=== PATIENT | male | born 1955 | race Caucasian/White ===

== ENCOUNTER 2019-07-22 21:30 | Emergency (ER) | payer OTHER, SELFPAY ==
--- NOTE | ~2019-07-22 | XR_ITS ---
EXAMINATION: XR chest 2V DATE: 07/22/2019 22:21 INDICATION: Right-sided chest pain. Shortness of breath. TECHNIQUE: PA and lateral views of the chest were obtained. COMPARISON: Chest radiograph dated 07/27/2015 FINDINGS: The lungs remain clear with no focal airspace opacities, pulmonary edema, pleural effusion or pneumot horax. The cardiomediastinal silhouette is normal. Mild thoracic dextrocurvature. IMPRESSION: 1. No acute cardiopulmonary disease. Reviewed, dictated and finalized at location A.
[2019-07-22 21:33] VITALS: BP 174/99; PULSE 104; RESP 22; O2SAT 97
--- NOTE | 2019-07-22 21:40 | PC.NURSE ---
Report to MAR Patiño.
--- NOTE | 2019-07-22 21:52 | ECG_ITS ---
Measurements Intervals [place] Rate: 99 P: 40 [place]: 171 QRS: -8 QRSD: 97 T: 3 QT: 328 QTc: 421 Interpretive Statements SINUS RHYTHM FREQUENT VENTRICULAR PREMATURE COMPLEXES INCOMPLETE RIGHT BUNDLE BRANCH BLOCK VOLTAGE CRITERIA FOR LVH BORDERLINE T WAVE ABNORMALITY- INFERIOR LEADS ABNORMAL ECG Electronically Signed On 07-23-2019 7:02:37 CDT by Eligio Ayoub D.O.
--- NOTE | 2019-07-22 21:54 | ED.CHESTPAIN ---
HPI - Chest Pain General Chief Complaint: Chest Pain Stated Complaint: cp Time Seen by Provider: 07/22/19 21:42 History of Present Illness HPI narrative: Patient presents to the ER via private car for right-sided chest pain. Started about 10 AM while at rest at home. Comes in with. Is a spiking sharp chest pain that comes for a second or 2, and will repeat, and then subside. He has no chest pain now. He has been getting increasing shortness of breath over the last month. This is primarily with walking. He has never had a problem walking before. He has had a slight cough in the last couple days. He has had no fever chills or sweats. He has heart palpitations that he feels that is not pain. These are new finding for him. He has a history of hypertension, and is on a statin for cholesterol. His doctor is watching his blood sugar. His appetite is fine, he has some bowel problems with alternating constipation. He is on 2 prostate medicines which is stopped his nocturia. He has had reflux for 30 years and has been on medication for this. 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 MD complaint: chest pain Pertinent past history: other (History of reflux) Onset (ago): hour(s) Timing of current episode: episodic Prior episodes: No Onset: during rest Pain location: right chest Pain radiation: none Severity: mild Quality: sharp Relieving factors: other (Comes and goes on its own without intervention) Exacerbating factors: nothing Treatment prior to arrival: none Risk Factors Coronary artery disease risk factors: hyperlipidemia and hypertension Thoracic aortic dissection risk factors: longstanding hypertension Related Data Home Medications Medication Instructions Recorded Confirmed finasteride 5 mg tablet 5 mg PO DAILY 01/31/19 pantoprazole 40 mg PO QAM 07/22/19 Allergies Allergy/AdvReac Type Severity Reaction Status Date / Time No Known Allergies Allergy Verified 07/22/19 22:04 Review of Systems Review of Systems: Narrative: CONSTITUTIONAL: Denies fever, chills, or sweats. EYES: Denies visual changes, redness, or discharge. ENT: Denies rhinorrhea, congestion, sore throat, or otalgia. CARDIOVASCULAR: He has chest pain, and palpitations, but not edema. RESPIRATORY: He has recently had cough and dyspnea. GASTROINTESTINAL: Denies abdominal pain, nausea, vomiting, or diarrhea. GENITOURINARY: Denies dysuria or hematuria. SKIN: Denies rash or itching. MUSCULOSKELETAL: Denies back pain, joint pain, or myalgia. NEUROLOGIC: Denies headache, numbness, or weakness. PSYCHIATRIC: Denies anxiety or depression. All systems reviewed & are unremarkable except as noted in HPI and below PMFSH Past Medical History Medical History (Updated 07/22/19 @ 22:45 by Ivanna Tse MD) Chronic GERD Essential (primary) hypertension Hx of ulcerative colitis Hyperlipidemia, unspecified Overweight (08/01/15) Surgical History Surgical History (Updated 07/22/19 @ 22:00 by Ivanna Tse MD) History of circumcision History of eye surgery History of sinus surgery Social History Social History (Updated 07/22/19 @ 22:00 by Ivanna Tse MD) Smoking status: Never smoker Alcohol intake: never Substance use: never Exam Narrative: Exam Narrative: GENERAL: Well-appearing, well-nourished, and in no acute distress. He is diaphoretic on his back. HEAD: Normocephalic, atraumatic. EYES: PERRLA and EOMI. ENT: Nares clear, no rhinorrhea or epistaxis. Mucous membranes moist. NECK: Supple. CHEST: Clear to auscultation. No respiratory distress. HEART: Rhythm matches up with the PVCs on the monitor. no murmur heard. Normal peripheral pulses. ABDOMEN: Soft, nontender, nondistended, normal active bowel sounds. EXTREMITIES: Normal range of motion. No edema. SKIN: Warm, dry, no rash. NEURO: No focal deficits. Alert and oriented x3. PSYCH: Normal mood and affect. Course Reevaluation(s) Reevaluation #1: Went in to see the patient
[2019-07-22 22:06] VITALS: PULSE 98
--- NOTE | 2019-07-22 22:06 | PC.NURSE ---
Called lab to add on Trop I
[2019-07-22 22:08] LABS: Basophils Absolute Auto 0.1 K/mm3 (0.0-0.1); Basophils Percent Auto 1.2 % (0.2-1.2); Eosinophils Absolute Auto 0.4 K/mm3 (0-0.3); Eosinophils Percent Auto 5.6 % (0-4.4); Hematocrit 44.5 % (42.0-52.0); Hemoglobin 14.8 g/dL (14.0-18.0); Immature Granulocyte Absolute 0.01 K/mm3 (0.00-0.031); Immature Granulocyte Percent A 0.1 % (0-0.5); Lymphocytes Absolute Auto 2.16 K/mm3 (0.9-3.2); Lymphocytes Percent Auto 28.6 % (18.3-44.2); Mean Corpuscular HGB Conc 33.3 g/dl (32-36); Mean Corpuscular Hemoglobin 29.3 pg (26-34); Mean Corpuscular Volume 88.1 fl (80-100); Mean Platelet Volume 11.9 fl (7.4-10.4); Monocytes Absolute Auto 0.7 K/mm3 (0.1-0.6); Monocytes Percent Auto 9.2 % (2.6-8.5); Neutrophils Absolute Auto 4.2 K/mm3 (1.3-6.7); Neutrophils Percent Auto 55.3 % (45.5-73.1); Platelet Count Result 189 k/mm3 (150-375); Red Blood Count 5.05 M/mm3 (4.6-6.20); Red Cell Distribution Width 14.3 % (11.5-14.5); White Blood Count 7.5 K/mm3 (4.5-10.0)
[2019-07-22 22:21] LABS: Alanine Aminotransferase 26 U/L (4-50); Albumin Level 4.2 g/dL (3.5-5.1); Alkaline Phosphatase 67 U/L (38-126); Aspartate Amino Transferase 31 U/L (17-59); Bilirubin,Total 0.5 mg/dL (0.2-1.3); Blood Urea Nitrogen 20 mg/dL (9-20); Calcium 9.3 mg/dL (8.4-10.2); Carbon Dioxide 32 mmol/L (22-30); Chloride 101 mmol/L (98-107); Estimated CRCL calculation 74 ml/min; Estimated Glomerular Filt Rate 56; Glucose 106 mg/dL (75-110); Potassium 3.8 mmol/L (3.4-5.0); Sodium 139 mmol/L (137-145)
[2019-07-22 22:22] LABS: INR 1.1
[2019-07-22 22:26] VITALS: BP 155/87; PULSE 94; RESP 18; O2SAT 95
[2019-07-22 22:31] LABS: D Dimer 0.27 ug/mL (<0.48)
[2019-07-22 22:33] LABS: NT Pro B Type Natriuretic Pept 58 PG/ML (5-100); Troponin I < 0.012 ng/mL (0.000-0.034)
[2019-07-22 22:52] VITALS: BP 151/79; PULSE 92; RESP 18; O2SAT 96
[2019-07-22 23:34] VITALS: BP 139/65; PULSE 88; RESP 18; O2SAT 96
[2019-07-23 15:57] LABS: SARS-CoV-2 RNA PCR Negative
== END 2019-07-22 23:30 | disposition home or self-care (01) ==
PROVIDERS: Emergency Provider Emergency Medicine; PCP Internal Medicine
DX: R07.89 Other chest pain (principal); I49.3 Ventricular premature depolarization; I10 Essential (primary) hypertension; E78.5 Hyperlipidemia, unspecified; K21.9 Gastro-esophageal reflux disease without esophagitis; E66.3 Overweight; Z68.38 Body mass index [BMI] 38.0-38.9, adult
CPT/HCPCS: 36415; 71046; 80053; 83036; 83880; 84484; 85025; 85380; 85610; 87635; 93005; 99284; C9803; U0003

== ENCOUNTER 2019-07-26 06:53 | Outpatient (CLI) | payer OTHER, SELFPAY ==
[2019-07-26 07:45] LABS: Alanine Aminotransferase 25 U/L (4-50); Alkaline Phosphatase 67 U/L (38-126); Aspartate Amino Transferase 28 U/L (17-59); Bilirubin,Total 0.9 mg/dL (0.2-1.3); Blood Urea Nitrogen 19 mg/dL (9-20); Calcium 8.9 mg/dL (8.4-10.2); Carbon Dioxide 29 mmol/L (22-30); Chloride 103 mmol/L (98-107); Cholesterol 124 mg/dL (0-200); Estimated Glomerular Filt Rate > 60; Glucose 100 mg/dL (75-110); HDL Direct 32 mg/dL; Potassium 3.9 mmol/L (3.4-5.0); Sodium 137 mmol/L (137-145); Triglycerides 91 mg/dL (<150)
[2019-07-26 07:56] LABS: LDL Cholesterol Direct 68 mg/dL
[2019-07-26 08:26] LABS: Hemoglobin A1C 5.7 % (<5.7)
== END 2019-07-26 06:54 | disposition home or self-care (01) ==
PROVIDERS: PCP Internal Medicine; Referring Provider Internal Medicine Cardiovascular Disease; Visit Provider Internal Medicine
DX: E78.5 Hyperlipidemia, unspecified (principal); Z87.898 Personal history of other specified conditions; I10 Essential (primary) hypertension; Z51.81 Encounter for therapeutic drug level monitoring; R00.2 Palpitations
CPT/HCPCS: 36415; 80053; 80061; 83036; 84443

== ENCOUNTER 2019-07-27 07:15 | Outpatient (CLI) | payer OTHER, SELFPAY ==
--- NOTE | 2019-08-08 06:32 | SLEEP_ITS ---
Home sleep test. DATE OF STUDY: 07/27/2019 REASON FOR STUDY: Poor stamina, decreased energy, hypersomnia. HISTORY: This patient is a 63-year-old male, 6 feet tall, weighing 285 pounds with a body mass index of 38.6. For the past several months, he has had decreased stamina and decreased energy. He is not particularly sleepy, but he does have lack of energy during the daytime. He constantly snores and it is frequently loud enough that others complain about it. He occasionally awakens at night with heartburn, belching, or coughing. He does not awaken from sleep feeling short of breath. He does not have trouble sleeping with cold, does not gasp for breath at night or have witnessed breathing difficulties observed by others. He occasionally sweats excessively at night and notices his heart pounding or beating irregularly at night. He does not fall asleep during the day, does not feel sleepy while driving, does not have loss of muscle tone with strong emotion, does not feel paralyzed on waking or falling asleep and does not have vivid dream-like scenes upon awakening or falling asleep. He is never afraid to go to sleep. He occasionally remembers his dreams. He rarely has racing thoughts. He does not feel sad or depressed. He rarely has anxiety. He does not have muscular tension, does not notice parts of his body jerking, and he does not kick at night. He does not have crawly or achy feelings in the legs at night or leg pain at night. He occasionally grinds his teeth. He frequently wakes up feeling stiff in the morning, occasionally with sore or achy muscles. He has dizziness, stomach problems, fatigue and takes antacids regularly. Normal bedtime is between 10:30 and 11:00 p.m., falling asleep within 5-10 minutes, waking at 6:00 a.m. On weekends, he stays up 1 hour later. After an average night of sleep, he feels better in the morning, usually refreshed. PAST MEDICAL HISTORY: Hypertension, palpitations. MEDICATIONS: Ramipril 10 mg a day, hydrochlorothiazide 12.5 mg a day, finasteride 5 mg a day, atorvastatin 10 mg a day, pantoprazole 40 mg for GERD, and tadalafil 5 mg for prostate. HABITS: Never smoked tobacco. Caffeine, one ice tea per day. No alcohol or recreational drugs. DESCRIPTION OF THE STUDY: On the [place] Sleepiness Scale, his score is 4. This was conducted as an unattended portable home sleep test using 4 channel monitoring including respiratory effort channel, oxygen saturation channel, heart rate channe,l and snore channel. The duration of the study was 6 hours 27 minutes. The apnea-hypopnea index was 15.8. The oxygen desaturation index is 14.7. Lowest desaturation was 78%. He had 17 apneas, nine apneas or 53% were obstructive, 8 apneas or 47% were central, and he had 85 hypopneas. He had 1263 snoring events and 95 desaturations, spending 6 minutes or 2% of the study below 88% saturation. Heart rate ranged from 56 to 97. IMPRESSION: This home sleep test shows evidence of at least moderate obstructive sleep apnea syndrome G47.33 with an apnea-hypopnea index of 15.8, minimum saturation of 78%, slight predominance of obstructive apneas. This patient has hypertension. He would benefit by a trial of AutoPAP with pressures 5 cm to 20 cm with an appropriate mask and heated humidifier. Close followup is recommended. If he does not respond to empiric therapy, a CPAP titration is indicated. IDA BEACH M.D. LINUX ADMIN LINUX ADMIN D Darleen MT: Coleen MCNULTY
== END 2019-07-27 07:16 | disposition home or self-care (01) ==
LOC: ANHCSM 07:16
PROVIDERS: PCP Internal Medicine; Visit Provider Internal Medicine Cardiovascular Disease
DX: G47.33 Obstructive sleep apnea (adult) (pediatric) (principal)
CPT/HCPCS: 95806

== ENCOUNTER 2020-01-16 06:58 | Outpatient (CLI) | payer OTHER, SELFPAY ==
[2020-01-16 07:49] LABS: Alanine Aminotransferase 38 U/L (4-50); Albumin Level 3.7 g/dL (3.5-5.1); Alkaline Phosphatase 59 U/L (38-126); Anion Gap 0 mmol/L (8-16); Aspartate Amino Transferase 37 U/L (17-59); Bilirubin,Total 0.9 mg/dL (0.2-1.3); Blood Urea Nitrogen 20 mg/dL (9-20); Calcium 9.2 mg/dL (8.4-10.2); Carbon Dioxide 36 mmol/L (22-30); Chloride 102 mmol/L (98-107); Cholesterol 124 mg/dL (0-200); Estimated Glomerular Filt Rate > 60; Glucose 109 mg/dL (75-110); HDL Direct 31 mg/dL; Potassium 4.2 mmol/L (3.4-5.0); Sodium 138 mmol/L (137-145); Triglycerides 108 mg/dL (<150)
[2020-01-16 07:50] LABS: Hemoglobin A1C 5.6 % (<5.7)
[2020-01-16 07:59] LABS: LDL Cholesterol Direct 66 mg/dL
[2020-01-16 08:21] LABS: Prostate Specific Antigen 0.8 ng/mL (< OR = 4.0)
== END 2020-01-16 06:59 | disposition home or self-care (01) ==
PROVIDERS: PCP Internal Medicine; Visit Provider Internal Medicine
DX: Z51.81 Encounter for therapeutic drug level monitoring (principal); I10 Essential (primary) hypertension; Z12.5 Encounter for screening for malignant neoplasm of prostate; R73.03 Prediabetes; E78.5 Hyperlipidemia, unspecified
CPT/HCPCS: 36415; 80053; 80061; 83036; 84153; G0103

== ENCOUNTER 2020-01-21 01:32 | Outpatient (CLI) | payer OTHER, SELFPAY ==
[2020-01-21 18:52] LABS: SARS-CoV-2 RNA PCR Negative
== END 2020-01-21 01:33 | disposition home or self-care (01) ==
LOC: ANHCOVIDDT 01:33
PROVIDERS: PCP Internal Medicine; Visit Provider Internal Medicine Gastroenterology
DX: Z01.818 Encounter for other preprocedural examination (principal); Z20.828 Contact with and (suspected) exposure to other viral communicable diseases
CPT/HCPCS: 87635; C9803; U0003

== ENCOUNTER 2020-01-24 00:19 | Day surgery (SDC) | payer OTHER, SELFPAY ==
[2020-01-17 15:11] VITALS: BMI 39.4
--- NOTE | 2020-01-23 13:01 | WPDANESEPPF ---
Anes - Initial Pre Proc Eval Procedure: Operation Date: 01/24/20 07:30 Proposed Procedures p Esophagogastroduodenoscopy & Colonoscopy - Scotty Cortes DO Date/Time: 01/23/20 13:01 Surgeon: Scotty Cortes DO Pre Op Diagnosis: Narrowing of Stool, Esophageal Stricture Patient Data Age: 64 Gender: M Height: 1.83 m Weight: 132 kg Allergies Allergy/AdvReac Type Severity Reaction Status Date / Time No Known Allergies Allergy Verified 01/24/20 06:15 Home Medications Medication Instructions Recorded Confirmed Type atorvastatin 10 mg tablet 10 mg PO DAILY #90 tablet 01/18/20 01/24/20 Rx finasteride 5 mg tablet 5 mg PO DAILY #90 tablet 01/18/20 01/24/20 Rx hydrochlorothiazide 12.5 mg capsule 12.5 mg PO DAILY #90 cap 01/18/20 01/24/20 Rx metoprolol succinate 25 mg 25 mg PO DAILY #90 tablet 01/18/20 01/24/20 Rx tablet,extended release 24 hr pantoprazole 40 mg tablet,delayed 40 mg PO QAM #90 tablet 01/18/20 01/24/20 Rx release tadalafil 5 mg tablet 5 mg PO DAILY #90 tablet 01/18/20 01/24/20 Rx valsartan 160 mg tablet 160 mg PO DAILY #90 tablet 01/18/20 01/24/20 Rx Patient hx anesthesia problems: none Family hx anesthesia problems: none PMFSH Past Medical History Medical History (Updated 01/23/20 @ 13:02 by Orville Beasley MD) Chronic GERD Essential (primary) hypertension Hx of ulcerative colitis Hyperlipidemia, unspecified Obesity Surgical History Surgical History History of circumcision History of eye surgery History of sinus surgery Family History Family History Other Diabetes mellitus Hypertension Social History Social History Smoking status: Never smoker Alcohol intake: never Substance use: never Substance use type: does not use Spiritual care concerns: No Anes - Eval Final PreProcedure Day of Procedure 01/23/20 13:01 Patient weight: obese Heart: regular rate and rhythm Lungs: clear to auscultation and normal air movement Airway: Mallampati scale class II Neurological: alert and oriented Last oral intake: >/= 8 hours ASA classification: III Emergent: no Anesthetic plan: proceed Anesthesia type and monitoring: general GIVS Informed Consent: The patient's anesthetic plan and its attendant risks and benefits were discussed with the patient/family/POA. Questions were solicited and answers provided to the satisfaction of the patient/family/POA.
[2020-01-24 06:16] VITALS: BP 124/76; PULSE 97; RESP 16; TEMP 36.1; O2SAT 95; BMI 38.9
[2020-01-24] MEDS: LACTATED RINGERS 1,000 ML 150 ML IV CONT (06:31)
--- NOTE | 2020-01-24 07:32 | PM.IMHP ---
H&P: HPI History of Present Illness Date/Time: 01/24/20 07:32 Chief complaint: Narrowing of Stool, Esophageal Stricture Narrative: Reason for visit EGD and colonoscopy. This very pleasant gentleman seen in consultation request of the primary physician. Impression: Year very pleasant gentleman is here for colonoscopy. He has had a change in bowel habits. This may be functional in nature. Underlying inflammatory or neoplastic disease should be excluded. History of GERD with dysphagia. Underlying ring stricture should be excluded. Obesity. Hypertension. Hyperlipidemia. Recommendation: EGD and colonoscopy. History: This very pleasant gentleman has a history of Reflux disease. He has occasional breakthrough symptoms. He is having dysphagia to solid foods. He is here for EGD. Patient also noted a change in bowel habits. He notices pencil stools. Hematochezia, melena acholic stools or tonight. He is here for colonoscopy. Physical examination: General: very pleasant patient in no acute distress. HEENT: Head was normocephalic sclerae is clear mouth without masses neck was supple. Heart: Rate rhythm regular without S3 or S4. Lungs: CTA. Abdomen: Soft with no guarding or rigidity. Bowel sounds were active. Neurologic: Cranial nerves 2 through 12 intact. No focal defects. No clonus. Musculoskeletal system: Revealed no joint tenderness or swelling no muscle atrophy. Extremities: Reveal no significant edema. Skin: Warm and dry with normal turgor. Mental status: intact. Patient is alert and oriented. Review of Systems Review of Systems: All systems reviewed & are unremarkable except as noted in HPI and below PMFSH Past Medical History Medical History (Updated 01/24/20 @ 07:31 by Scotty Cortes DO) Chronic GERD Essential (primary) hypertension Hyperlipidemia, unspecified Obesity Surgical History Surgical History History of circumcision History of eye surgery History of sinus surgery Family History Family History Other Diabetes mellitus Hypertension Social History Social History Smoking status: Never smoker Alcohol intake: never Substance use: never Substance use type: does not use Spiritual care concerns: No Meds Home Medications and Allergies Home Medications Medication Instructions Recorded Confirmed Type atorvastatin 10 mg tablet 10 mg PO DAILY #90 tablet 01/18/20 01/24/20 Rx finasteride 5 mg tablet 5 mg PO DAILY #90 tablet 01/18/20 01/24/20 Rx hydrochlorothiazide 12.5 mg capsule 12.5 mg PO DAILY #90 cap 01/18/20 01/24/20 Rx metoprolol succinate 25 mg 25 mg PO DAILY #90 tablet 01/18/20 01/24/20 Rx tablet,extended release 24 hr pantoprazole 40 mg tablet,delayed 40 mg PO QAM #90 tablet 01/18/20 01/24/20 Rx release tadalafil 5 mg tablet 5 mg PO DAILY #90 tablet 01/18/20 01/24/20 Rx valsartan 160 mg tablet 160 mg PO DAILY #90 tablet 01/18/20 01/24/20 Rx Allergies Allergy/AdvReac Type Severity Reaction Status Date / Time No Known Allergies Allergy Verified 01/24/20 06:15 Vital Signs Vital Signs - 24 hr 01/24/20 06:16 Temperature 36.1 C L Pulse Rate 97 Respiratory Rate 16 Blood Pressure 124/76 Pulse Oximetry 95
--- NOTE | 2020-01-24 07:54 | SUR.OPER ---
0747- EGD ENDED 755-COLONOSCOPY STARTED
[2020-01-24 08:15] VITALS: BP 109/73; PULSE 73; RESP 13; O2SAT 98
[2020-01-24 08:25] VITALS: BP 112/72; PULSE 77; RESP 22; O2SAT 97
[2020-01-24 08:35] VITALS: BP 119/74; PULSE 77; RESP 20; O2SAT 96
== END 2020-01-24 09:20 | disposition home or self-care (01) ==
PROVIDERS: PCP Internal Medicine; Visit Provider Internal Medicine Gastroenterology
PROC: 0DJ08ZZ Inspection of Upper Intestinal Tract, Via Natural or Artificial Opening Endoscopic (ICD-10-PCS; CPT 43235; principal; 2020-01-24 07:30)
DX: Z12.11 Encounter for screening for malignant neoplasm of colon (principal); K62.1 Rectal polyp; D12.2 Benign neoplasm of ascending colon; D12.0 Benign neoplasm of cecum; K64.8 Other hemorrhoids; K44.9 Diaphragmatic hernia without obstruction or gangrene; K22.2 Esophageal obstruction; K31.7 Polyp of stomach and duodenum; K20.0 Eosinophilic esophagitis; K29.70 Gastritis, unspecified, without bleeding; I10 Essential (primary) hypertension; E78.5 Hyperlipidemia, unspecified; E66.9 Obesity, unspecified; Z68.38 Body mass index [BMI] 38.0-38.9, adult
CPT/HCPCS: 45385; 45380; 43239; 43249; 87081; 88305; C1726; J2704; J7120

== ENCOUNTER 2020-02-01 16:26 | Outpatient (CLI) | payer OTHER, SELFPAY ==
--- NOTE | ~2020-02-01 | CT_ITS ---
EXAMINATION: CT abdomen pelvis w con EXAM DATE: 02/01/2020 17:06 INDICATION: Diaphragmatic hernia without obstruction or gangrene. TECHNIQUE: Spiral CT of the abdomen and pelvis was performed following intravenous injection of 100 m L Omnipaque 350. Axial, coronal and sagittal images were reviewed. The dose-length product (DLP) fo r this examination was 1667.66 mGy-cm. The exposure was tailored according to patient size (auto mA exposure control), and iterative reconstruction (ASIR) was used as additional dose reduction techniqu e. Comparison is made to prior examination from 05/11/2008. FINDINGS: The liver, spleen, adrenal glands and pancreas are unremarkable. Gallbladder is unremarkab le. No biliary obstruction. Portal and splenic veins are patent. Kidneys enhance symmetrically. T here is no hydronephrosis. There is mild prostatomegaly. The bladder is unremarkable. There is no retroperitoneal or pelvic lymphadenopathy. No abdominal wall hernias. The appendix is normal. There is small sliding gastroesophageal hiatal hernia. There is expected am ount of colonic stool. No free intraperitoneal gas. The heart is normal in size. Coronary arterie s were imaged, only minimal left anterior descending punctate calcification. There are no pericardial or pleural effusions. The lung bases are unremarkable. There are no osteoblastic or osteolytic les ions identified. Moderate lower lumbar facet arthropathy. Mild thoracolumbar endplate osteophytosis. IMPRESSION: 1. Small sliding gastroesophageal hiatal hernia. 2. Mild prostatomegaly. Reviewed, dictated and finalized at location A. SURIZATION MECHANIC
== END 2020-02-01 16:27 | disposition home or self-care (01) ==
PROVIDERS: PCP Internal Medicine; Visit Provider Internal Medicine Gastroenterology
DX: K44.9 Diaphragmatic hernia without obstruction or gangrene (principal); N40.0 Benign prostatic hyperplasia without lower urinary tract symptoms
CPT/HCPCS: 74177; Q9967

== ENCOUNTER 2020-02-05 07:35 | Outpatient (CLI) | payer OTHER, SELFPAY ==
--- NOTE | ~2020-02-05 | XR_ITS ---
EXAMINATION: XR UGIAC w barium swallow DATE: 02/05/2020 08:43 INDICATION: Diaphragmatic hernia without obstruction and without gangrene, eosinophilic esophagitis a nd recent esophageal dilatation. TECHNIQUE: The patient drank thick barium, gas-producing crystals, and thin barium. Conventional supi ne abdomen radiographs and fluoroscopy of the esophagus, stomach, and proximal small bowel were perfo rmed. Fluoroscopy exposure time was 2.3 minutes. The DAP for this procedure was 20.568 Gycm2. COMPARISON: None. FINDINGS: There is a short segment, smooth stricture of the distal esophagus likely corresponding to the affected area described in the endoscopy report. Esophageal motility is normal. There is a small sliding hiatal hernia. There was no gastroesophageal reflux with provocative maneuvers. The stomach a nd proximal small bowel show normal folding patterns. IMPRESSION: 1. Short segment smooth stricture of the distal esophagus, consistent with history of eosinophilic es ophagitis. 2. Small sliding hiatal hernia. Reviewed, dictated and finalized at location A. VAULT ATTENDANT IMPRESSION: 1. Short segment smooth stricture of the distal esophagus, consistent with hist ory of eosinophilic esophagitis. 2. Small sliding hiatal hernia.
== END 2020-02-05 07:36 | disposition home or self-care (01) ==
LOC: ANHIMG 07:39
PROVIDERS: PCP Internal Medicine; Visit Provider Internal Medicine Gastroenterology
DX: K44.9 Diaphragmatic hernia without obstruction or gangrene (principal)
CPT/HCPCS: 74246

== ENCOUNTER 2020-02-20 07:34 | Outpatient (CLI) | payer OTHER, SELFPAY ==
--- NOTE | 2020-02-21 06:58 | P.PCNPFT_ITS ---
PFT Interpretation This is a pulmonary function test with pre and post-bronchodilator spirometry, plethysmography and diffusing capacity. The test was performed and results interpreted in accordance with the 2019 and 2005 ATS/ERS Task Force guidelines respectively using the Daniel/Pollevi reference equations. Findings: Spirometry: The contour of the inspiratory and expiratory flow tracing are normal. The pre-bronchodilator FVC is 3.93, 81% predicted. The pre- bronchodilator FEV1 is 3.13 L, 94% predicted. The FEV1:FVC ratio is 80%. The post-bronchodilator FVC is 3.79 L, representing a 4% decrease. The post- bronchodilator FEV1 is 3.12 L, representing no change. Plethysmography: The total lung capacity is 6.54 L, 92% predicted. The functional residual capacity is 2.56 L, 79% predicted. The residual volume is 2.47 L, 96% predicted. Diffusing capacity: The absolute diffusing capacity is 25.2, 83% predicted. The diffusing capacity corrected for alveolar volume is 4.80, 127% predicted. Impression: The spirometry is normal without evidence of an obstructive abnormality. There is no significant improvement after inhaling a single dose of albuterol. The lung volumes are normal. The absolute diffusing capacity is normal and the diffusing capacity corrected for alveolar volume is increased. There are no prior studies for comparison.
== END 2020-02-20 07:35 | disposition home or self-care (01) ==
PROVIDERS: PCP Internal Medicine; Visit Provider Internal Medicine
DX: R06.00 Dyspnea, unspecified (principal)
CPT/HCPCS: 94060; 94726; 94729

== ENCOUNTER 2020-03-19 08:03 | Outpatient (CLI) | payer OTHER, SELFPAY ==
[2020-03-19 08:43] LABS: Alanine Aminotransferase 54 U/L (4-50); Aspartate Amino Transferase 46 U/L (17-59)
== END 2020-03-19 08:04 | disposition home or self-care (01) ==
LOC: ANHLAB 08:06
PROVIDERS: PCP Internal Medicine; Visit Provider Podiatrist Foot & Ankle Surgery
DX: B35.1 Tinea unguium (principal)
CPT/HCPCS: 36415; 84450; 84460

== ENCOUNTER 2020-06-16 15:21 | Outpatient (CLI) | payer OTHER, SELFPAY ==
[2020-06-16 15:46] LABS: Alanine Aminotransferase 26 U/L (4-50); Aspartate Amino Transferase 35 U/L (17-59)
== END 2020-06-16 15:22 | disposition home or self-care (01) ==
LOC: ANHLAB 15:24
PROVIDERS: PCP Internal Medicine; Visit Provider Podiatrist Foot & Ankle Surgery
DX: B35.1 Tinea unguium (principal)
CPT/HCPCS: 36415; 84450; 84460

== ENCOUNTER → 2020-07-07 01:59 | Outpatient (CLI) | payer OTHER, SELFPAY ==
[2020-07-09 12:48] LABS: SARS-CoV-2 RNA PCR Negative
== END ==
PROVIDERS: PCP Internal Medicine; Visit Provider Internal Medicine Gastroenterology
DX: Z01.812 Encounter for preprocedural laboratory examination (principal); Z20.822 Contact with and (suspected) exposure to COVID-19
CPT/HCPCS: C9803; U0003; U0005

== ENCOUNTER 2020-07-10 01:15 | Day surgery (SDC) | payer OTHER, SELFPAY ==
[2020-06-30 15:52] VITALS: BMI 38.8
[2020-07-10 06:21] VITALS: BP 122/79; PULSE 73; RESP 17; TEMP 36; O2SAT 95; BMI 40.2
[2020-07-10] MEDS: LACTATED RINGERS 1,000 ML 150 ML IV CONT (06:24)
--- NOTE | 2020-07-10 07:09 | WPDANESEPPF ---
Anes - Initial Pre Proc Eval Procedure: Operation Date: 07/10/20 07:30 Proposed Procedures p Esophagogastroduodenoscopy - Scotty Cortes DO Date/Time: 07/10/20 07:09 Surgeon: Scotty Cortes DO Pre Op Diagnosis: diaphragmatic hernia w/o obs or gangrene Patient Data Age: 64 Gender: M Height: 6 ft Weight: 134.6 kg Last Vital Signs Temp 96.8 F L 07/10/20 06:21 Pulse 73 07/10/20 06:21 Resp 17 07/10/20 06:21 BP 122/79 07/10/20 06:21 Pulse Ox 95 07/10/20 06:21 Allergies Allergy/AdvReac Type Severity Reaction Status Date / Time No Known Allergies Allergy Verified 07/10/20 06:19 Home Medications Medication Instructions Recorded Confirmed Type atorvastatin 10 mg tablet 10 mg PO DAILY #90 tablet 01/18/20 07/10/20 Rx finasteride 5 mg tablet 5 mg PO DAILY #90 tablet 01/18/20 07/10/20 Rx hydrochlorothiazide 12.5 mg capsule 12.5 mg PO DAILY #90 cap 01/18/20 07/10/20 Rx metoprolol succinate 25 mg 25 mg PO DAILY #90 tablet 01/18/20 07/10/20 Rx tablet,extended release 24 hr valsartan 160 mg tablet 160 mg PO DAILY #90 tablet 01/18/20 07/10/20 Rx pantoprazole [Protonix] 40 mg PO BID #180 tablet 01/24/20 07/10/20 Rx tadalafil 5 mg tablet 5 mg PO DAILY #90 tablet 07/08/20 07/10/20 Rx Patient hx anesthesia problems: none Family hx anesthesia problems: none PMFSH Past Medical History Medical History (Updated 01/24/20 @ 08:17 by Scotty Cortes DO) Adenomatous colon polyp Esophageal stricture Essential (primary) hypertension GERD (gastroesophageal reflux disease) Hernia, diaphragmatic Hyperlipidemia, unspecified Obesity Surgical History Surgical History History of circumcision History of eye surgery History of sinus surgery Family History Family History Other Diabetes mellitus Hypertension Social History Social History Smoking status: Never smoker Alcohol intake: never Substance use: never Substance use type: does not use Living arrangements: with family Spiritual care concerns: No Anes - Eval Final PreProcedure Day of Procedure 07/10/20 07:09 Patient weight: morbidly obese Heart: regular rate and rhythm Lungs: clear to auscultation Airway: Mallampati scale class III Neurological: alert and oriented Last oral intake: >/= 8 hours ASA classification: III Emergent: no Anesthetic plan: proceed Anesthesia type and monitoring: general GIVS and standard monitoring Informed Consent: The patient's anesthetic plan and its attendant risks and benefits were discussed with the patient/family/POA. Questions were solicited and answers provided to the satisfaction of the patient/family/POA.
--- NOTE | 2020-07-10 07:24 | P.CONGI_ITS ---
GI Consult Note Consult date/time: 07/10/20 07:24 HPI: Reason for visit EGD. Very pleasant gentleman seen at the request the primary physician. Impression: GERD/eosinophilic esophagitis. He does have a history of esophageal stricture formation. Adenomatous colon polyps. HLD. HTN. Obesity. Recommendation: EGD. History: This very pleasant gentleman is a history of reflux disease and eosinophilic esophagitis. He is here for endoscopic evaluation to assess for im provement. He does have some mild dysphagia at times. Intolerance to fluticasone. Physical examination: General: very pleasant patient in no acute distress. HEENT: Head was normocephalic sclerae is clear mouth without masses neck was supple. Heart: Rate rhythm regular without S3 or S4. Lungs: CTA. Abdomen: Soft with no guarding or rigidity. Bowel sounds were active. Neurologic: Cranial nerves 2 through 12 intact. No focal defects. No clonus. Musculoskeletal system: Revealed no joint tenderness or swelling no muscle atrophy. Extremities: Reveal no significant edema. Skin: Warm and dry with normal turgor. Mental status: intact. Patient is alert and oriented. Review of Systems Review of Systems: All systems reviewed & are unremarkable except as noted in HPI and below PMFSH Past Medical History Medical History (Updated 01/24/20 @ 08:17 by Scotty Cortes DO) Adenomatous colon polyp Esophageal stricture Essential (primary) hypertension GERD (gastroesophageal reflux disease) Hernia, diaphragmatic Hyperlipidemia, unspecified Obesity Surgical History Surgical History History of circumcision History of eye surgery History of sinus surgery Family History Family History Other Diabetes mellitus Hypertension Social History Social History Smoking status: Never smoker Alcohol intake: never Substance use: never Substance use type: does not use Living arrangements: with family Spiritual care concerns: No Meds Home Medications and Allergies Home Medications Medication Instructions Recorded Confirmed Type atorvastatin 10 mg tablet 10 mg PO DAILY #90 tablet 01/18/20 07/10/20 Rx finasteride 5 mg tablet 5 mg PO DAILY #90 tablet 01/18/20 07/10/20 Rx hydrochlorothiazide 12.5 mg capsule 12.5 mg PO DAILY #90 cap 01/18/20 07/10/20 Rx metoprolol succinate 25 mg 25 mg PO DAILY #90 tablet 01/18/20 07/10/20 Rx tablet,extended release 24 hr valsartan 160 mg tablet 160 mg PO DAILY #90 tablet 01/18/20 07/10/20 Rx pantoprazole [Protonix] 40 mg PO BID #180 tablet 01/24/20 07/10/20 Rx tadalafil 5 mg tablet 5 mg PO DAILY #90 tablet 07/08/20 07/10/20 Rx Allergies Allergy/AdvReac Type Severity Reaction Status Date / Time No Known Allergies Allergy Verified 07/10/20 06:19 Vital Signs Vital Signs - 24 hr 07/10/20 06:21 Temperature 36.0 C L Pulse Rate 73 Respiratory Rate 17 Blood Pressure 122/79 Pulse Oximetry 95
[2020-07-10 07:47] VITALS: BP 108/73; PULSE 74; RESP 21; O2SAT 98
[2020-07-10 07:57] VITALS: BP 112/71; PULSE 74; RESP 22; O2SAT 97
[2020-07-10 08:07] VITALS: BP 126/76; PULSE 72; RESP 16; O2SAT 96
== END 2020-07-10 08:19 | disposition home or self-care (01) ==
PROVIDERS: PCP Internal Medicine; Visit Provider Internal Medicine Gastroenterology
PROC: 0DJ08ZZ Inspection of Upper Intestinal Tract, Via Natural or Artificial Opening Endoscopic (ICD-10-PCS; CPT 43235; principal; 2020-07-10 07:30)
DX: K21.00 Gastro-esophageal reflux disease with esophagitis, without bleeding (principal); K20.0 Eosinophilic esophagitis; K22.2 Esophageal obstruction; K44.9 Diaphragmatic hernia without obstruction or gangrene; I10 Essential (primary) hypertension; E78.5 Hyperlipidemia, unspecified; E66.9 Obesity, unspecified; Z86.010 Personal history of colon polyps
CPT/HCPCS: 43239; 43450; 88305; J2704; J7120

== ENCOUNTER 2020-07-11 08:32 | Outpatient (CLI) | payer OTHER, SELFPAY ==
[2020-07-11 09:02] LABS: Hemoglobin A1C 5.7 % (<5.7)
[2020-07-11 09:04] LABS: Alanine Aminotransferase 28 U/L (4-50); Albumin Level 3.8 g/dL (3.5-5.1); Alkaline Phosphatase 61 U/L (38-126); Anion Gap 4 mmol/L (8-16); Aspartate Amino Transferase 30 U/L (17-59); Bilirubin,Total 0.8 mg/dL (0.2-1.3); Blood Urea Nitrogen 14 mg/dL (9-20); Calcium 9.5 mg/dL (8.4-10.2); Carbon Dioxide 34 mmol/L (22-30); Chloride 106 mmol/L (98-107); Cholesterol 123 mg/dL (0-200); Estimated Glomerular Filt Rate > 60; Glucose 106 mg/dL (75-110); HDL Direct 31 mg/dL; Potassium 4.6 mmol/L (3.4-5.0); Sodium 144 mmol/L (137-145); Triglycerides 94 mg/dL (<150)
[2020-07-11 09:15] LABS: LDL Cholesterol Direct 58 mg/dL
[2020-07-11 09:39] LABS: Vitamin D 25 Hydroxy 60.5 ng/mL
== END 2020-07-11 08:33 | disposition home or self-care (01) ==
PROVIDERS: PCP Internal Medicine; Visit Provider Internal Medicine
DX: E78.5 Hyperlipidemia, unspecified (principal); E55.9 Vitamin D deficiency, unspecified; Z87.898 Personal history of other specified conditions; I10 Essential (primary) hypertension; Z51.81 Encounter for therapeutic drug level monitoring; Z79.899 Other long term (current) drug therapy
CPT/HCPCS: 36415; 80053; 80061; 82306; 83036

== ENCOUNTER 2020-08-07 11:37 | Outpatient (CLI) | payer OTHER, SELFPAY ==
[2020-08-07 13:16] LABS: Basophils Absolute Auto 0.1 K/mm3 (0.0-0.1); Basophils Percent Auto 1.4 % (0.2-1.2); Eosinophils Absolute Auto 0.3 K/mm3 (0-0.3); Eosinophils Percent Auto 5.6 % (0-4.4); Hematocrit 42.3 % (42.0-52.0); Immature Granulocyte Absolute 0.01 K/mm3 (0.00-0.031); Immature Granulocyte Percent A 0.2 % (0-0.5); Lymphocytes Absolute Auto 1.26 K/mm3 (0.9-3.2); Lymphocytes Percent Auto 25.2 % (18.3-44.2); Mean Corpuscular HGB Conc 33.1 g/dl (32-36); Mean Corpuscular Hemoglobin 29.5 pg (26-34); Mean Corpuscular Volume 89.2 fl (80-100); Mean Platelet Volume 11.8 fl (7.4-10.4); Monocytes Absolute Auto 0.4 K/mm3 (0.1-0.6); Monocytes Percent Auto 7.8 % (2.6-8.5); Neutrophils Percent Auto 59.8 % (45.5-73.1); Platelet Count Result 186 k/mm3 (150-375); Red Blood Count 4.74 M/mm3 (4.6-6.20); Red Cell Distribution Width 14.2 % (11.5-14.5)
[2020-08-12 03:09] LABS: Immunoglobulin E 77 kU/L (<=114)
== END 2020-08-07 11:38 | disposition home or self-care (01) ==
LOC: ANHLAB 11:40
PROVIDERS: PCP Internal Medicine
DX: K20.0 Eosinophilic esophagitis (principal)
CPT/HCPCS: 36415; 82785; 85025; 86003

== ENCOUNTER 2020-09-25 15:30 | Outpatient (RCR) | payer OTHER, SELFPAY ==
--- NOTE | 2020-08-04 16:14 | PTOPEVAL ---
Thank you for referring Ron Gutierrez to [facility].? The patient is scheduled to be seen for therapy? 2 x/week for 6 weeks. Please review, sign, date and return this plan of care SHEFALI. I agree with and certify that the following plan of care is medically necessary. Referring Physician Date Attending Provider: Uday Gomez MD Problem Diagnosis right shoulder pain Onset 1 yrs Subjective Information He reports increased pain Query Text:As Reported By Patient/ after practicing and perform Family trap shooting activities over the years. He perform a lot of yardwork at his house and sons house. Denies any stretching program. He has increased pain with sleeping if on right shoulder after 20 minutes. Denies pain with seated task of computer or driving. Increased pain with lifting task especially if out to the side. Diagnostic Tests X-Rays For This Problem Yes: [type 2] acromion without degenerative changes Pain Assessment Self Report Pain Assessment Right Shoulder(s) Reported Pain Level 2 Pain Description Sharp,Tender on Palpation Pain Frequency Chronic,Continuous Lowest Pain Intensity 1 Greatest Pain Intensity 7 Pain Aggravating Factors Exercise/Activity,Lifting, Prolonged Position Pain Behaviors None Pain Score Pain Score 2: Self Report Upper Extremity Range of Motion Scapular/ Shoulder Range of Motion Left Shoulder Flexion - Active 160 Shoulder Extension - Active 53 Shoulder Abduction - Active 175 Shoulder Medial Rotation - Active T7 Reach Behind the Back Shoulder Lateral Rotation - Active T2 Reach Behind the Head Right Shoulder Flexion - Active 150 Shoulder Extension - Active 35 Shoulder Abduction - Active 125 Shoulder Medial Rotation - Active 75 Shoulder Medial Rotation - Active L1 Reach Behind the Back Shoulder Lateral Rotation - Active 65 Shoulder Lateral Rotation - Active C6 Reach Behind the Head Scapular/Shoulder Range of Motion Pain Limitations Scapular/Shoulder Range of Motion all motions Comments Upper Extremity Muscle Strength Testing General Upper Extremity Strength Gross Upper Extremity Strength Comments 5/5 radha shoulder motions, no pain middle trap: 3-/5, lower trap:
[2020-09-01 15:00] VITALS: BP_SYST 170
--- NOTE | 2020-09-01 16:01 | PTOPEVAL ---
Thank you for referring Ron A Page to [facility].? See summary below for detailed information on Ron's progress with UE function. He requires additional skilled therapy services to address remaining impairments and achieve therapy goals. The patient is scheduled to be seen for therapy?2 x/week for 3 weeks. Please review, sign, date and return this plan of care SHEFALI. I agree with and certify that the following plan of care is medically necessary. Referring Physician Date Attending Provider: Uday Gomez MD Physical Therapy Progress Note Diagnosis right shoulder pain Onset 1 yrs Subjective Information He is able to move the Query Text:As Reported By Patient/ shoulder in all directions Family without pain. He is able to perform yard work activities without increased symptoms. He cont to have increased pain with sleeping if on right shoulder after 45 min to 60 minutes. Increased pain with shoulder int. rotation stretch. Increased pain and difficulty with reaching behind back for ADL's. Pain Assessment Self Report Pain Assessment Right Shoulder(s) Reported Pain Level 0 Pain Description Aching,Soreness Pain Frequency Intermittent Lowest Pain Intensity 0 Greatest Pain Intensity 3 Pain Aggravating Factors Exercise/Activity,Prolonged Position Upper Extremity Range of Motion Scapular/ Shoulder Range of Motion Left Shoulder Flexion - Active 160 Shoulder Extension - Active 53 Shoulder Abduction - Active 175 Shoulder Medial Rotation - Active T10:Reach Behind the Back Shoulder Lateral Rotation - Active T1:Reach Behind the Head Right Shoulder Flexion - Active 168 Shoulder Extension - Active 50 Shoulder Abduction - Active 150 Shoulder Abduction - Passive 170 Shoulder Medial Rotation - Active 65 Shoulder Medial Rotation - Passive 70 Shoulder Medial Rotation - Active T11:Reach Behind the Back Shoulder Lateral Rotation - Active 65 Shoulder Lateral Rotation - Passive 78 Shoulder Lateral Rotation - Active T1:Reach Behind the Head Scapular/Shoulder Range of Motion Pain Scapular/Shoulder Range of Motion int/ext rotation motion Upper Extremity Muscle Strength Testing General Upper Extremity Strength Gross Upper Extremity Strength Comments 5/5 radha shoulder motions, no pain middle trap: 3/5, lower trap: 2+/5 Palpation Assessment Palpation
--- NOTE | 2020-09-29 08:52 | PTOPEVAL ---
Physical Therapy Progress Note/Discharge Note Thank you for referring Ron A Page to [facility].? Ron has received 13 therapy visits to address his right shoulder pain and limitations. He reports improved UE function and ability to perform daily task. He demonstrates normal shoulder motion and strength. He has returned to his normal daily task. He has achieved his therapy goals at this time. Will DC skilled therapy services with recommendations for him to continue with his home program. Please review, sign, date and return this discharge summary SHEFALI. I agree with and certify that the following plan of care is medically necessary. Referring Physician Date Attending Provider: Uday Gomez MD Diagnosis right shoulder pain Onset 1 yrs Subjective Information He is able to move the Query Text:As Reported By Patient/ shoulder in all directions Family without pain. His right deltiod is sore from his allergy shots. He denies any problems with yard work. He is able to ari sleeping on left UE for 1 hr. Denies any limitations with reaching behind back or head motions. Pain Assessment Self Report Pain Assessment Right Shoulder(s) Reported Pain Level 0 Upper Extremity Range of Motion Scapular/ Shoulder Range of Motion Left Shoulder Flexion - Active 160 Shoulder Extension - Active 53 Shoulder Abduction - Active 175 Shoulder Medial Rotation - Active T10:Reach Behind the Back Shoulder Lateral Rotation - Active T1:Reach Behind the Head Right Shoulder Flexion - Active 168 Shoulder Extension - Active 52 Shoulder Abduction - Active 170 Shoulder Medial Rotation - Active 65 Shoulder Medial Rotation - Passive 80 Shoulder Medial Rotation - Active T11:Reach Behind the Back Shoulder Lateral Rotation - Active 75 Shoulder Lateral Rotation - Active T1:Reach Behind the Head Upper Extremity Muscle Strength Testing General Upper Extremity Strength Gross Upper Extremity Strength Comments 5/5 radha shoulder motions, no pain middle trap and rhomboid: 4-/5, lower trap: 3/5 PT Clinical Summary Pt referred to therapy due to right shoulder pain. He has received 13 therapy visits from 08/04/20 to 09/25/20. He denies any limitations with shoulder motion, UE daily task, reaching motions in all directions and yardwork task. He reports improved ability
== END 2020-09-30 14:22 | disposition home or self-care (01) ==
LOC: ANHPT 15:30
PROVIDERS: PCP Internal Medicine; Visit Provider Orthopaedic Surgery
DX: M25.511 Pain in right shoulder (principal)
CPT/HCPCS: 97035; 97110; 97140; 97161

== ENCOUNTER → 2020-10-07 10:38 | Outpatient (CLI) | payer OTHER, SELFPAY ==
[2020-10-07 19:41] LABS: SARS-CoV-2 RNA PCR Negative
== END ==
PROVIDERS: PCP Internal Medicine; Visit Provider Internal Medicine
DX: R68.89 Other general symptoms and signs (principal); Z20.822 Contact with and (suspected) exposure to COVID-19
CPT/HCPCS: C9803; U0003; U0005

== ENCOUNTER 2021-01-19 07:06 | Outpatient (CLI) | payer OTHER, SELFPAY ==
[2021-01-19 07:56] LABS: Alanine Aminotransferase 33 U/L (4-50); Albumin Level 4.1 g/dL (3.5-5.1); Alkaline Phosphatase 63 U/L (38-126); Anion Gap 6 mmol/L (8-16); Aspartate Amino Transferase 35 U/L (17-59); Bilirubin,Total 0.8 mg/dL (0.2-1.3); Blood Urea Nitrogen 18 mg/dL (9-20); Calcium 9.4 mg/dL (8.4-10.2); Carbon Dioxide 28 mmol/L (22-30); Chloride 101 mmol/L (98-107); Cholesterol 129 mg/dL (0-200); Estimated Glomerular Filt Rate > 60; Glucose 106 mg/dL (65-110); HDL Direct 36 mg/dL; Potassium 3.9 mmol/L (3.4-5.0); Sodium 135 mmol/L (137-145); Triglycerides 90 mg/dL (<150)
[2021-01-19 08:05] LABS: Hemoglobin A1C 5.6 % (<5.7)
[2021-01-19 08:08] LABS: LDL Cholesterol Direct 67 mg/dL
[2021-01-19 08:26] LABS: Prostate Specific Antigen 0.8 ng/mL (< OR = 4.0)
[2021-01-19 13:35] LABS: Vitamin D 25 Hydroxy 57.6 ng/mL
== END 2021-01-19 07:07 | disposition home or self-care (01) ==
LOC: ANHLAB 07:08
PROVIDERS: PCP Internal Medicine; Visit Provider Internal Medicine
DX: E55.9 Vitamin D deficiency, unspecified (principal); I10 Essential (primary) hypertension; Z51.81 Encounter for therapeutic drug level monitoring; E78.5 Hyperlipidemia, unspecified; Z12.5 Encounter for screening for malignant neoplasm of prostate; Z87.898 Personal history of other specified conditions
CPT/HCPCS: 36415; 80053; 80061; 82306; 83036; 84153; G0103

== ENCOUNTER 2021-02-16 00:17 | Day surgery (SDC) | payer OTHER, SELFPAY ==
[2021-01-28 14:00] VITALS: BMI 39.4
[2021-02-16 11:40] VITALS: BP 162/81; PULSE 71; RESP 18; TEMP 36; O2SAT 99; BMI 39.6
--- NOTE | 2021-02-16 11:52 | P.PNAN_ITS ---
Anes - Initial Pre Proc Eval Procedure: Operation Date: 02/16/21 13:00 Proposed Procedures p Esophagogastroduodenoscopy - Festus Mcnamara MD Date/Time: 02/16/21 11:52 Surgeon: Festus Mcnamara MD Pre Op Diagnosis: eosinophillic esophagitis Patient Data Age: 65 Gender: M Height: 1.83 m Weight: 132 kg Allergies Allergy/AdvReac Type Severity Reaction Status Date / Time No Known Allergies Allergy Verified 02/16/21 11:48 Home Medications Medication Instructions Recorded Confirmed Type pantoprazole [Protonix] 40 mg PO BID #180 tablet 01/24/20 02/16/21 Rx metoprolol succinate 25 mg 25 mg PO DAILY #90 tablet 11/12/20 02/16/21 Rx tablet,extended release 24 hr valsartan 160 mg tablet 160 mg PO DAILY #90 tablet 11/12/20 02/16/21 Rx tadalafil 5 mg tablet 5 mg PO DAILY #90 tablet 11/17/20 02/16/21 Rx hydrochlorothiazide 12.5 mg capsule 12.5 mg PO DAILY #90 cap 12/08/20 02/16/21 Rx finasteride 5 mg tablet 5 mg PO DAILY #90 tablet 12/18/20 02/16/21 Rx atorvastatin 10 mg tablet 10 mg PO DAILY #90 tablet 01/09/21 02/16/21 Rx Patient hx anesthesia problems: none Family hx anesthesia problems: none Results Review: All pre-operative results and documents have been reviewed as part of the pre-operative evaluation. [facility] Past Medical History Medical History (Updated 01/01/21 @ 10:45 by Festus Mcnamara MD) Adenomatous colon polyp Eosinophilic esophagitis Esophageal stricture Essential (primary) hypertension GERD (gastroesophageal reflux disease) Hernia, diaphragmatic Hyperlipidemia, unspecified Obesity Surgical History Surgical History History of circumcision History of eye surgery History of sinus surgery Family History Family History Other Diabetes mellitus Hypertension Social History Social History (Updated 01/23/21 @ 15:31 by Sabrina Segura) Smoking status: Never smoker Second hand tobacco smoke exposure: No Alcohol intake: never Alcohol use details: Rarely Substance use: never Substance use type: does not use Living arrangements: with family Spiritual care concerns: No Anes - Eval Final PreProcedure Day of Procedure 02/16/21 11:52 Patient weight: obese Heart: regular rate and rhythm Lungs: clear to auscultation and normal air movement Airway: Mallampati scale class II Neurological: alert and oriented Last oral intake: >/= 8 hours ASA classification: III Emergent: no Anesthetic plan: proceed Anesthesia type and monitoring: general GIVS and standard monitoring Results Review: All pre-operative results and documents have been reviewed as part of the pre-operative evaluation. Informed Consent: The patient's anesthetic plan and its attendant risks and benefits were discussed with the patient/family/POA. Questions were solicited and answers provided to the satisfaction of the patient/family/POA.
[2021-02-16] MEDS: LACTATED RINGERS 1,000 ML 150 ML IV CONT (12:03)
--- NOTE | 2021-02-16 12:15 | PM.HPGS ---
History of Present Illness History of Present Illness Consent: Risks, benefits, and alternatives have been discussed and questions answered. Patient agrees to proceed with procedure. Chief complaint: eosinophillic esophagitis Narrative: Ron Gutierrez is a 65 year old male with EoE on ppi and also treatment by sign language teacher. Last EGD 06/2020 Review of Systems Constitutional: Constitutional: Denies headache(s) and Denies weakness Eyes: Eyes: Denies blurry vision ENT: Reports Normal hearing present, Denies headache(s) and Denies neck pain Cardiovascular: Cardiovascular: Denies chest pain and Denies dyspnea Respiratory: Respiratory: Denies dyspnea Gastrointestinal: Gastrointestinal: Reports no additional gastrointestinal complaints Genitourinary: Genitourinary: Denies dysuria Musculoskeletal: Musculoskeletal: Denies neck pain Integumentary/Breasts: Skin/Breast: Denies dry skin Neurologic: Reports Normal hearing present, Denies headache(s) and Denies weakness Psychiatric: Psychiatric: Denies anxiety Endocrine: Endocrine: Denies change in body appearance Hematologic/Lymphatic: Hematologic/Lymphatic: Denies easy bleeding Allergic/Immunologic: Allergic/Immunologic: Denies urticaria PMF Past Medical History Medical History (Updated 01/01/21 @ 10:45 by Festus Mcnamara MD) Adenomatous colon polyp Eosinophilic esophagitis Esophageal stricture Essential (primary) hypertension GERD (gastroesophageal reflux disease) Hernia, diaphragmatic Hyperlipidemia, unspecified Obesity Surgical History Surgical History History of circumcision History of eye surgery History of sinus surgery Family History Family History Other Diabetes mellitus Hypertension Social History Social History (Updated 01/23/21 @ 15:31 by Sabrina Segura) Smoking status: Never smoker Second hand tobacco smoke exposure: No Alcohol intake: never Alcohol use details: Rarely Substance use: never Substance use type: does not use Living arrangements: with family Spiritual care concerns: No Meds Home Medications and Allergies Home Medications Medication Instructions Recorded Confirmed Type pantoprazole [Protonix] 40 mg PO BID #180 tablet 01/24/20 02/16/21 Rx metoprolol succinate 25 mg 25 mg PO DAILY #90 tablet 11/12/20 02/16/21 Rx tablet,extended release 24 hr valsartan 160 mg tablet 160 mg PO DAILY #90 tablet 11/12/20 02/16/21 Rx tadalafil 5 mg tablet 5 mg PO DAILY #90 tablet 11/17/20 02/16/21 Rx hydrochlorothiazide 12.5 mg capsule 12.5 mg PO DAILY #90 cap 12/08/20 02/16/21 Rx finasteride 5 mg tablet 5 mg PO DAILY #90 tablet 12/18/20 02/16/21 Rx atorvastatin 10 mg tablet 10 mg PO DAILY #90 tablet 01/09/21 02/16/21 Rx Allergies Allergy/AdvReac Type Severity Reaction Status Date / Time No Known Allergies Allergy Verified 02/16/21 11:48 Vital Signs Vital Signs - 24 hr 02/16/21 11:40 Temperature 96.8 F L Pulse Rate 71 Respiratory Rate 18 Blood Pressure 162/81 H Pulse Oximetry 99 Exam Const: General: comfortable and no acute distress HENMT: General nose exam: Normal nares present Eyes: General: appearance normal, both eyes and all related structures Neck: Neck: no JVD Resp: Auscultation: clear to auscultation bilaterally Cardio: Rate: regular rate Rhythm: regular rhythm GI: Inspection: non-distended GI Palp: Yes Soft to palpation Skin: General skin exam: normal color Neuro: General: gait normal Speech: normal speech Extrem: General: normal to inspection Psych: Mental Status: mental status grossly normal Assessment and Plan Assessment and plan (1) Eosinophilic esophagitis: Code(s): K20.0 - Eosinophilic esophagitis Status: Acute Assessment and Plan: egd with bx, may need dilation based on findings
[2021-02-16 12:34] VITALS: BP 130/61; PULSE 69; RESP 15; O2SAT 98
[2021-02-16 12:44] VITALS: BP 109/57; PULSE 64; RESP 14; O2SAT 97
[2021-02-16 12:54] VITALS: BP 123/67; PULSE 62; RESP 18; O2SAT 99
== END 2021-02-16 13:08 | disposition home or self-care (01) ==
PROVIDERS: PCP Internal Medicine; Visit Provider Internal Medicine Gastroenterology
PROC: 0DJ08ZZ Inspection of Upper Intestinal Tract, Via Natural or Artificial Opening Endoscopic (ICD-10-PCS; CPT 43235; principal; 2021-02-16 13:00)
DX: R13.19 Other dysphagia (principal); K20.0 Eosinophilic esophagitis; K31.7 Polyp of stomach and duodenum; K22.2 Esophageal obstruction; K44.9 Diaphragmatic hernia without obstruction or gangrene; K29.70 Gastritis, unspecified, without bleeding; K29.50 Unspecified chronic gastritis without bleeding; I10 Essential (primary) hypertension; K21.9 Gastro-esophageal reflux disease without esophagitis; E78.5 Hyperlipidemia, unspecified; E66.9 Obesity, unspecified; Z68.39 Body mass index [BMI] 39.0-39.9, adult
CPT/HCPCS: 43239; 43249; 88305; C1726; J2704; J7120

== ENCOUNTER 2021-07-24 09:10 | Outpatient (CLI) | payer OTHER, SELFPAY ==
[2021-07-24 09:44] LABS: Alanine Aminotransferase 25 U/L (6-50); Albumin Level 3.9 g/dL (3.5-5.1); Alkaline Phosphatase 57 U/L (38-126); Anion Gap 3 mmol/L (8-16); Aspartate Amino Transferase 34 U/L (17-59); Bilirubin,Total 0.8 mg/dL (0.2-1.3); Blood Urea Nitrogen 18 mg/dL (9-20); Calcium 8.7 mg/dL (8.4-10.2); Carbon Dioxide 32 mmol/L (22-30); Chloride 103 mmol/L (98-107); Cholesterol 120 mg/dL (0-200); Estimated Glomerular Filt Rate > 60; Glucose 98 mg/dL (65-110); HDL Direct 34 mg/dL; Potassium 4.3 mmol/L (3.4-5.0); Sodium 138 mmol/L (137-145); Triglycerides 95 mg/dL (<150)
[2021-07-24 09:55] LABS: LDL Cholesterol Direct 58 mg/dL
[2021-07-24 10:18] LABS: Hemoglobin A1C 5.8 % (<5.7)
== END 2021-07-24 09:11 | disposition home or self-care (01) ==
PROVIDERS: PCP Internal Medicine; Visit Provider Internal Medicine
DX: I10 Essential (primary) hypertension (principal); Z51.81 Encounter for therapeutic drug level monitoring; E78.5 Hyperlipidemia, unspecified; Z87.898 Personal history of other specified conditions
CPT/HCPCS: 36415; 80053; 80061; 83036

== ENCOUNTER 2021-09-24 19:17 | Emergency (ER) | payer OTHER, SELFPAY ==
--- NOTE | 2021-09-24 19:22 | ED.URI ---
HPI - URI/Sore Throat General Chief Complaint: Upper Respiratory Infection Stated Complaint: sore throat Time Seen by Provider: 09/24/21 19:34 Source: patient and RN notes reviewed Mode of arrival: ambulatory Limitations: no limitations History of Present Illness HPI Narrative: 66-year-old male presents with concern for sore throat that started this morning. He reports painful swallowing. He reports he occasionally has postnasal drainage that may cause a sore throat, however this feels different than usual, it currently feels slightly swollen. He reports a mild headache. He reports he took a COVID test at home today which was negative. He denies any known sick contacts. Patient has history of eosinophilic esophagitis, reports he was seen by his elevated guard recently and has a follow-up appointment in November, however he reports the symptoms do not resemble symptoms he has with eosinophilic esophagitis. MD elicited complaint: sore throat Related Data Allergies Allergy/AdvReac Type Severity Reaction Status Date / Time No Known Allergies Allergy Verified 09/24/21 19:22 Review of Systems Review of Systems: CONSTITUTIONAL: Denies malaise, chills, sweats, or fever. EYES: Denies visual changes, redness, or discharge. ENT: Denies rhinorrhea, congestion, sinus pain, otalgia. Reports sore throat, painful swallowing CARDIOVASCULAR: Denies chest pain, palpitations, or edema. RESPIRATORY: Denies cough. Denies dyspnea. GASTROINTESTINAL: Denies abdominal pain, nausea, vomiting, diarrhea SKIN: Denies rash or itching. MUSCULOSKELETAL: Denies myalgia. NEUROLOGIC: Reports headache. All systems reviewed & are unremarkable except as noted in HPI and below PMFSH Past Medical History Medical History Adenomatous colon polyp Eosinophilic esophagitis Esophageal stricture Essential (primary) hypertension GERD (gastroesophageal reflux disease) Hernia, diaphragmatic Hyperlipidemia, unspecified Obesity Surgical History Surgical History History of circumcision History of eye surgery History of sinus surgery Family History Family History Other Diabetes mellitus Hypertension Social History Social History Smoking status: Never smoker Second hand tobacco smoke exposure: No Alcohol intake: never Alcohol use details: Rarely Substance use: never Substance use type: does not use Spiritual care concerns: No Comments At time of signature, agree with nursing past medical, surgical, social and family history. There is no relevant family history pertinent to the presenting complaint Exam Narrative: GENERAL: Well-appearing and in no acute distress. HEAD: Normocephalic EYES: PERRLA, conjunctivae clear ENT: Nares clear. Mucous membranes moist. TM pearly ruiz with sharp light reflex bilaterally; no tragal tenderness. Oropharynx erythematous without lesions, postnasal drainage noted Tonsils not enlarged and without exudate, no drooling, no hoarseness, no trismus, uvula midline. NECK: Supple. No lymphadenopathy CHEST: Clear to auscultation, breath sounds equal. No wheezing, rhonchi, rales, or stridor. No respiratory distress, speaks in full sentences. HEART: Regular rate and rhythm. No murmur heard. SKIN: Warm, dry, no rash. NEURO: Alert and oriented x3. PSYCH: Normal mood and affect Course Course Emergency Course: Patient is aware of diagnosis, understands and agrees to treatment plan. Anticipatory guidance given. Patient agrees to follow-up as directed and is aware of reasons to seek care at the emergency department. Portions of this record may have been created with voice recognition software Level of Care: Express Care Visit Vital Signs Vital signs: Reviewed. Patient has history of hypertension MDM - URI/So
[2021-09-24 19:24] VITALS: BP 163/85; PULSE 85; RESP 20; TEMP 37; O2SAT 100
== END 2021-09-24 19:45 | disposition home or self-care (01) ==
PROVIDERS: Emergency Provider Nurse Practitioner; PCP Internal Medicine
DX: J02.9 Acute pharyngitis, unspecified (principal); I10 Essential (primary) hypertension; K21.9 Gastro-esophageal reflux disease without esophagitis; E78.5 Hyperlipidemia, unspecified; E66.9 Obesity, unspecified; Z68.39 Body mass index [BMI] 39.0-39.9, adult
CPT/HCPCS: 87081; 87880; 99213; G0463

== ENCOUNTER 2021-11-27 01:16 | Day surgery (SDC) | payer OTHER, SELFPAY ==
[2021-11-11 14:59] VITALS: BMI 39.9
[2021-11-27 06:34] VITALS: BP 152/88; PULSE 77; RESP 18; TEMP 36.4; O2SAT 96
[2021-11-27] MEDS: LACTATED RINGERS 1,000 ML 150 ML IV CONT (06:36)
--- NOTE | 2021-11-27 07:25 | WPDANESEPPF ---
Anes - Initial Pre Proc Eval Procedure: Operation Date: 11/27/21 07:30 Proposed Procedures p Esophagogastroduodenoscopy - Festus Mcnamara MD Date/Time: 11/27/21 07:25 Surgeon: Festus Mcnamara MD Pre Op Diagnosis: eosinophilic esophagitis Patient Data Age: 66 Gender: M Height: 1.83 m Weight: 134.8 kg Last Vital Signs Temp 97.5 F L 11/27/21 06:34 Pulse 77 11/27/21 06:34 Resp 18 11/27/21 06:34 BP 152/88 H 11/27/21 06:34 Pulse Ox 96 11/27/21 06:34 O2 Del Method Room Air 11/27/21 06:34 Allergies Allergy/AdvReac Type Severity Reaction Status Date / Time No Known Allergies Allergy Verified 11/27/21 06:32 Home Medications Medication Instructions Recorded Confirmed Type valsartan 160 mg tablet 160 mg PO DAILY #90 tabs 11/12/20 11/27/21 Rx atorvastatin 10 mg tablet 10 mg PO DAILY #90 tabs 01/09/21 11/27/21 Rx pantoprazole 40 mg tablet,delayed 40 mg PO BID #180 tabs 05/27/21 11/27/21 Rx release (Protonix) metoprolol succinate 25 mg 25 mg PO DAILY #90 tabs 10/16/21 11/27/21 Rx tablet,extended release 24 hr finasteride 5 mg tablet 5 mg PO DAILY #90 tabs 11/09/21 11/27/21 Rx hydrochlorothiazide 12.5 mg capsule 12.5 mg PO DAILY #90 caps 11/09/21 11/27/21 Rx dupilumab 300 mg/2 mL subcutaneous 300 mg subcut WEEKLY 11/11/21 11/27/21 History syringe (Dupixent) tadalafil 5 mg tablet 5 mg PO DAILY 11/27/21 11/27/21 History Patient hx anesthesia problems: none Family hx anesthesia problems: none Results Review: All pre-operative results and documents have been reviewed as part of the pre-operative evaluation. [facility] Past Medical History Medical History Adenomatous colon polyp Eosinophilic esophagitis Esophageal stricture Essential (primary) hypertension GERD (gastroesophageal reflux disease) Hepatitis 1975 Hernia, diaphragmatic Hyperlipidemia, unspecified Obesity Surgical History Surgical History History of circumcision History of eye surgery History of sinus surgery Family History Family History Other Diabetes mellitus Hypertension Social History Social History Smoking status: Never smoker Second hand tobacco smoke exposure: No Alcohol intake: never Alcohol use details: Rarely Substance use: never Substance use type: does not use Living arrangements: with family Spiritual care concerns: No Anes - Eval Final PreProcedure Day of Procedure 11/27/21 07:25 Patient weight: morbidly obese Heart: regular rate and rhythm Lungs: clear to auscultation Airway: Mallampati scale class II Neurological: alert and oriented Last oral intake: >/= 8 hours ASA classification: III Emergent: no Anesthetic plan: proceed Anesthesia type and monitoring: general GIVS and standard monitoring Results Review: All pre-operative results and documents have been reviewed as part of the pre-operative evaluation. Informed Consent: The patient's anesthetic plan and its attendant risks and benefits were discussed with the patient/family/POA. Questions were solicited and answers provided to the satisfaction of the patient/family/POA.
--- NOTE | 2021-11-27 07:28 | PM.HPGS ---
History of Present Illness History of Present Illness Consent: Risks, benefits, and alternatives have been discussed and questions answered. Patient agrees to proceed with procedure. Chief complaint: eosinophilic esophagitis Narrative: Ron Gutierrez is a 66 year old male here for another egd. He has longstanding history of reflux disease and eosinophilic esophagitis who required about 20-25 EGD during his lifetime, EGD 06/2020 showed significant improvement of EoE and dilated with [address] Cortes, then EGD 02/2021 with normal esophagus (only mild reflux in distal esophagus), had non-obstructive ring at GEJ with small HH dilated up to 16.5mm TTS balloon. About 1 month ago started on dupixent, early to tell if any improvement and thinks that may need another dilation. Review of Systems Constitutional: Constitutional: Denies headache(s) and Denies weakness Eyes: Eyes: Denies blurry vision ENT: Reports Normal hearing present, Denies headache(s) and Denies neck pain Cardiovascular: Cardiovascular: Denies chest pain and Denies dyspnea Respiratory: Respiratory: Denies dyspnea Gastrointestinal: Gastrointestinal: Reports no additional gastrointestinal complaints Genitourinary: Genitourinary: Denies dysuria Musculoskeletal: Musculoskeletal: Denies neck pain Integumentary/Breasts: Skin/Breast: Denies dry skin Neurologic: Reports Normal hearing present, Denies headache(s) and Denies weakness Psychiatric: Psychiatric: Denies anxiety Endocrine: Endocrine: Denies change in body appearance Hematologic/Lymphatic: Hematologic/Lymphatic: Denies easy bleeding Allergic/Immunologic: Allergic/Immunologic: Denies urticaria PMFSH Past Medical History Medical History Adenomatous colon polyp Eosinophilic esophagitis Esophageal stricture Essential (primary) hypertension GERD (gastroesophageal reflux disease) Hepatitis 1975 Hernia, diaphragmatic Hyperlipidemia, unspecified Obesity Surgical History Surgical History History of circumcision History of eye surgery History of sinus surgery Family History Family History Other Diabetes mellitus Hypertension Social History Social History Smoking status: Never smoker Second hand tobacco smoke exposure: No Alcohol intake: never Alcohol use details: Rarely Substance use: never Substance use type: does not use Living arrangements: with family Spiritual care concerns: No Meds Home Medications and Allergies Home Medications Medication Instructions Recorded Confirmed Type valsartan 160 mg tablet 160 mg PO DAILY #90 tabs 11/12/20 11/27/21 Rx atorvastatin 10 mg tablet 10 mg PO DAILY #90 tabs 01/09/21 11/27/21 Rx pantoprazole 40 mg tablet,delayed 40 mg PO BID #180 tabs 05/27/21 11/27/21 Rx release (Protonix) metoprolol succinate 25 mg 25 mg PO DAILY #90 tabs 10/16/21 11/27/21 Rx tablet,extended release 24 hr finasteride 5 mg tablet 5 mg PO DAILY #90 tabs 11/09/21 11/27/21 Rx hydrochlorothiazide 12.5 mg capsule 12.5 mg PO DAILY #90 caps 11/09/21 11/27/21 Rx dupilumab 300 mg/2 mL subcutaneous 300 mg subcut WEEKLY 11/11/21 11/27/21 History syringe (Dupixent) tadalafil 5 mg tablet 5 mg PO DAILY 11/27/21 11/27/21 History Allergies Allergy/AdvReac Type Severity Reaction Status Date / Time No Known Allergies Allergy Verified 11/27/21 06:32 Vital Signs Vital Signs - 24 hr 11/27/21 06:34 Temperature 97.5 F L Pulse Rate 77 Respiratory Rate 18 Blood Pressure 152/88 H Pulse Oximetry 96 Oxygen Delivery Room Air Exam Const: General: comfortable and no acute distress HENMT: Face/Nose/Sinus: Normal nares present Eyes: General: appearance normal, both eyes and all related structures Neck: Neck: no JVD
[2021-11-27 07:51] VITALS: BP 133/88; PULSE 76; RESP 20; O2SAT 98
[2021-11-27 08:01] VITALS: BP 103/63; PULSE 72; RESP 20; O2SAT 96
[2021-11-27 08:11] VITALS: BP 133/76; PULSE 77; RESP 22; O2SAT 96
== END 2021-11-27 08:24 | disposition home or self-care (01) ==
PROVIDERS: PCP Internal Medicine; Visit Provider Internal Medicine Gastroenterology
PROC: 0DJ08ZZ Inspection of Upper Intestinal Tract, Via Natural or Artificial Opening Endoscopic (ICD-10-PCS; CPT 43235; principal; 2021-11-27 07:30)
DX: R13.19 Other dysphagia (principal); K21.9 Gastro-esophageal reflux disease without esophagitis; K22.2 Esophageal obstruction; K44.9 Diaphragmatic hernia without obstruction or gangrene; K31.7 Polyp of stomach and duodenum; Z87.898 Personal history of other specified conditions; E78.5 Hyperlipidemia, unspecified; K20.0 Eosinophilic esophagitis; E66.01 Morbid (severe) obesity due to excess calories; Z68.41 Body mass index [BMI] 40.0-44.9, adult
CPT/HCPCS: 43239; 43249; 88305; C1726; J2704; J7120

== ENCOUNTER 2022-01-06 05:55 | Day surgery (SDC) | payer OTHER, SELFPAY ==
[2021-11-30 10:45] VITALS: BMI 40.6
[2021-12-23 10:32] VITALS: BMI 40.0
--- NOTE | 2022-01-05 17:01 | WPDANESEPPF ---
Anes - Initial Pre Proc Eval Procedure: Operation Date: 01/06/22 07:30 Proposed Procedures p Excision 4cm Mass-Left Thigh - Felton Kelly DO Date/Time: 01/05/22 17:01 Surgeon: Felton Kelly DO Pre Op Diagnosis: Left Leg Mass Patient Data Age: 66 Gender: M Height: 1.83 m Weight: 134 kg Allergies Allergy/AdvReac Type Severity Reaction Status Date / Time No Known Allergies Allergy Verified 01/06/22 06:10 Home Medications Medication Instructions Recorded Confirmed Type valsartan 160 mg tablet 160 mg PO DAILY #90 tabs 11/12/20 01/06/22 Rx pantoprazole 40 mg tablet,delayed 40 mg PO BID #180 tabs 05/27/21 01/06/22 Rx release (Protonix) metoprolol succinate 25 mg 25 mg PO DAILY #90 tabs 10/16/21 01/06/22 Rx tablet,extended release 24 hr finasteride 5 mg tablet 5 mg PO DAILY #90 tabs 11/09/21 01/06/22 Rx hydrochlorothiazide 12.5 mg capsule 12.5 mg PO DAILY #90 caps 11/09/21 01/06/22 Rx dupilumab 300 mg/2 mL subcutaneous 300 mg subcut WEEKLY 11/11/21 01/06/22 History syringe (Dupixent) tadalafil 5 mg tablet 5 mg PO DAILY 11/27/21 01/06/22 History atorvastatin 10 mg tablet 10 mg PO DAILY #90 tabs 12/14/21 01/06/22 Rx Patient hx anesthesia problems: none Family hx anesthesia problems: none Results Review: All pre-operative results and documents have been reviewed as part of the pre-operative evaluation. [facility] Past Medical History Medical History Adenomatous colon polyp Eosinophilic esophagitis Esophageal stricture Essential (primary) hypertension GERD (gastroesophageal reflux disease) Hepatitis 1975 Hernia, diaphragmatic Hyperlipidemia, unspecified Obesity Surgical History Surgical History History of circumcision History of eye surgery History of sinus surgery Family History Family History Other Diabetes mellitus Hypertension Social History Social History (Reviewed 11/26/21 @ 15:37 by MANUEL Escobar Smoking status: Never smoker Second hand tobacco smoke exposure: No Alcohol intake: current Alcohol use details: Rarely Substance use: current Substance use type: does not use Living arrangements: with family Spiritual care concerns: No Anes - Eval Final PreProcedure Day of Procedure 01/05/22 17:01 Patient weight: obese Heart: regular rate and rhythm Lungs: clear to auscultation Airway: Mallampati scale class II Neurological: alert and oriented Last oral intake: >/= 8 hours ASA classification: II Emergent: no Anesthetic plan: proceed Anesthesia type and monitoring: general GIVS and standard monitoring Results Review: All pre-operative results and documents have been reviewed as part of the pre-operative evaluation. Informed Consent: The patient's anesthetic plan and its attendant risks and benefits were discussed with the patient/family/POA. Questions were solicited and answers provided to the satisfaction of the patient/family/POA.
[2022-01-06 06:20] VITALS: BP 140/83; PULSE 76; RESP 16; TEMP 36.5; O2SAT 97
[2022-01-06] MEDS: LACTATED RINGERS 1,000 ML 30 ML IV CONT (06:42)
--- NOTE | 2022-01-06 07:27 | PM.IMHP ---
H&P: HPI History of Present Illness Date/Time: 01/06/22 07:27 Chief Complaint: leg mass Narrative: 66 yo man presents for excision of leg mass. He reports no changes since seen in office. Review of Systems Review of Systems: All systems reviewed & are unremarkable except as noted in HPI and below Constitutional: Constitutional: Denies chills, Denies fever(s), Denies headache(s) and Denies weight loss Eyes: Eyes: Denies change in vision ENT: Denies dizziness, Denies headache(s), Denies neck mass and Denies throat swelling Cardiovascular: Cardiovascular: Denies chest pain, Denies lightheadedness and Denies dyspnea Respiratory: Respiratory: Denies cough, Denies dyspnea and Denies wheezing Gastrointestinal: Gastrointestinal: Denies abdominal pain, Denies change in bowel habits, Denies nausea and Denies vomiting Genitourinary: Genitourinary: Denies hematuria and Denies dysuria Musculoskeletal: Musculoskeletal: Reports as per HPI Integumentary/Breasts: Skin/Breast: Reports as per HPI Neurologic: Denies dizziness and Denies headache(s) Allergic/Immunologic: Allergic/Immunologic: Denies throat swelling and Denies wheezing [facility] Past Medical History Medical History Adenomatous colon polyp Eosinophilic esophagitis Esophageal stricture Essential (primary) hypertension GERD (gastroesophageal reflux disease) Hepatitis 1975 Hernia, diaphragmatic Hyperlipidemia, unspecified Obesity Surgical History Surgical History History of circumcision History of eye surgery History of sinus surgery Family History Family History Other Diabetes mellitus Hypertension Social History Social History Smoking status: Never smoker Second hand tobacco smoke exposure: No Alcohol intake: current Alcohol use details: Rarely Substance use: current Substance use type: does not use Living arrangements: with family Spiritual care concerns: No Meds Home Medications and Allergies Home Medications Medication Instructions Recorded Confirmed Type valsartan 160 mg tablet 160 mg PO DAILY #90 tabs 11/12/20 01/06/22 Rx pantoprazole 40 mg tablet,delayed 40 mg PO BID #180 tabs 05/27/21 01/06/22 Rx release (Protonix) metoprolol succinate 25 mg 25 mg PO DAILY #90 tabs 10/16/21 01/06/22 Rx tablet,extended release 24 hr finasteride 5 mg tablet 5 mg PO DAILY #90 tabs 11/09/21 01/06/22 Rx hydrochlorothiazide 12.5 mg capsule 12.5 mg PO DAILY #90 caps 11/09/21 01/06/22 Rx dupilumab 300 mg/2 mL subcutaneous 300 mg subcut WEEKLY 11/11/21 01/06/22 History syringe (Dupixent) tadalafil 5 mg tablet 5 mg PO DAILY 11/27/21 01/06/22 History atorvastatin 10 mg tablet 10 mg PO DAILY #90 tabs 12/14/21 01/06/22 Rx Allergies Allergy/AdvReac Type Severity Reaction Status Date / Time No Known Allergies Allergy Verified 01/06/22 06:10 Vital Signs Vital Signs - 24 hr 01/06/22 06:20 Temperature 36.5 C Pulse Rate 76 Respiratory Rate 16 Blood Pressure 140/83 Pulse Oximetry 97 Oxygen Delivery Room Air Exam Const: General: no acute distress and alert Orientation/consciousness: patient oriented x3 HENMT: Head: normocephalic and atraumatic Ears: hearing grossly normal bilaterally Face/Nose/Sinus: Normal nares present Mouth: Yes Normal oral and palatal mucosa present Eyes: Periorbital: periorbital findings normal Sclera: sclerae normal EOM: EOMs intact bilaterally Neck: Neck: normal visual inspection, no lymphadenopathy and trachea midline Chest: Chest palpation & inspection: normal inspection of the chest Resp: Effort & Inspection: normal respiratory effort Auscultation: clear to auscultation bilaterally Cardio: Jugular venous distension: no JVD Rate: regular rate Rhythm: reg
--- NOTE | 2022-01-06 07:29 | WPDHPUPDATE1 ---
History and Physical Update Update Date/Time: 01/06/22 07:29 History and Physical has been reviewed, including an updated exam of the patient. There are NO changes in the patient's condition. Risks, benefits, and alternatives have been discussed and questions answered. Patient agrees to proceed with procedure.
[2022-01-06] MEDS: LIDO 1%/EPINEPHRINE 1:100,000 20 ML VIAL 15 ML INFILTRATE (08:01)
--- NOTE | 2022-01-06 08:02 | P.OP_ITS ---
Procedure Note - Detailed Date of Procedure 01/06/22 Pre-op Diagnosis Left Leg Mass Post-op Diagnosis Same Procedure Performed excision of 4 cm left leg mass Surgeon Felton Kelly, DO Anesthesia MAC and Local ( 1% lidocaine with epinephrine) Indications this is a 66-year-old man who presented with a mass on his upper inner thigh that had been present for several years. This has gradually increased in size over the years. Discussions were made with the patient about treatment options and decision was made to proceed with excision of 4 cm left leg mass. Findings The 4 cm left leg mass was completely excised. This appeared to have a lipomatous consistency. It was within the subcutaneous space and did not appear to be tracking deeper into the muscle. The mass was completely excised and sent to the lab for pathology. Description of Procedure Procedure as well as risks, benefits, and alternatives were discussed with the patient. Written consent was obtained and placed in chart prior to procedure. Patient was brought back to surgical suite. He was placed supine on operating table. Time-out was done to confirm patient and procedure. IV sedation was then administered by the anesthesia department. His left upper thigh was prepped and draped in sterile fashion using chlorhexidine prep. 1% lidocaine with epinephrine was infiltrated locally around the mass. A 4 cm oblique incision was then made directly over the mass using a 15 blade scalpel. Electrocautery was used for hemostasis and for careful dissection around the mass. Mass was completely excised and sent to the lab for pathology. The wound bed was then inspected and hemostasis was achieved with electrocautery. No other masses or abnormalities were noted. The subcutaneous space was then closed using 3-0 Vicryl simple interrupted sutures. The skin was then approximated using 4-0 Monocryl running subcuticular suture. Exofin glue was then applied on top. The patient was then awakened from anesthesia and transf erred to recovery. Estimated Blood Loss 5 Pathology Yes ( Leg mass) Complications No immediate complications Condition Stable Disposition Same day [facility] Billing Surgery - Charge Forward: Surgery Billing
[2022-01-06 08:07] VITALS: BP 129/76; PULSE 83; RESP 16; O2SAT 100
[2022-01-06 08:22] VITALS: BP 128/77; PULSE 70; RESP 15; O2SAT 100
[2022-01-06 08:37] VITALS: BP 131/76; PULSE 67; RESP 15; O2SAT 100
[2022-01-06 08:52] VITALS: BP 126/65; PULSE 66; RESP 15; O2SAT 98
--- NOTE | 2022-01-06 10:24 | WPDANESPN ---
Anes - Prog Note Post-Op Date/Time: 01/06/22 10:24 Cardiovascular status: normal Respiratory status: normal Airway patency: baseline Mental status: baseline Post-Op hydration status: normal Vital Signs: Last Vital Signs Temp 36.5 C 01/06/22 06:20 Pulse 66 01/06/22 08:52 Resp 15 01/06/22 08:52 BP 126/65 01/06/22 08:52 Pulse Ox 98 01/06/22 08:52 O2 Del Method Room Air 01/06/22 08:52 O2 Flow Rate 6 01/06/22 08:07 Pain Score (VAS): 0 Post-procedural complaints: none Patient Feedback: Patient satisfied with anesthetic care. Other Findings: Patient vital signs back to baseline. Patient denies nausea and vomiting. Patient's pain under control. Patient OK for discharge.
== END 2022-01-06 09:15 | disposition home or self-care (01) ==
PROVIDERS: PCP Internal Medicine; Visit Provider Surgery
PROC: (CPT 27337; principal; 2022-01-06 07:30)
DX: R22.42 Localized swelling, mass and lump, left lower limb (principal)
CPT/HCPCS: 27337

== ENCOUNTER 2022-01-06 08:00 | Outpatient (NON) | payer OTHER, SELFPAY | END 2022-01-06 08:01 | disposition home or self-care (01) | PROVIDERS: PCP Internal Medicine; Visit Provider Surgery | DX: R22.42 Localized swelling, mass and lump, left lower limb (principal) | CPT/HCPCS: 88304 ==

== ENCOUNTER 2022-01-20 07:10 | Outpatient (CLI) | payer OTHER, SELFPAY ==
[2022-01-20 09:07] LABS: Alanine Aminotransferase 27 U/L (6-50); Alkaline Phosphatase 63 U/L (38-126); Anion Gap 6 mmol/L (8-16); Aspartate Amino Transferase 28 U/L (17-59); Bilirubin,Total 0.8 mg/dL (0.2-1.3); Blood Urea Nitrogen 17 mg/dL (9-20); Calcium 8.9 mg/dL (8.4-10.2); Carbon Dioxide 32 mmol/L (22-30); Chloride 104 mmol/L (98-107); Cholesterol 126 mg/dL (0-200); Estimated Glomerular Filt Rate > 60; Glucose 106 mg/dL (65-110); HDL Direct 36 mg/dL; Potassium 4.1 mmol/L (3.4-5.0); Sodium 142 mmol/L (137-145); Triglycerides 91 mg/dL (<150)
[2022-01-20 09:25] LABS: LDL Cholesterol Direct 61 mg/dL
[2022-01-20 09:31] LABS: Vitamin D 25 Hydroxy 43.9 ng/mL
[2022-01-20 09:35] LABS: Prostate Specific Antigen 1.2 ng/mL (< OR = 4.0)
== END 2022-01-20 07:11 | disposition home or self-care (01) ==
LOC: ANHLAB 07:12
PROVIDERS: PCP Internal Medicine; Visit Provider Internal Medicine
DX: Z12.5 Encounter for screening for malignant neoplasm of prostate (principal); I10 Essential (primary) hypertension; Z51.81 Encounter for therapeutic drug level monitoring; E78.5 Hyperlipidemia, unspecified; E55.9 Vitamin D deficiency, unspecified; Z87.898 Personal history of other specified conditions
CPT/HCPCS: 36415; 80053; 80061; 82306; 83036; 84153; G0103

== ENCOUNTER → 2022-05-01 11:32 | Outpatient (CLI) | payer OTHER, SELFPAY ==
--- NOTE | ~2022-05-01 | XR_ITS ---
Lumbosacral Spine: AP and lateral views Clinical History: Pain Findings: The normal lordotic curve is maintained. The vertebral bodies and posterior elements are i ntact. Moderate degenerative disc change at the T12-L1. There is mild degenerative disc change at L1- L2. There is facet arthropathy from L4 through S1. The sacroiliac joints are normally outlined. Impression: Mild degenerative changes, as above. Reviewed, dictated and finalized at location M. Impression: Mild degenerative changes, as above.
--- NOTE | ~2022-05-01 | XR_ITS ---
Thoracic spine: Clinical Indication: Pain AP and lateral views were performed. No fracture is seen. There is normal alignment of the vertebrae. Mild to moderate degenerative disc change at T11-T12 and T12-L1. Paravertebral soft tissues appear normal. Impression: [id number] degenerative disc change at the lower thoracic spine, as detailed above. Reviewed, dictated and finalized at location . Impression: [id number] degenerative disc change at the lower thoracic spine, as kezia led above.
--- NOTE | ~2022-05-01 | XR_ITS ---
Cervical Spine: AP, lateral, open-mouth views Clinical History: Pain Findings: The normal lordotic curve is maintained. The vertebral bodies and posterior elements appea r intact. The intervertebral disc spaces are well maintained. Pre-vertebral soft tissues are unremar kable. Impression: No significant abnormality is seen. Reviewed, dictated and finalized at [facility]. Impression: No significant abnormality is seen.
== END ==
PROVIDERS: PCP Internal Medicine; Visit Provider Chiropractor
DX: M51.36 Other intervertebral disc degeneration, lumbar region (principal); M51.34 Other intervertebral disc degeneration, thoracic region
CPT/HCPCS: 72040; 72070; 72100

== ENCOUNTER 2022-07-30 07:30 | Outpatient (CLI) | payer OTHER, SELFPAY ==
[2022-07-30 07:48] LABS: Hemoglobin 13.7 g/dL (14.0-18.0); Mean Corpuscular HGB Conc 32.6 g/dl (32-36); Mean Corpuscular Hemoglobin 29.1 pg (26-34); Mean Corpuscular Volume 89.4 fl (80-100); Mean Platelet Volume 10.9 fl (7.4-10.4); Platelet Count Result 162 k/mm3 (150-375); Red Cell Distribution Width 14.1 % (11.5-14.5); White Blood Count 5.1 K/mm3 (4.5-10.0)
[2022-07-30 08:27] LABS: Alanine Aminotransferase 27 U/L (6-50); Albumin Level 3.9 g/dL (3.5-5.1); Alkaline Phosphatase 62 U/L (38-126); Anion Gap 4 mmol/L (8-16); Aspartate Amino Transferase 31 U/L (17-59); Bilirubin,Total 0.8 mg/dL (0.2-1.3); Blood Urea Nitrogen 13 mg/dL (9-20); Calcium 8.7 mg/dL (8.4-10.2); Carbon Dioxide 32 mmol/L (22-30); Chloride 104 mmol/L (98-107); Cholesterol 116 mg/dL (0-200); Estimated Glomerular Filt Rate > 60; Glucose 107 mg/dL (65-110); HDL Direct 34 mg/dL; Potassium 4.2 mmol/L (3.4-5.0); Sodium 140 mmol/L (137-145); Triglycerides 78 mg/dL (<150)
[2022-07-30 08:38] LABS: LDL Cholesterol Direct 61 mg/dL
[2022-07-30 10:39] LABS: Vitamin D 25 Hydroxy 40.5 ng/mL
[2022-07-30 11:11] LABS: Hemoglobin A1C 5.5 % (<5.7)
== END 2022-07-30 07:31 | disposition home or self-care (01) ==
LOC: ANHLAB 07:31
PROVIDERS: PCP Family Medicine; Visit Provider Family Medicine
DX: Z00.00 Encounter for general adult medical examination without abnormal findings (principal); E55.9 Vitamin D deficiency, unspecified; Z87.898 Personal history of other specified conditions; K21.9 Gastro-esophageal reflux disease without esophagitis; N40.0 Benign prostatic hyperplasia without lower urinary tract symptoms; Z87.19 Personal history of other diseases of the digestive system; I10 Essential (primary) hypertension; Z51.81 Encounter for therapeutic drug level monitoring; E78.5 Hyperlipidemia, unspecified
CPT/HCPCS: 36415; 80053; 80061; 82306; 83036; 85027

== ENCOUNTER 2022-09-29 10:04 | Outpatient (CLI) | payer OTHER, SELFPAY ==
[2022-09-29 19:26] LABS: Hematocrit 43.8 % (42.0-52.0); Hemoglobin 14.6 g/dL (14.0-18.0); Mean Corpuscular HGB Conc 33.3 g/dl (32-36); Mean Corpuscular Hemoglobin 29.7 pg (26-34); Mean Corpuscular Volume 89.2 fl (80-100); Platelet Count Result 211 k/mm3 (150-375); Red Blood Count 4.91 M/mm3 (4.6-6.20); Red Cell Distribution Width 14.9 % (11.5-14.5); White Blood Count 10.7 K/mm3 (4.5-10.0)
[2022-09-29 20:52] LABS: Alanine Aminotransferase 32 U/L (6-50); Alkaline Phosphatase 67 U/L (38-126); Anion Gap 6 mmol/L (8-16); Aspartate Amino Transferase 30 U/L (17-59); Bilirubin,Total 0.6 mg/dL (0.2-1.3); Blood Urea Nitrogen 23 mg/dL (9-20); Calcium 9.2 mg/dL (8.4-10.2); Carbon Dioxide 27 mmol/L (22-30); Chloride 107 mmol/L (98-107); Estimated Glomerular Filt Rate 55; Glucose 92 mg/dL (65-110); Potassium 4.3 mmol/L (3.4-5.0); Sodium 140 mmol/L (137-145)
== END 2022-09-29 10:05 | disposition home or self-care (01) ==
PROVIDERS: Visit Provider Family Medicine
DX: Z00.00 Encounter for general adult medical examination without abnormal findings (principal); R35.0 Frequency of micturition
CPT/HCPCS: 36415; 80053; 85027; 87086

== ENCOUNTER → 2022-09-29 10:21 | Outpatient (CLI) | payer OTHER, SELFPAY ==
--- NOTE | ~2022-09-29 | MR_ITS ---
EXAMINATION: MR brain/brain stem wo con DATE: 09/29/2022 11:14 INDICATION: Persistent migraine. TECHNIQUE: Magnetic resonance imaging (MRI) of the brain and brainstem was performed without intraven ous contrast. COMPARISON: Brain MRA 01/15/2005 FINDINGS: There are scattered areas of nonspecific increased T2-weighted signal intensity in the cere bral white matter. There is no intracranial hemorrhage, acute infarction, or abnormal intracranial ma ss lesion. The ventricles are normal in size. There is mild mucosal thickening in the ethmoid sinuses . The orbits are normal. The mastoid air cells are normal. IMPRESSION: 1. Moderate nonspecific cerebral white matter disease, which likely represents chronic small vessel i schemic disease. Reviewed, dictated and finalized at location A. IMPRESSION: 1. Moderate nonspecific cerebral white matter disease, which likely represents chronic small vessel ischemic disease.
== END ==
PROVIDERS: PCP Family Medicine; Visit Provider Family Medicine
DX: G43.511 Persistent migraine aura without cerebral infarction, intractable, with status migrainosus (principal); R90.82 White matter disease, unspecified
CPT/HCPCS: 70551

== ENCOUNTER 2022-12-03 01:13 | Day surgery (SDC) | payer OTHER, SELFPAY ==
[2022-11-25 12:09] VITALS: BMI 40.0
[2022-12-03 06:22] VITALS: BP 156/84; PULSE 92; RESP 18; TEMP 36.4; O2SAT 99; BMI 39.5
[2022-12-03] MEDS: LACTATED RINGERS 1,000 ML 150 ML IV CONT (06:37)
--- NOTE | 2022-12-03 07:25 | WPDANESEPPF ---
Anes - Initial Pre Proc Eval Procedure: Operation Date: 12/03/22 07:30 Proposed Procedures p Esophagogastroduodenoscopy - Festus Mcnamara MD Date/Time: 12/03/22 07:25 Surgeon: Festus Mcnamara MD Pre Op Diagnosis: eosinophilic esophagitis, GERD Patient Data Age: 67 Gender: M Height: 1.83 m Weight: 132.3 kg Last Vital Signs Temp 97.6 F 12/03/22 06:22 Pulse 92 12/03/22 06:22 Resp 18 12/03/22 06:22 BP 156/84 H 12/03/22 06:22 Pulse Ox 99 12/03/22 06:22 O2 Del Method Room Air 12/03/22 06:22 Allergies Allergy/AdvReac Type Severity Reaction Status Date / Time No Known Allergies Allergy Verified 12/03/22 06:21 Home Medications Medication Instructions Recorded Confirmed Type dupilumab 300 mg/2 mL subcutaneous 300 mg subcut WEEKLY 11/11/21 12/03/22 History syringe (Dupixent) atorvastatin 10 mg tablet 10 mg PO DAILY #90 tabs 01/25/22 12/03/22 Rx finasteride 5 mg tablet 5 mg PO DAILY #90 tabs 01/25/22 12/03/22 Rx pantoprazole 40 mg tablet,delayed 40 mg PO BID #180 tabs 01/25/22 12/03/22 Rx release (Protonix) rizatriptan 10 mg tablet (Maxalt) See Rx Instructions PO .COMPLEX 09/23/22 12/03/22 Rx #30 tabs metoprolol succinate 50 mg 50 mg PO DAILY 11/25/22 12/03/22 History tablet,extended release 24 hr nifedipine 60 mg tablet,extended 60 mg PO DAILY 12/03/22 12/03/22 History release Patient hx anesthesia problems: none Family hx anesthesia problems: none Results Review: All pre-operative results and documents have been reviewed as part of the pre-operative evaluation. [facility] Past Medical History Medical History Adenomatous colon polyp Eosinophilic esophagitis Esophageal stricture Essential (primary) hypertension GERD (gastroesophageal reflux disease) Hepatitis 1975 Hernia, diaphragmatic Hyperlipidemia, unspecified Obesity Surgical History Surgical History History of circumcision History of eye surgery History of sinus surgery Hx of excision of mass excision of 4cm thigh mass on 01/06/22. Family History Family History Other Diabetes mellitus Hypertension Social History Social History Smoking status: Never smoker Second hand tobacco smoke exposure: No Alcohol intake: current Alcohol use details: Rarely Substance use: current Substance use type: does not use Lack of Transportation: No Lack of Food: Never True Current Housing: I Have Housing Concerned About Future Housing: No Difficulty Paying Gas/Electric Bills: No Difficulty Paying for Meds: No Currently Unemployed: No Education: Master's Degree or Higher Difficulty w/ Childcare or Family Care: No Living arrangements: with family Spiritual care concerns: No Anes - Eval Final PreProcedure Day of Procedure 12/03/22 07:25 Patient weight: morbidly obese Heart: regular rate and rhythm Lungs: clear to auscultation Airway: Mallampati scale class III Neurological: alert and oriented Last oral intake: >/= 8 hours ASA classification: III Emergent: no Anesthetic plan: proceed Anesthesia type and monitoring: general GIVS and standard monitoring Results Review: All pre-operative results and documents have been reviewed as part of the pre-operative evaluation. Informed Consent: The patient's anesthetic plan and its attendant risks and benefits were discussed with the patient/family/POA. Questions were solicited and answers provided to the satisfaction of the patient/family/POA.
--- NOTE | 2022-12-03 07:28 | PM.HPGS ---
History of Present Illness History of Present Illness Consent: Risks, benefits, and alternatives have been discussed and questions answered. Patient agrees to proceed with procedure. Chief complaint: eosinophilic esophagitis, GERD Narrative: Ron Gutierrez is a 67 year old male here for another egd. He has longstanding history of reflux disease and eosinophilic esophagitis who required about more than 25 EGD during his lifetime, last EGD 2021 showed normal esophagus including biopsies, non-obstructive ring at [facility]J with small HH dilated up to 18 mm TTS balloon. Using dupixent, ppi and better, last episode of choking more than 4 months ago. Review of Systems Constitutional: Constitutional: Denies headache(s) and Denies weakness Eyes: Eyes: Denies blurry vision ENT: Reports Normal hearing present, Denies headache(s) and Denies neck pain Cardiovascular: Cardiovascular: Denies chest pain and Denies dyspnea Respiratory: Respiratory: Denies dyspnea Gastrointestinal: Gastrointestinal: Reports no additional gastrointestinal complaints Genitourinary: Genitourinary: Denies dysuria Musculoskeletal: Musculoskeletal: Denies neck pain Integumentary/Breasts: Skin/Breast: Denies dry skin Neurologic: Reports Normal hearing present, Denies headache(s) and Denies weakness Psychiatric: Psychiatric: Denies anxiety Endocrine: Endocrine: Denies change in body appearance Hematologic/Lymphatic: Hematologic/Lymphatic: Denies easy bleeding Allergic/Immunologic: Allergic/Immunologic: Denies urticaria PMFSH Past Medical History Medical History Adenomatous colon polyp Eosinophilic esophagitis Esophageal stricture Essential (primary) hypertension GERD (gastroesophageal reflux disease) Hepatitis 1975 Hernia, diaphragmatic Hyperlipidemia, unspecified Obesity Surgical History Surgical History History of circumcision History of eye surgery History of sinus surgery Hx of excision of mass excision of 4cm thigh mass on 01/06/22. Family History Family History Other Diabetes mellitus Hypertension Social History Social History Smoking status: Never smoker Second hand tobacco smoke exposure: No Alcohol intake: current Alcohol use details: Rarely Substance use: current Substance use type: does not use Lack of Transportation: No Lack of Food: Never True Current Housing: I Have Housing Concerned About Future Housing: No Difficulty Paying Gas/Electric Bills: No Difficulty Paying for Meds: No Currently Unemployed: No Education: Master's Degree or Higher Difficulty w/ Childcare or Family Care: No Living arrangements: with family Spiritual care concerns: No Meds Home Medications and Allergies Home Medications Medication Instructions Recorded Confirmed Type dupilumab 300 mg/2 mL subcutaneous 300 mg subcut WEEKLY 11/11/21 12/03/22 History syringe (Dupixent) atorvastatin 10 mg tablet 10 mg PO DAILY #90 tabs 01/25/22 12/03/22 Rx finasteride 5 mg tablet 5 mg PO DAILY #90 tabs 01/25/22 12/03/22 Rx pantoprazole 40 mg tablet,delayed 40 mg PO BID #180 tabs 01/25/22 12/03/22 Rx release (Protonix) rizatriptan 10 mg tablet (Maxalt) See Rx Instructions PO .COMPLEX 09/23/22 12/03/22 Rx #30 tabs metoprolol succinate 50 mg 50 mg PO DAILY 11/25/22 12/03/22 History tablet,extended release 24 hr nifedipine 60 mg tablet,extended 60 mg PO DAILY 12/03/22 12/03/22 History release Allergies Allergy/AdvReac Type Severity Reaction Status Date / Time No Known Allergies Allergy Verified 12/03/22 06:21 Vital Signs Vital Signs - 24 hr 12/03/22 06:22 Temperature 97.6 F Pulse Rate 92 Respiratory Rate 18 Blood Pressure 156/84 H Pulse Oximetry 99 Oxygen Deliver
[2022-12-03 07:48] VITALS: BP 148/70; PULSE 70; RESP 18; O2SAT 100
[2022-12-03 07:58] VITALS: BP 142/43; PULSE 73; RESP 18; O2SAT 100
[2022-12-03 08:08] VITALS: BP 141/83; PULSE 75; RESP 18; O2SAT 100
== END 2022-12-03 08:15 | disposition home or self-care (01) ==
PROVIDERS: PCP Family Medicine; Visit Provider Internal Medicine Gastroenterology
PROC: 0DJ08ZZ Inspection of Upper Intestinal Tract, Via Natural or Artificial Opening Endoscopic (ICD-10-PCS; CPT 43235; principal; 2022-12-03 07:30)
DX: K22.2 Esophageal obstruction (principal); K44.9 Diaphragmatic hernia without obstruction or gangrene; K31.7 Polyp of stomach and duodenum; K21.9 Gastro-esophageal reflux disease without esophagitis; E78.5 Hyperlipidemia, unspecified; I10 Essential (primary) hypertension; E66.01 Morbid (severe) obesity due to excess calories; Z68.39 Body mass index [BMI] 39.0-39.9, adult
CPT/HCPCS: 43249; 88305; C1726; J2704; J7120

== ENCOUNTER 2022-12-24 09:32 | Outpatient (CLI) | payer OTHER, SELFPAY ==
[2022-12-24 10:44] LABS: Anion Gap 7 mmol/L (8-16); Blood Urea Nitrogen 17 mg/dL (9-20); Calcium 9.2 mg/dL (8.4-10.2); Carbon Dioxide 30 mmol/L (22-30); Chloride 103 mmol/L (98-107); Estimated Glomerular Filt Rate > 60; Glucose 92 mg/dL (65-110); Potassium 4.4 mmol/L (3.4-5.0); Sodium 140 mmol/L (137-145)
== END 2022-12-24 09:33 | disposition home or self-care (01) ==
LOC: ANHLAB 09:34
PROVIDERS: PCP Family Medicine; Visit Provider Internal Medicine Cardiovascular Disease
DX: I1A.0 Resistant hypertension (principal)
CPT/HCPCS: 36415; 80048

== ENCOUNTER 2023-02-10 07:55 | Outpatient (CLI) | payer OTHER, SELFPAY ==
[2023-02-10 08:11] LABS: Basophils Absolute Auto 0.1 K/mm3 (0.0-0.1); Basophils Percent Auto 1.5 % (0.2-1.2); Eosinophils Absolute Auto 0.2 K/mm3 (0-0.3); Eosinophils Percent Auto 4.5 % (0-4.4); Immature Granulocyte Absolute 0.02 K/mm3 (0.00-0.031); Immature Granulocyte Percent A 0.4 % (0-0.5); Lymphocytes Absolute Auto 1.32 K/mm3 (0.9-3.2); Lymphocytes Percent Auto 24.6 % (18.3-44.2); Mean Corpuscular HGB Conc 33.3 g/dl (32-36); Mean Corpuscular Hemoglobin 30.2 pg (26-34); Mean Corpuscular Volume 90.7 fl (80-100); Mean Platelet Volume 10.9 fl (7.4-10.4); Monocytes Absolute Auto 0.5 K/mm3 (0.1-0.6); Monocytes Percent Auto 9.3 % (2.6-8.5); Neutrophils Absolute Auto 3.2 K/mm3 (1.3-6.7); Neutrophils Percent Auto 59.7 % (45.5-73.1); Platelet Count Result 177 k/mm3 (150-375); Red Blood Count 4.63 M/mm3 (4.6-6.20); Red Cell Distribution Width 13.7 % (11.5-14.5); White Blood Count 5.4 K/mm3 (4.5-10.0)
[2023-02-10 08:22] LABS: Alanine Aminotransferase 29 U/L (6-50); Albumin Level 3.8 g/dL (3.5-5.1); Alkaline Phosphatase 70 U/L (38-126); Anion Gap 5 mmol/L (8-16); Aspartate Amino Transferase 30 U/L (17-59); Bilirubin,Total 0.8 mg/dL (0.2-1.3); Blood Urea Nitrogen 20 mg/dL (9-20); Calcium 9.3 mg/dL (8.4-10.2); Carbon Dioxide 29 mmol/L (22-30); Chloride 106 mmol/L (98-107); Cholesterol 124 mg/dL (0-200); Estimated Glomerular Filt Rate > 60; Glucose 111 mg/dL (65-110); HDL Direct 33 mg/dL; Potassium 4.2 mmol/L (3.4-5.0); Sodium 140 mmol/L (137-145); Triglycerides 110 mg/dL (<150)
[2023-02-10 08:34] LABS: LDL Cholesterol Direct 63 mg/dL
[2023-02-10 08:51] LABS: Prostate Specific Antigen 0.8 ng/mL (< OR = 4.0)
[2023-02-10 08:57] LABS: Vitamin D 25 Hydroxy 44.9 ng/mL
[2023-02-10 10:56] LABS: Hemoglobin A1C 5.7 % (<5.7)
== END 2023-02-10 07:56 | disposition home or self-care (01) ==
LOC: ANHLAB 07:57
PROVIDERS: PCP Family Medicine; Visit Provider Nurse Practitioner Family
DX: E55.9 Vitamin D deficiency, unspecified (principal); E66.9 Obesity, unspecified; E78.5 Hyperlipidemia, unspecified; G43.911 Migraine, unspecified, intractable, with status migrainosus; G47.33 Obstructive sleep apnea (adult) (pediatric); I10 Essential (primary) hypertension; I35.1 Nonrheumatic aortic (valve) insufficiency; K20.0 Eosinophilic esophagitis; N40.0 Benign prostatic hyperplasia without lower urinary tract symptoms; Z13.0 Encounter for screening for diseases of the blood and blood-forming organs and certain disorders involving the immune mechanism; Z87.19 Personal history of other diseases of the digestive system; Z87.898 Personal history of other specified conditions; Z12.5 Encounter for screening for malignant neoplasm of prostate
CPT/HCPCS: 36415; 80053; 80061; 82306; 83036; 84153; 85025; G0103

== ENCOUNTER 2023-09-26 08:23 | Outpatient (CLI) | payer MEDICARE, SELFPAY ==
[2023-09-26 18:21] LABS: Alanine Aminotransferase 30 U/L (6-50); Alkaline Phosphatase 63 U/L (38-126); Anion Gap 9 mmol/L (4-12); Aspartate Amino Transferase 53 U/L (17-59); Bilirubin,Total 0.7 mg/dL (0.2-1.3); Blood Urea Nitrogen 19 mg/dL (9-20); Calcium 9.5 mg/dL (8.4-10.2); Carbon Dioxide 27 mmol/L (22-30); Chloride 102 mmol/L (98-107); Cholesterol 123 mg/dL (0-200); Estimated Glomerular Filt Rate > 60; Glucose 96 mg/dL (65-110); HDL Direct 38 mg/dL; Potassium 4.2 mmol/L (3.4-5.0); Sodium 138 mmol/L (137-145); Triglycerides 89 mg/dL (<150)
[2023-09-26 18:32] LABS: LDL Cholesterol Direct 61 mg/dL
== END 2023-09-26 08:24 | disposition home or self-care (01) ==
PROVIDERS: PCP Family Medicine; Visit Provider Internal Medicine
DX: R73.03 Prediabetes (principal); E78.5 Hyperlipidemia, unspecified; E66.9 Obesity, unspecified; Z87.898 Personal history of other specified conditions; I10 Essential (primary) hypertension
CPT/HCPCS: 36415; 80053; 80061; 83036; 84443

== ENCOUNTER 2024-03-30 07:59 | Outpatient (CLI) | payer MEDICARE, SELFPAY ==
--- OUTSIDE RECORDS SUMMARY | 2024-03-30 08:02 | XMS_ITS ---
Author Organization [facility] Address [address] [place] [address] Care Team Providers Care Pantograph Machine Operator Name Role Phone Geo Matos Primary Care Provider UnavailShanae Gutierrez Unavailable [phone] OmarWillie Unavailable [phone] REASON FOR VISIT SCIT - Traditional Schedule Allergy immunotherapy Medications Medication SIG (Take, Route, Frequency, Duration) Notes Start Date End Date Status NIFEDIPINE (EQV-ADALAT CC) 60 MG 1 TAB(S) ORALLY ONCE A DAY *Please review for potential replacement for e-prescription and drug interaction check* Active Dupixent 300 MG/2ML inject pen Subcutaneous every 2 weeks for 56 days Active Spironolactone 25 MG 1 tab(s) orally once a day Active DUPIXENT PRE-FILLED SYRINGE 300 mg/2 mL Inject 300 mg subcutaneously once a week for 56 days Active SPIRONOLACTONE 25 mg 1 tab(s) orally once a day Not-Taking Famotidine 40 MG 1 tab(s) orally 60 minutes prior to shots for 30 days Active ZyrTEC Allergy 10 MG 1 tab(s) orally once a day for 30 day(s) Active Auvi-Q 0.3 MG/0.3ML as directed intramuscularly once for 30 day(s) Active Montelukast Sodium 10 MG 1 tab(s) orally once a day, move to 1 hr prior to shots for 30 day(s) Active Tadalafil 5 MG 1 tab(s) orally once a day Active Metoprolol Succinate ER 25 MG 1 tab(s) orally once a day Active hydroCHLOROthiazide 12.5 MG 1 cap(s) orally once a day Active Finasteride 5 MG 1 tab(s) orally once a day Active Valsartan 160 MG 1 tab(s) orally once a day Active Atorvastatin Calcium 10 MG 1 tab(s) orally once a day Active MONTELUKAST SODIUM 10 mg 1 tab(s) orally once a day, move to 1 hr prior to shots for 30 day(s) Active SIT (TRADITIONAL) variable per schedule SC per schedule for to be determined Active AUVI -Q 0.3 mg as directed intramuscularly once for 30 day(s) Active Pantoprazole Sodium 40 MG 1 tab(s) orally once a day Active Alfuzosin HCl ER 10 MG 1 tablet immediately after the same meal Orally Once a day Active ATORVASTATIN 10 mg 1 tab(s) orally once a day Active ZYRTEC 10 mg 1 tab(s) orally once a day for 30 day(s) Active TADALAFIL 5 mg 1 tab(s) orally once a day Active FAMOTIDINE 40 mg 1 tab(s) orally 60 minutes prior to shots for 30 days Active FINASTERIDE 5 mg 1 tab(s) orally once a day Active PANTOPRAZOLE 40 mg 1 tab(s) orally once a day Active METOPROLOL 25 mg 1 tab(s) orally once a day Active HYDROCHLOROTHIAZIDE 12.5 mg 1 cap(s) orally once a day Active VALSARTAN 160 mg 1 tab(s) orally once a day Active Encounters Encounter Location Date Provider Diagnosis [facility] [address] [facility] [address] [place] [address] 03/22/2024 Willie Nelson Allergic rhinitis du e to pollen J30.1 ; Allergic rhinitis due to animal (cat) (dog) hair and dander J30.81 ; Other allergic rhinitis J30.89 and Other chronic allergic conjunctivitis H10.45 Assessments Encounter Date Diagnosis (ICD Code) Assessment Notes Treatment Notes Treatment Clinical Notes Section Notes 03/22/2024 Allergic rhinitis due to pollen (ICD-10 - J30.1) 03/22/2024 Allergic rhinitis due to animal (cat) (dog) hair and dander (ICD-10 - J30.81) 03/22/2024 Other allergic rhinitis (ICD-10 - J30.89) 03/22/2024 Other chronic allergic conjunctivitis (ICD-10 - H10.45) Plan Of Treatment Next Appt Details Follow Up: 1 Week, Reason: Provider Name:Shanae Munson , 04/19/2024 09:30:00 AM, [address] [facility], [address], [place], [address], Progress Notes * Ron GUTIERREZ ADOB:1955 (68 yo M)Acc No.[id number]:03/22/2024 SCIT-Aeroallergen Patient: Ron ARNOLD Provider: Zina Nelson MD :1955 A ge:68 Y S ex:Male Date:03/22/2024 Address:[address] [place] [address] [place], [id number] Pcp:Geo Matos Subjective: * Chief Complaints: * S CIT - Traditional Schedule Allergy immunotherapy * HPI: * Introduction: The patient is here for scheduled immunotherapy. Please see the attached specialty form regarding the specifics of the administration of these vaccines. As per our protocol, they must undergo a screening health questionnaire (medication changes, reaction(s) to last immunotherapy dose(s), current health status, ACT (if appropriate), self-injectable epinephrine on patient(?) and peak flow (if appropriate)). Also, the patient must wait in our office for 30 minutes after receiving the vaccine(s). Furthermore, every patient must have an epinephrine pen (self-injectable) with them at the time of administration--and carry if for the following 1.5 hours after they leave our office. The patient must also have taken their antihistamine the day of the injection, preferably 2 hours prior. The consent form for SCIT (subcutaneous immunotherapy) is on file. * Medical History: * Surgical History: * Hospitalization/Major Diagno stic Procedure: * Medications: T akingPANTOPRAZOLE 40 mg delayed release tablet 1 tab(s) orally once a day HYDROCHLOROTHIAZIDE 12.5 mg capsule 1 cap(s) orally once a day METOPROLOL 25 mg tablet, extended release 1 tab(s) orally once a day VALSARTAN 160 mg tablet 1 tab(s) orally once a day FINASTERIDE 5 mg tablet 1 tab(s) orally once a day ATORVASTATIN 10 mg tablet 1 tab(s) orally once a day TADALAFIL 5 mg tablet 1 tab(s) orally once a day ZYRTEC 10 mg tablet 1 tab(s) orally once a day FAMOTIDINE 40 mg tablet 1 tab(s) orally 60 minutes prior to shots MONTELUKAST SODIUM 10 mg tablet 1 tab(s) orally once a day, move to 1 hr prior to shots AUVI -Q 0.3 mg kit as directed intramuscularly once SIT (TRADITIONAL) variable see record per schedule SC per schedule Alfuzosin HCl ER 10 MG Tablet Extended Release 24 Hour 1 tablet immediately after the same meal Orally Once a day Pantoprazole Sodium 40 MG Tablet Delayed Release 1 tab(s) orally once a day hydroCHLOROthiazide 12.5 MG Capsule 1 cap(s) orally once a day Metoprolol Succinate ER 25 MG Tablet Extended Release 24 Hour 1 tab(s) orally once a day Valsartan 160 MG Tablet 1 tab(s) orally once a day Finasteride 5 MG Tablet 1 tab(s) orally once a day Atorvastatin Calcium 10 MG Tablet 1 tab(s) orally once a day Tadalafil 5 MG Tablet 1 tab(s) orally once a day ZyrTEC Allergy 10 MG Tablet 1 tab(s) orally once a day Famotidine 40 MG Tablet 1 tab(s) orally 60 minutes prior to shots Montelukast Sodium 10 MG Tablet 1 tab(s) orally once a day, move to 1 hr prior to shots Auvi-Q 0.3 MG/0.3ML Solution Auto-injector as directed intramuscularly once NIFEDIPINE (EQV-ADALAT CC) 60 MG TABLET, EXTENDED RELEASE 1 TAB(S) ORALLY ONCE A DAY , Notes to Pharmacist: *Please review for potential replacement for e- prescription and drug interaction check*Spironolactone 25 MG Tablet 1 tab(s) orally once a day Dupixent 300 MG/2ML Solution Pen-injector inject pen Subcutaneous every 2 weeks DUPIXENT PRE-FILLED SYRINGE 300 mg/2 mL solution Inject 300 mg subcutaneously once a week Taking PANTOPRAZOLE 40 mg delayed release tablet 1 tab(s) orally once a day Taking HYDROCHLOROTHIAZIDE 12.5 mg capsule 1 cap(s) orally once a day Taking METOPROLOL 25 mg tablet, extended release 1 tab(s) orally once a day Taking VALSARTAN 160 mg tablet 1 tab(s) orally once a day Taking FINASTERIDE 5 mg tablet 1 tab(s) orally once a day Taking ATORVASTATIN 10 mg tablet 1 tab(s) orally once a day Taking TADALAFIL 5 mg tablet 1 tab(s) orally once a day Taking ZYRTEC 10 mg tablet 1 tab(s) orally once a day Taking FAMOTIDINE 40 mg tablet 1 tab(s) orally 60 minutes prior to shots Taking MONTELUKAST SODIUM 10 mg tablet 1 tab(s) orally once a day, move to 1 hr prior to shots Taking AUVI -Q 0.3 mg kit as directed intramuscularly once Taking SIT (TRADITIONAL) variable see record per schedule SC per schedule Taking Alfuzosin HCl ER 10 MG Tablet Extended Release 24 Hour 1 tablet immediately after the same meal Orally Once a day Taking Pantoprazole Sodium 40 MG Tablet Delayed Release 1 tab(s) orally once a day Taking hydroCHLOROthiazide 12.5 MG Capsule 1 cap(s) orally once a day Taking Metoprolol Succinate ER 25 MG Tablet Extended Release 24 Hour 1 tab(s) orally once a day Taking Valsartan 160 MG Tablet 1 tab(s) orally once a day Taking Finasteride 5 MG Tablet 1 tab(s) orally once a day Taking Atorvastatin Calcium 10 MG Tablet 1 tab(s) orally once a day Taking Tadalafil 5 MG Tablet 1 tab(s) orally once a day Taking ZyrTEC Allergy 10 MG Tablet 1 tab(s) orally once a day Taking Famotidine 40 MG Tablet 1 tab(s) orally 60 minutes prior to shots Taking Montelukast Sodium 10 MG Tablet 1 tab(s) orally once a day, move to 1 hr prior to shots Taking Auvi-Q 0.3 MG/0.3ML Solution Auto-injector as directed intramuscularly once Taking NIFEDIPINE (EQV-ADALAT CC) 60 MG TABLET, EXTENDED RELEASE 1 TAB(S) ORALLY ONCE A DAY , Notes to Pharmacist: *Please review for potential replacement for e-prescription and drug interaction check*Taking Spironolactone 25 MG Tablet 1 tab(s) orally once a day Taking Dupixent 300 MG/2ML Solution Pen-injector inject pen Subcutaneous every 2 weeks Taking DUPIXENT PRE-FILLED SYRINGE 300 mg/2 mL solution Inject 300 mg subcutaneously once a week Not-Taking/PRNSPIRONOLACTONE 25 mg tablet 1 tab(s) orally once a day Not-Taking/PRN SPIRONOLACTONE 25 mg tablet 1 tab(s) orally once a day Objective: * Vitals: Assessment: * Assessment: 1. A llergic rhinitis due to pollen - J30.1 (Primary) 2 . A llergic rhinitis due to animal (cat) (dog) hair and dander - J30.81 3 . O ther allergic rhinitis - J30.89 4 . O ther chronic allergic conjunctivitis - H10.45 Plan: * Treatment: * Procedure Codes: 9 5117 IMMUNOTHERAPY INJECTIONS * Follow Up: 1 Week * Billing Information: * Visit Code: * Procedure Codes: 85013 IMMUNOTHERAPY INJECTIONS. * ARGER Sign off status: Completed true * Provider: Zina Nelson MD Date: 03/22/2024 Generated for Radha burrell/Eboni/Kristiitting on: 0 03/30/2024 08:02 AM RECHARGER History and Physical Notes * HPI (History of Present Illness) Category Sub-Category Detail Notes Category Not es *Introduction The patient is here for scheduled immunotherapy. Please see the attached specialty form regarding the specifics of the administration of these vaccines. As per our protocol, they must undergo a screening health questionnaire (medication changes, reaction(s) to last immunotherapy dose(s), current health status, ACT (if appropriate), self-injectable epinephrine on patient(?) and peak flow (if appropriate)). Also, the patient must wait in our office for 30 minutes after receiving the vaccine(s). Furthermore, every patient must have an epinephrine pen (self-injectable) with them at the time of administration--and carry if for the following 1.5 hours after they leave our office. The patient must also have taken their antihistamine the day of the injection, preferably 2 hours prior. The consent form for SCIT (subcutaneous immunotherapy) is on file.
--- OUTSIDE RECORDS SUMMARY | 2024-03-30 08:02 | XMS_ITS | Referral Summary ---
Author Organization [facility] [address] Address [address] [place] [address] Care Team Providers Care Sandstone Splitter Name Role Phone Geo Matos DO Primary Care Provider [phone] Allergies No known active allergies Medications tadalafiL (CIALIS) 5 mg tablet TK 1 T PO D 0 Active atorvastatin (LIPITOR) 10 mg tablet Take 1 tablet (10 mg total) by mouth daily 90 tablet 3 0 Active finasteride (PROSCAR) 5 mg tablet Take 1 tablet (5 mg total) by mouth daily 90 tablet [address] (PROTONIX) 40 mg EC tablet Take 1 tablet (40 mg total) by mouth 2 (two) times a day Active valsartan (DIOVAN) 320 mg tablet Take 1 tablet (320 mg total) by mouth nightly 90 tablet 3 2 Active Dupixent Syringe syringe Inject 2 mL (300 mg total) under the skin once a week Active metoprolol XL (TOPROL-XL) 50 mg extended release tablet TAKE 1 TABLET BY MOUTH DAILY 90 tablet 3 4 Active semaglutide (WEGOVY) 0.25 mg/0.5 mL auto-injector Inject 0.5 mL (0.25 mg total) under the skin every 7 days 2 mL 4 Active spironolactone (ALDACTONE) 25 mg tablet Take 1 tablet (25 mg total) by mouth daily 90 tablet 2 5 Active NIFEdipine (NIFEdipine XL) 30 mg 24 hr tablet Take 1 tablet (30 mg total) by mouth daily Take at bedtime 30 tablet 11 5 03/20/19 26 Active NIFEdipine (NIFEdipine XL) 30 mg 24 hr tablet Take 1 tablet (30 mg total) by mouth daily Take at bedtime 30 tablet 11 4 03/20/19 25 Discontinu ed(Reorder ) spironolactone (ALDACTONE) 25 mg tablet TAKE 1 TABLET(25 MG) BY MOUTH DAILY 90 tablet 2 4 03/20/19 25 Discontinu ed(Reorder ) Active Problems Problem Noted Date Diagnosed Date Chest pain 06/30/2013 Overview (05/20/2016): CHEST PAIN NOS Hypertension 06/30/2013 Overview (05/20/2016): HYPERTENSION NOS Social History Tobacco Use Types Packs/Day Years Used Date Smoking Tobacco: Never Smokeless Tobacco: Never Tobacco Cessation:Counseling Given: Not Answered Alcohol Use Standard Drinks/Week Comments Never 0 (1 standard drink = 0.6 oz pur e alcohol) AUDIT-C Answer Date Recorded Q1: How often do you have a drink containing alc ohol? 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 Gender Identity Not on file Sexual Orientation Not on file Last Filed Vital Signs Vital Sign Reading Time Taken Comments Blood Pressure 110/68 08/10/2023 1:01 PM CDT Pulse 76 08/10/2023 1:01 PM CDT Temperature - - Respiratory Rate 17 07/25/2019 10:0 8 AM CDT Oxygen Saturation 95% 08/10/2023 1:01 PM CDT Inhaled Oxygen Concentration - - Weight 133.9 kg (295 lb 3.2 oz) 08/10/2023 1:01 PM CDT Height 182.9 cm (6') 08/10/2023 1:01 PM CDT Body Mass Index 40.04 08/10/2023 1:01 PM CDT Plan of Treatment Not on file Insurance MEDICARE [facility] Care Teams Sandstone Splitter Relationship Specialty Start Date End Date Geo Matos DO PCP - General Internal Medicine 08/10/23
--- OUTSIDE RECORDS SUMMARY | 2024-03-30 08:02 | XMS_ITS | Clinical Summary ---
Author Organization [facility] Address [address], [facility] [address] [place] [address] Phone Care Team Providers Care Settlement Worker Name Role Phone Lazaro Ellis MD Primary Care Provider [phone] Allergies No known active allergies Medications hydroCHLOROthia zide (MICROZIDE) 12.5 MG Capsule Take 12.5 mg by mouth daily. Active finasteride (PROSCAR) 5 MG Tablet Take 5 mg by mouth daily. Active atorvastatin (LIPITOR) 10 MG Tablet Take 10 mg by mouth. Active Tadalafil 5 MG Tablet 11/05/2019 Active valsartan (DIOVAN) 160 MG Tablet Take 160 mg by mouth. 08/29/2019 Active other 10 mg by Other route. Rampril Active fluticasone (FLOVENT HFA) 220 MCG/ACT Aerosol 2 puffs and swallow twice a day 2 Inhaler 6 01/31/2020 Active pantoprazole (Protonix) 40 MG Tablet Delayed Response Take 1 Tablet by mouth 2 times daily. 90 Tablet 11/13/2020 Active Active Problems Problem Noted Date Diagnosed Date Gastroesophageal reflux disease 04/08/2016 Encounter for colonoscopy du e to history of adenomatous colonic polyps 04/08/2016 Irritable bowel syndrome 04/08/2016 Immunizations Immunization Administration Dates Next Due Zoster Vaccine Recombinant 07/23/2017,05/15/2017 Family History Medical History Relation Name Comments Lung Cancer Father Breast Cancer Mother Other-comment Son 1 EOE Other-comment Son 2 EOE Relation Name Status Comments Father Mother Son 1 Son 2 Social History Tobacco Use Types Packs/Day Years Used Date Smoking Tobacco: Never Smokeless Tobacco: Never Tobacco Cessation:Counseling Given: No Alcohol Use Standard Drinks/Week Comments No 0 (1 standard drink = 0.6 oz pur e alcohol) Sexually Active Control Partners Comments Not Currently Sex and Gender Information Value Date Recorded Sex Assigned at Not on file 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 Gender Identity Not on file Sexual Orientation Not on file Last Filed Vital Signs Vital Sign Reading Time Taken Comments Blood Pressure 118/64 11/21/2019 8:25 AM CDT Pulse 92 11/21/2019 8:25 AM CDT Temperature 36.2 C (97.2 F) 11/21/2019 8:25 AM CDT Respiratory Rate 20 11/21/2019 8:25 AM CDT Oxygen Saturation 100% 11/21/2019 8:25 AM CDT Inhaled Oxygen Concentration - - Weight 132.9 kg (293 lb) 11/21/2019 8:25 AM CDT Height 182.9 cm (6') 11/21/2019 8:25 AM CDT Body Mass Index 39.74 11/21/2019 8:25 AM CDT Plan of Treatment Health Maintenance Due Date Last Done Comments Hepatitis C Virus (HCV) Screening 1955 TdaP Immunization 1955 Cologuard 2006 Immunochemical Fecal Occult Blood 2006 Pneumococcal Immunization (5 0+ years) (1 of 1 - PCV) 2006 PSA Discussion 09/22/2011 Influenza Immunization (#1) 2023 SARS-COV-2 Immunization ( season) 2023 11/16/2020, 02/26/2020, 02/05/2020 Colonoscopy 01/23/2025 01/24/2020, 10/07/2016 Colorectal Cancer Screening 01/23/2025 Respiratory Syncytial Virus (RSV) Immunization (Adult) (1 - 1-dose 75+ series) 09/22/2031 01/24/2020, 10/07/2016 Zoster Immunization Completed 07/23/2017, 05/15/2017 Hepatitis B Immunization Aged Out No longer eligible based on patient's age to complete this topic Meningococcal Immunization (ACWY) Aged Out No longer eligible b ased on patient's age to complete this topic Rotavirus Immunization Aged Out No lo nger eligible based on patient's age to complete this topic Procedures Procedure Name Priority Date/Time Associated Diagnosis Comments COLONOSCOPY Routine 01/24/2020 from Last 3 Months or Most Recently Relevant to Health Maintenance Results * COLONOSCOPY (01/24/2020) Scotty Cortes DO PROCEDURE/MINOR SURGICAL ORDERA BLES Final Result from Last 3 Months or Most Recently Relevant to Health [place] [address] [facility] Care Teams Settlement Worker Relationship Specialty Start Date End Date Lazaro Ellis MD [address] [facility] [address] [place] [address] PCP - General Internal Medicine 01/28/16
--- OUTSIDE RECORDS SUMMARY | 2024-03-30 08:02 | XMS_ITS ---
Author Organization [facility] Address [address] [place], [place] [address] [address] Care Team Providers Care Office Director Name Role Phone Geo Matos Primary Care Provider Shanae Yap Unavailable [phone] Willie Nelson [phone] REASON FOR VISIT SCIT (Aeroallergen) Encounters Encounter Location Date Provider Diagnosis [facility] [address] [place] [address] 03/13/2024 Willie Nelson Plan Of Treatment Next Appt Details Provider Name:Shanae Munson , 04/19/2024 09:30:00 AM, [address] [facility], [address], [place], [address], Progress Notes * Ron GUTIERREZ ADOB:1955 (68 yo M)Acc No.[id number]:03/13/2024 SCIT-Aeroallergen Patient: Ron ARNOLD Provider: Zina Nelson MD :1955 A ge:68 Y S ex:Male Date:03/13/2024 Address:[address] [place] [address] [id number] Pcp:Geo Matos Subjective: * Chief Complaints: * 1 . SCIT (Aeroallergen). * Medical History: Objective: * Vitals: Assessment: Plan: * Treatment: * Billing Information: * Visit Code: * Procedure Codes: * Electronic signature of Moris Nelson MD, FAAAAI on 03/30/2024 at 08:02 AM DISCOVERY GUIDE Sign off status: Pending * Provider: Zina Nelson MD Date: 0 03/13/2024 Generated for Radha burrell/Eboni/Pierre on: 0 03/30/2024 08:02 AM DISCOVERY GUIDE
--- OUTSIDE RECORDS SUMMARY | 2024-03-30 08:02 | XMS_ITS ---
Author Organization [facility] Address [address] [place], [place] [address] [address] Care Team Providers Care Concrete Pump Operator Helper Name Role Phone Geo Matos Primary Care Provider Shanae Yap Unavailable [phone] Willie Nelson [phone] REASON FOR VISIT SCIT (Aeroallergen) Encounters Encounter Location Date Provider Diagnosis [facility] [address] [place] [address] 02/27/2024 Willie Nelson Plan Of Treatment Next Appt Details Provider Name:Shanae Munson , 04/19/2024 09:30:00 AM, [address] [facility], [address], [place], [address], Progress Notes * Ron GUTIERREZ ADOB:1955 (68 yo M)Acc No.[id number]:02/27/2024 SCIT-Aeroallergen Patient: Ron ARNOLD Provider: iZna Nelson MD :1955 A ge:68 Y S ex:Male Date:02/27/2024 Address:[address] [place] [id number] Pcp:Geo Matos Subjective: * Chief Complaints: * 1 . SCIT (Aeroallergen). * Medical History: Objective: * Vitals: Assessment: Plan: * Treatment: * Billing Information: * Visit Code: * Procedure Codes: * Electronic signature of Moris Nelson MD, FAAAAI on 03/30/2024 at 08:02 AM CORRECTIONAL FACILITY PSYCHIATRIST Sign off status: Pending * Provider: Zina Nelson MD Date: 0 02/27/2024 Generated for Radha burrell/Eboni/Pierre on: 0 03/30/2024 08:02 AM CORRECTIONAL FACILITY PSYCHIATRIST
--- OUTSIDE RECORDS SUMMARY | 2024-03-30 08:02 | XMS_ITS | Clinical Summary ---
Author Organization [facility] [address] Address [address] [place] [address] Care Team Providers Care Senior Cyber Intelligence Analyst Name Role Phone Geo Matos DO Primary Care Provider [phone] Allergies No known active allergies Medications tadalafiL [...] NOS Hypertension 06/30/2013 Overview (05/20/2016): HYPERTENSION NOS Family History Medical History Relation Name Comments Lung cancer Father Heart disease Mother Relation Name Status Comments Father Mother Sister Alive Social History Tobacco Use Types Packs/Day Years [...] on file 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 Gender Identity Not on file Sexual Orientation Not on file Obstetrics History Last Filed Vital Signs Vital Sign Reading [...] 08/10/2023 1:01 PM CDT Plan of Treatment Health Maintenance Due Date Last Done Comments Colon Cancer Screening-Colonoscopy 1955 Depression Screening 1955 Hepatitis C Screening 1955 Prostate Cancer Screening-PSA 1955 DTaP/Tdap/Td Vaccine (1 - Tdap) 09/22/1967 Hepatitis B Screening 1974 Fall Risk Assessment 07/24/2020 07/25/2019 Pneumococcal vaccine 65+ (1 of 1 - PCV) 2021 Well Visit 65+ 2021 Influenza Vaccine (#1) 2023 Zoster Vaccine Completed 07/23/2017, 05/15/2017 Insurance [address] [facility] [place] [address] Care Teams Senior Cyber Intelligence Analyst Relationship Specialty Start Date End Date Geo Matos DO PCP - General Internal Medicine 08/10/23
[2024-03-30 17:56] LABS: Alanine Aminotransferase 37 U/L (6-50); Albumin Level 3.8 g/dL (3.5-5.1); Alkaline Phosphatase 68 U/L (38-126); Anion Gap 6 mmol/L (4-12); Aspartate Amino Transferase 53 U/L (17-59); Bilirubin,Total 0.9 mg/dL (0.2-1.3); Blood Urea Nitrogen 19 mg/dL (9-20); Calcium 9.3 mg/dL (8.4-10.2); Carbon Dioxide 32 mmol/L (22-30); Chloride 102 mmol/L (98-107); Cholesterol 105 mg/dL (0-200); Estimated Glomerular Filt Rate > 60; Glucose 94 mg/dL (65-110); HDL Direct 32 mg/dL; Potassium 4.6 mmol/L (3.4-5.0); Sodium 140 mmol/L (137-145); Triglycerides 72 mg/dL (<150)
[2024-03-30 18:07] LABS: LDL Cholesterol Direct 57 mg/dL
[2024-03-30 18:21] LABS: Prostate Specific Antigen 0.6 ng/mL (< OR = 4.0)
== END 2024-03-30 08:00 | disposition home or self-care (01) ==
PROVIDERS: PCP Internal Medicine; Visit Provider Internal Medicine
DX: R73.03 Prediabetes (principal); E78.5 Hyperlipidemia, unspecified; I10 Essential (primary) hypertension; Z12.5 Encounter for screening for malignant neoplasm of prostate
CPT/HCPCS: 36415; 80053; 80061; 83036; 84153; G0103

== ENCOUNTER 2024-09-28 08:37 | Outpatient (CLI) | payer MEDICARE, SELFPAY ==
--- OUTSIDE RECORDS SUMMARY | 2024-09-28 08:41 | XMS_ITS | Encounter Summary ---
Author Organization [facility] Address [address] [place] [address] Phone Care Team Providers Care Divorce Mediator Name Role Phone Geo Matos DO Primary Care Provider [phone] Encounter Details Date Type Department Care Team (Late st Contact Info) Description 09/26/2024 Telephone [facility] Otolaryngology [address] [place] [id number] Emilia Garcia MS Social History Tobacco Use Types Packs/Day Years Used Date Smoking Tobacco: Never Smokeless Tobacco: Never Alcohol Use Standard Drinks/Week Comments Never 0 (1 standard drink = 0.6 oz pur e alcohol) AUDIT-C Answer Date Recorded Q1: How often do you have a drink containing alc ohol? 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 Pt scheduled for a new sleep study in January and will try to schedule after that or re-send referral. * Telephone Encounter - Aadms Fajardo - 09/26/2024 10:55 AM CDT Pt called to sched with dr. Cannon, no sleep study for 5 years though. LSM advised to see sleep medicine first, * Telephone Encounter - Amira Oneal - 09/26/2024 9:28 AM CDT Called x1 lvm, no mychart - referral documented in this encounter Plan of Treatment Not on file documented as of this encounter Visit Diagnoses Not on filedocumented in this encounter Care Teams Divorce Mediator Relationship Specialty Start Date End Date Geo Matos DO PCP - General Internal Medicine 08/10/23 documented as of this encounter
--- OUTSIDE RECORDS SUMMARY | 2024-09-28 08:41 | XMS_ITS | Clinical Summary ---
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 Gender Identity Not on file Sexual Orientation [...] (HCV) Screening 1955 TdaP Immunization 1955 Cologuard 2001 Immunochemical Fecal Occult Blood 2001 Pneumococcal Immunization (5 0+ years) (1 of 1 - PCV) 2006 SARS-COV-2 Immunization ( - 2023- season) 2023 11/16/2020, 02/26/2020, 02/05/2020 Influenza Immunization (#1) 2024 Colonoscopy 01/23/2025 01/24/2020, 10/07/2016 Colorectal Cancer Screening 01/23/2025 Respiratory Syncytial Virus (RSV) Immunization (Adult) (1 - 1-dose 75+ series) 09/22/2031 Zoster Immunization Completed 07/23/2017, 05/15/2017 Hepatitis B Immunization Aged Out No longer eligible based on patient's age to complete this topic Human Papillomavirus (HPV) Immunization Aged Out No longer eligible b ased [...] Health Maintenance Results * COLONOSCOPY (01/24/2020) Scotty Katrin Cortes DO PROCEDURE/MINOR SURGICAL ORDERA BLES Final Result from Last 3 Months or Most Recently Relevant to Health Maintenance Insurance [facility] Care Teams Long Filler Cigar Roller Machine Relationship Specialty Start Date End Date Lazaro Ellis MD [address] [facility] [address] [place] [address] PCP - General Internal Medicine 01/28/16
--- OUTSIDE RECORDS SUMMARY | 2024-09-28 08:41 | XMS_ITS | Clinical Summary ---
Author Organization [facility] [address] Address [address] [place] [address] Care Team Providers Care Cobbler Upper Name Role Phone Geo Matos DO Primary Care Provider [phone] Allergies No known active allergies Medications tadalafiL (CIALIS) 5 mg tablet TK 1 T PO D 07/11/19 20 Active atorvastatin (LIPITOR) 10 mg tablet Take 1 tablet (10 mg total) by mouth daily 90 tablet 3 12/26/19 20 Active finasteride (PROSCAR) 5 mg tablet Take 1 tablet (5 mg total) by mouth daily 90 tablet 3 12/26/[address] (PROTONIX) 40 mg EC tablet Take 1 tablet (40 mg total) by mouth 2 (two) times a day Active Dupixent Syringe syringe Inject 2 mL (300 mg total) under the skin once a week Active NIFEdipine (NIFEdipine XL) 30 mg 24 hr tablet Take 1 tablet (30 mg total) by mouth daily Take at bedtime 90 tablet 1 04/06/19 25 026 Active spironolactone (ALDACTONE) 25 mg tablet TAKE 1 TABLET BY MOUTH DAILY 90 tablet 09/08/19 25 Active alfuzosin ER (UROXATRAL) 10 mg 24 hr tablet 07/16/19 25 Active liraglutide, weight loss, 3 mg/0.5 mL (18 mg/3 mL) pen injector Inject under the skin Active nebivoloL (BYSTOLIC) 10 mg tablet Take 1 tablet (10 mg total) by mouth daily 90 tablet 6 09/20/19 25 026 Active valsartan (DIOVAN) 320 mg tablet Take 1 tablet (320 mg total) by mouth nightly 90 tablet 3 09/03/19 22 025 Discontinued(Justin linares Reported) semaglutide (WEGOVY) 0.25 mg/0.5 mL auto-injector Inject 0.5 mL (0.25 mg total) under the skin every 7 days 2 mL 08/10/19 24 025 Discontinued(Al ternate therapy) spironolactone (ALDACTONE) 25 mg tablet Take 1 tablet (25 mg total) by mouth daily 90 tablet 1 04/06/19 25 025 Discontinued metoprolol XL (TOPROL-XL) 50 mg extended release tablet TAKE 1 TABLET BY MOUTH DAILY 90 tablet 07/20/19 25 025 Discontinued(Al ternate therapy) Active Problems Problem Noted Date Diagnosed Date Chest pain 06/30/2013 Overview (05/20/2016): CHEST PAIN NOS Hypertension 06/30/2013 Overview (05/20/2016): HYPERTENSION NOS Encounters Date Type Department Care Team Description 09/26/2024 Telephone [facility] Otolaryngology [address] [phone] Emilia Garcia MS 09/19/2024 11:15 AM CDT Office Visit [facility] [address] [place] [address] Pawan Wolf MD Essential hypertension (Primary Dx); PVC (premature ventricular contraction); Mild aortic regurgitation; Severe obesity (BMI 35.0-39.9) with comorbidity (HCC); SAMIA on CPAP; Lipid screening 08/03/2024 Telephone [facility] [address] [place] [address] Laurel Woody MA from Last 3 Months Family History Medical History Relation Name Comments [...] on file 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 Gender Identity Not on file Sexual Orientation Not on file Obstetrics History Last Filed Vital Signs Vital Sign Reading Time Taken Comments Blood Pressure 108/74 09/19/2024 11:28 AM CDT Pulse 92 09/19/2024 11:28 AM CDT Temperature - - Respiratory Rate 17 07/25/2019 10:08 AM CDT Oxygen Saturation 97% 09/19/2024 11:28 AM CDT Inhaled Oxygen Concentration - - Weight 130.2 kg (287 lb) 09/19/2024 11:28 AM CDT Height 182.9 cm (6') 09/19/2024 11:28 AM CDT Body Mass Index 38.92 09/19/2024 11:28 AM CDT Plan of Treatment Health Maintenance Due Date Last Done Comments Colon Cancer Screening-Colonoscopy 1955 Depression Screening 1955 Hepatitis C Screening 1955 Prostate Cancer Screening-PSA 1955 DTaP/Tdap/Td Vaccine (1 - Tdap) 09/22/1967 Hepatitis B Screening 1974 Pneumococcal vaccine 65+ (1 of 1 - PCV) 2006 Fall Risk Assessment 07/24/2020 07/25/2019 Well Visit 65+ 2021 Covid-19 Vaccine ( season) 2023 11/16/2020, 02/26/2020, 02/05/2020 Influenza Vaccine (#1) 2024 Zoster Vaccine Completed 07/23/2017, 05/15/2017 Procedures Procedure Name Priority Date/Time Associated Diagnosis Comments POCT LIPID PANEL Routine 09/19/2024 11:3 2 AM CDT Lipid screening from Last 3 Months Results * (ABNORMAL) POCT lipid panel (09/19/2024 11:32 AM CDT) Cholesterol, POC 118 <200 MG/DL HDL, POC 34(A) >=40 mg/dL Triglycerides, POC 98 <=149 mg/dL LDL Cholesterol POC 65 <=129 mg/dL Chol/HDL Ratio, POC 1.9 NONE Non-HDL Cholesterol, POC 84 NONE mg/dL Cholesterol Total, POC 118 30 - 199 mg/dL Capillary blood 09/19/2024 1 1:32 AM CDT Pawan Wolf MD POINT OF CARE TEST ORDERABLES Fi nal Result from Last [address] [facility] [address] Care Teams Cobbler Upper Relationship Specialty Start Date End Date Geo Matos DO PCP - General Internal Medicine 08/10/23
--- OUTSIDE RECORDS SUMMARY | 2024-09-28 08:41 | XMS_ITS | Patient Health Record ---
Author Organization [email or web address] ([address]) Address [address] [facility] [address] [place] [address] Care Team Providers Care Christian Education Director Name Role Phone Geo Matos Primary Care Provider Shanae Yap Unavailable [phone] Willie Nelson Unavailable [phone] Allergies No Known Allergies Results Component Value Reference Range Notes LEUKOTRIENE E4, 24 HOUR, URI NE Reviewed date:05/19/2024 02:45:14 PM Interpretation:Normal Performing Lab:MYM, [facility], [address], [place], [address] Kaushik Ayers M.D. Ph.D. Notes/Report: URINE VOLUME: 850/24 NON-FASTING; NON-FASTING LEUKOTRIENE E4, 24 HR, U 44 <=104 pg/mg Cr ADDITIONAL INFORMATION - This test was developed and its performance characteristics determined by [facility] in a manner consistent with CLIA requirements. This test has not been cleared or approved by the U.S. Food and Drug Administration. CREATININE, 24 HOUR, U 2083 930 - 2955 mg/24 h COLLECTION DURATION 24 URINE VOLUME 850 CREATININE CONC, 24 HR, U 245 TRYPTASE Reviewed date:05/15/2024 03:17:40 PM Interpretation:Normal Performing Lab:DEAN, [facility], [address], [place], [address] Willie Bonds M.D.,PhD Notes/Report: URINE VOLUME: 850/24 NON-FASTING; NON-FASTING; NON-FASTING TRYPTASE 7.5 <11.0 mcg/L The Tryptase test, fluorescent enzyme immunoassay (FEIA), measures both the Alpha and Beta forms of Tryptase. Measuring both forms of Tryptase increases sensitivity for the diagnosis of mastocytosis, and mast cell degranulation as a cause of anaphylaxis. N METHYLHISTAMINE, 24 HOUR, URINE Reviewed date:05/19/2024 02:45:24 PM Interpretation:Normal Performing Lab:EO, [facility], [address] [place] [address], [address] Kaushik Ayers M.D. Ph.D., Director - [address] [place] [address] [facility] Notes/Report: NON-FASTING; NON-FASTING URINE VOLUME: 850/24 N METHYLHISTAMINE, 24HR,U 118 30-200 mcg/g Cr ADDITIONAL INFORMATION - This test was developed and its performance characteristics determined by [facility] in a manner consistent with CLIA requirements. This test has not been cleared or approved by the U.S. Food and Drug Administration. CREATININE, 24 HOUR, U 2057 930 - 2955 mg/24 h COLLECTION DURATION (h) 24 URINE VOLUME (mL) 850 CREATININE CONCENTRATION 24 HR, U 242 HISTAMINE, 24 HOUR URINE Reviewed date:05/15/2024 03:17:31 PM Interpretation:Normal Performing Lab:EZ, [facility],, [address] [place], [address] Evelia Allison MD,PhD,KJ Notes/Report: NON-FASTING; NON-FASTING; NON-FASTING URINE VOLUME: 850/24 TOTAL VOLUME 850 HISTAMINE, 24 HR URINE 0.038 0.006-0.131 mg/24 h This test was performed using a kit that has not been cleared or approved by the FDA. The analytical performance characteristics of this test have been determined by [facility]. This test should not be used for diagnosis without confirmation by other medically established means. 5-HIAA, 24-HOUR URINE Reviewed date:05/16/2024 11:05:24 AM Interpretation:Normal Performing Lab:[facility],, [address] [place], [address] Evelia Allison MD,PhD,KJ Notes/Report: URINE VOLUME: 850/24 NON-FASTING; NON-FASTING; NON-FASTING; NON-FASTING TOTAL VOLUME 850 5-HIAA, URINE 4.0 < OR = 6.0 mg/24 h This test was developed and its analytical performance characteristics have been determined by [facility]. It has not been cleared or approved by the FDA. This assay has been validated pursuant to the CLIA regulations and is used for clinical purposes. CREATININE, URINE 1.84 0.50-2.15 g/24 h HOMOVANILLIC ACID, 24-HR URI NE Reviewed date:05/16/2024 11:05:56 AM Interpretation:Normal Performing Lab:[facility],, [address] [place], [address] Evelia Allison MD,PhD,KJ Notes/Report: NON-FASTING; NON-FASTING; NON-FASTING; NON-FASTING URINE VOLUME: 850/24 TOTAL VOLUME 850 HOMOVANILLIC ACID, 24 HOUR URINE 4.7 1.6-7.5 mg/24 h This test was developed and its analytical performance characteristics have been determined by [facility]. It has not been cleared or approved by the FDA. This assay has been validated pursuant to the CLIA regulations and is used for clinical purposes. CREATININE, 24 HOUR URINE 1.85 0.50-2.15 g/24 h VMA, 24-HOUR URINE Reviewed date:05/19/2024 02:45:38 PM Interpretation:Abnormal Performing Lab:[email or web address],, [address] [place], [address] Evelia Allison MD,PhD,KJ Notes/Report: NON-FASTING; NON-FASTING; NON-FASTING; NON-FASTING URINE VOLUME: 850/24 TOTAL VOLUME 850 VMA, 24 HR URINE 6.2 6 OR LESS mg/24 h This test was developed and its analytical performance characteristics have been determined by [facility]. It has not been cleared or approved by the FDA. This assay has been validated pursuant to the CLIA regulations and is used for clinical purposes. CREATININE, URINE 1.84 0.50-2.15 g/24 h METANEPHRINES, FRACT, FREE, LC/MS/MS, PLASMA Reviewed date:05/15/2024 03:17:54 PM Interpretation:Normal Performing Lab:DEAN, [facility], [address], [place], [address] Willie Bonds M.D.,PhD Notes/Report: NON-FASTING; NON-FASTING; NON-FASTING URINE VOLUME: 850/24 METANEPHRINE, FREE <25 <=57 pg/mL This test was developed and its analytical performance characteristics have been determined by [facility] [place]. It has not been cleared or approved by the U.S. Food and Drug Administration. This assay has been validated pursuant to the CLIA regulations and is used for clinical purposes. NORMETANEPHRINE, FREE 92 <=148 pg/mL This test was developed and its analytical performance characteristics have been determined by [facility] [place]. It has not been cleared or approved by the U.S. Food and Drug Administration. This assay has been validated pursuant to the CLIA regulations and is used for clinical purposes. TOTAL, FREE (MN+NMN) 92 <=205 pg/mL For additional information, please refer to http://[email or web address].Vizsafe/faq/MetFractFree (This link is being provided for informational/educatio informational/educational purposes only.) Elevations >4-fold upper reference range: strongly suggestive of a pheochromocytoma(1). Elevations >1- 4-fold upper reference range: significant but not diagnostic, may be due to medications or stress. Suggest running 24 hr urine fractionated metanephrines and/or serum Chromagranin A for confirmation. Reference: (1)Huber Uriarte et al, Plasma Chromogranin A or Urine Fractionated Metanephrines Follow-Up Testing Improves the Diagnostic Accuracy of Plasma Fractionated Metanephrines for Pheochromocytoma. The Journal of Clinical Endocrinology # Metabolism 93(1), 91-95, 2008. This test was developed and its analytical performance characteristics have been determined by [facility] [place], [place]. It has not been cleared or approved by the U.S. Food and Drug Administration. This assay has been validated pursuant to the CLIA regulations and is used for clinical purposes. METANEPHRINES, FRACT. LC/MS/ MS, 24 HR URINE Reviewed date:05/16/2024 11:06:08 AM Interpretation:Normal Performing Lab:DEAN, [facility], [address], [place], [address] Willie Bonds M.D.,PhD Notes/Report: NON-FASTING; NON-FASTING; NON-FASTING; NON-FASTING URINE VOLUME: 850/24 TOTAL VOLUME 850 METANEPHRINE 152 90-315 mcg/24 h This test was developed and its analytical performance characteristics have been determined by [facility] [place]. It has not been cleared or approved by the U.S. Food and Drug Administration. This assay has been validated pursuant to the CLIA regulations and is used for clinical purposes. NORMETANEPHRINE 485 122-676 mcg/24 h This test was developed and its analytical performance characteristics have been determined by [facility] [place]. It has not been cleared or approved by the U.S. Food and Drug Administration. This assay has been validated pursuant to the CLIA regulations and is used for clinical purposes. METANEPHRINES, TOTAL 637 224-832 mcg/24 h A four fold elevation of urinary normetanephrines is extremely likely to be due to a tumor, while a four fold elevation of urinary metanephrines is highly suggestive, but not diagnostic of the tumor. Measurement of plasma Metanephrines and Chromogranin A is recommended for confirmation. Reason For Referral No Information Medications Medication SIG (Take, Route, Frequency, Duration) Notes Start Date End Date Status Montelukast Sodium 10 MG 1 tablet Orally 1 hour prior to shots; Duration: 90 days 5 Active Alfuzosin HCl ER 10 MG 1 tablet immediately after the same meal Orally Once a day Active DUPIXENT PRE-FILLED SYRINGE 300 mg/2 mL Inject 300 mg subcutaneously once a week; Duration: 56 days Active Famotidine 40 MG 1 tablet Orally 1 hour prior to shots; Duration: 90 days 5 Active Metoprolol Succinate ER 25 MG 1 tab(s) orally once a day Active Valsartan 160 MG 1 tab(s) orally once a day Active Pantoprazole Sodium 40 MG 1 tab(s) orally once a day Active Dupixent 300 MG/2ML as directed Subcutaneous 1; Duration: 7 days 5 Active hydroCHLOROthiazide 12.5 MG 1 cap(s) orally once a day Not-Taking Tadalafil 5 MG 1 tab(s) orally once a day Not-Taking ZyrTEC Allergy 10 MG 1 tab(s) orally once a day; Duration: 30 day(s) Active Finasteride 5 MG 1 tab(s) orally once a day Active Atorvastatin Calcium 10 MG 1 tab(s) orally once a day Active Famotidine 40 MG 1 tab(s) orally 60 minutes prior to shots; Duration: 30 days Active Montelukast Sodium 10 MG 1 tab(s) orally once a day, move to 1 hr prior to shots; Duration: 30 day(s) Active Auvi-Q 0.3 MG/0.3ML as directed intramuscularly once; Duration: 30 day(s) Active HYDROCHLOROTHIAZIDE 12.5 mg 1 cap(s) orally once a day Active Dupixent 300 MG/2ML inject pen Subcutaneous every 2 weeks; Duration: 56 days Active METOPROLOL 25 mg 1 tab(s) orally once a day Active ZYRTEC 10 mg 1 tab(s) orally once a day; Duration: 30 day(s) Not-Taking NIFEDIPINE (EQV-ADALAT CC) 60 MG 1 TAB(S) ORALLY ONCE A DAY *Please review for potential replacement for e-prescription and drug interaction check* Active PANTOPRAZOLE 40 mg 1 tab(s) orally once a day Active Spironolactone 25 MG 1 tab(s) orally once a day Active ATORVASTATIN 10 mg 1 tab(s) orally once a day Active SPIRONOLACTONE 25 mg 1 tab(s) orally once a day Not-Taking TADALAFIL 5 mg 1 tab(s) orally once a day Active Cetirizine HCl 10 MG 1 tablet Orally Once a day; Duration: 90 days 5 Active VALSARTAN 160 mg 1 tab(s) orally once a day Active FAMOTIDINE 40 mg 1 tab(s) orally 60 minutes prior to shots; Duration: 30 days Not-Taking FINASTERIDE 5 mg 1 tab(s) orally once a day Active MONTELUKAST SODIUM 10 mg 1 tab(s) orally once a day, move to 1 hr prior to shots; Duration: 30 day(s) Not-Taking AUVI -Q 0.3 mg as directed intramuscularly once; Duration: 30 day(s) Active SIT (TRADITIONAL) variable per schedule SC per schedule; Duration: to be determined Active Immunizations Vaccine Route Administration Date Status Comme nts Covid 19 (Pfizer) Unknown 02/26/2020 Administered Influenza Unknown 11/21/2019 Administered Portal Infor mation Shingrix Unknown 07/23/2017 Administered Allergy Immunotherapy Weekly Unknown 07/21/1972 Administered Portal Informati on Covid 19 (Pfizer) Unknown 02/05/2020 Administered Covid 19 (Pfizer) Unknown 11/16/2020 Administered Covid 19 (Pfizer) Unknown 02/26/2020 Administered Shingrix Unknown 05/15/2017 Administered Social History Tobacco Use: Social History Observation Description Date Details (start date - stop date) Never Smoker NA - NA Sex Assigned At : Social History Observation Description Sex Assigned At Male Tobacco Control (Standard) Question Answer Notes Tobacco use: Nonsmoker AUDIT-C (Standard) Question Answer Notes Did you have a drink containing alcohol in the p ast year? No Points 0 Interpretation Negative Problems Problem Type SNOMED Code ICD Code Onset Dates Problem Status W/U Status Risk Notes Problem Chronic migraine without aura, non-refractory (disorder) (230846914624906) Migraine without aura, not intractable, without status migrainosus (G43.009) Active confirmed Problem Refractory migraine without aura (164839025) Migraine without aura, intractable, with status migrainosus (G43.011) Active confirmed Problem Migraine with aura (1152648) Migraine with aura, not intractable, without status migrainosus (G43.109) Active confirmed Problem Chronic migraine without aura, non-intractable (611608768758319) Chronic migraine without aura, not intractable, without status migrainosus (G43.709) Active confirmed Problem Tension-type headach e (217497833) Tension-type headache, unspecified, not intractable (G44.209) Active confirmed Problem New daily persistent headache (258193277351151) New daily persistent headache (NDPH) (G44.52) Active confirmed Problem Chronic allergic conjunctivitis (29377194) Other chronic allergic conjunctivitis (H10.45) Active confirmed Problem Essential hypertensi on (86391437) Essential (primary) hypertension (I10) Active confirmed Problem Allergic rhinitis (74530581) Other allergic rhinitis (J30.89) Active confirmed Problem Flushing (85970009) Flushing (R23.2) Active con firmed Problem Adverse reaction caused by drug (disorder) (58537563) Adverse effect of unspecified drugs, medicaments and biological substances, initial encounter (T50.905A) Active confirmed Problem Adverse reaction caused by drug (25964909) Adverse effect of other drugs, medicaments and biological substances, initial encounter (T50.995A) Active confirmed Problem Allergic rhinitis caused by pollen (disorder) (35161787) Allergic rhinitis due to pollen (J30.1) Active confirmed Problem Allergic rhinitis caused by animal hair and dander (360056433244896) Allergic rhinitis due to animal (cat) (dog) hair and dander (J30.81) Active confirmed Problem Eosinophilic esophagitis (463407567) Eosinophilic esophagitis (K20.0) Active confirmed Problem Pure hypercholesterolemia (629295530) Pure hypercholesterol emia, unspecified (E78.00) Active confirmed Problem Benign prostatic hypertrophy without outflow obstruction (012995729) Benign prostatic hyperplasia without lower urinary tract symptoms (N40.0) Active confirmed Vital Signs Respiratory Rate 18 /min 04/19/2024 Blood pressure diastolic 78 mm Hg 04/19/2024 Oximetry 97 % 04/19/2024 Height 72 in 04/19/2024 Blood pressure systolic 132 mm Hg 04/19/2024 Weight 304.8 lbs 04/19/2024 BMI 41.33 kg/m2 04/19/2024 Encounters Encounter Location Date Provider Diagnosis [facility] [address] [place] [address] 05/17/2024 Willie Nelson Allergic rhinitis du e to pollen J30.1 ; Allergic rhinitis due to animal (cat) (dog) hair and dander J30.81 ; Other allergic rhinitis J30.89 and Other chronic allergic conjunctivitis H10.45 [facility] [address] [place] [phone] 03/22/2024 Willie Nelson Allergic rhinitis du e to pollen J30.1 ; Allergic rhinitis due to animal (cat) (dog) hair and dander J30.81 ; Other allergic rhinitis J30.89 and Other chronic allergic conjunctivitis H10.45 [facility] [address] [place] [phone] 02/23/2024 Willie Nelson Allergic rhinitis du e to pollen J30.1 ; Allergic rhinitis due to animal (cat) (dog) hair and dander J30.81 ; Other allergic rhinitis J30.89 and Other chronic allergic conjunctivitis H10.45 [facility] [address] [place] [phone] 02/06/2024 Willie Nelson Allergic rhinitis du e to pollen J30.1 ; Allergic rhinitis due to animal (cat) (dog) hair and dander J30.81 ; Other allergic rhinitis J30.89 and Other chronic allergic conjunctivitis H10.45 [facility] [address] [place] [address] 02/02/2024 Willie Nelson Allergic rhinitis du e to pollen J30.1 ; Allergic rhinitis due to animal (cat) (dog) hair and dander J30.81 ; Other allergic rhinitis J30.89 and Other chronic allergic conjunctivitis H10.45 [facility] [address] [place] [phone] 01/26/2024 Willie Nelson Allergic rhinitis du e to pollen J30.1 ; Allergic rhinitis due to animal (cat) (dog) hair and dander J30.81 ; Other allergic rhinitis J30.89 and Other chronic allergic conjunctivitis H10.45 [facility] [address] [place] [phone] 12/29/2023 Willie Omar Allergic rhinitis du e to pollen J30.1 ; Allergic rhinitis due to animal (cat) (dog) hair and dander J30.81 ; Other allergic rhinitis J30.89 and Other chronic allergic conjunctivitis H10.45 [facility] [address] [place] [phone] 10/26/2023 Willie Nelson Allergic rhinitis du e to pollen J30.1 ; Allergic rhinitis due to animal (cat) (dog) hair and dander J30.81 ; Other allergic rhinitis J30.89 and Other chronic allergic conjunctivitis H10.45 [facility] [address] [place] [phone] 09/06/2024 Willie Nelson Allergic rhinitis du e to pollen J30.1 ; Allergic rhinitis due to animal (cat) (dog) hair and dander J30.81 ; Other allergic rhinitis J30.89 and Other chronic allergic conjunctivitis H10.45 [facility] [address] [place] [phone] 08/09/2024 Willie Nelson Allergic rhinitis du e to pollen J30.1 ; Allergic rhinitis due to animal (cat) (dog) hair and dander J30.81 ; Other allergic rhinitis J30.89 and Other chronic allergic conjunctivitis H10.45 [facility] [address] [place] [phone] 07/12/2024 Willie Nelson Allergic rhinitis du e to pollen J30.1 ; Allergic rhinitis due to animal (cat) (dog) hair and dander J30.81 ; Other allergic rhinitis J30.89 and Other chronic allergic conjunctivitis H10.45 [facility] [address] [place] [phone] 04/19/2024 Shanae Munson Eosinophilic esophag itis K20.0 ; Flushing R23.2 ; Allergic rhinitis due to pollen J30.1 ; Allergic rhinitis due to animal (cat) (dog) hair and dander J30.81 ; Other allergic rhinitis J30.89 ; Other chronic allergic conjunctivitis H10.45 ; Essential (primary) hypertension I10 and Migraine without aura, intractable, with status migrainosus G43.011 [facility] [address] [place] [phone] 12/01/2023 Shanae Munson Eosinophilic esophag itis K20.0 ; Flushing R23.2 ; Allergic rhinitis due to pollen J30.1 ; Allergic rhinitis due to animal (cat) (dog) hair and dander J30.81 ; Other allergic rhinitis J30.89 ; Other chronic allergic conjunctivitis H10.45 ; Essential (primary) hypertension I10 and Migraine without aura, intractable, with status migrainosus G43.011 [facility] [address] [place] [address] 06/19/2024 Willie Omar Allergic rhinitis du e to pollen J30.1 ; Allergic rhinitis due to animal (cat) (dog) hair and dander J30.81 ; Other allergic rhinitis J30.89 and Other chronic allergic conjunctivitis H10.45 [facility] [address] [place] [address] 07/23/2024 Shanae Munson [facility] [address] [place] [address] 12/01/2023 Shanae Munson Assessments Encounter Date Diagnosis (ICD Code) Assessment Notes Treatment Notes Treatment Clinical Notes Section Notes 12/29/2023 Allergic rhinitis due to pollen (ICD-10 - J30.1) 02/02/2024 Allergic rhinitis due to pollen (ICD-10 - J30.1) 02/06/2024 Allergic rhinitis due to pollen (ICD-10 - J30.1) 06/19/2024 Allergic rhinitis due to pollen (ICD-10 - J30.1) 08/09/2024 Allergic rhinitis due to pollen (ICD-10 - J30.1) 09/06/2024 Allergic rhinitis due to pollen (ICD-10 - J30.1) 07/12/2024 Allergic rhinitis due to pollen (ICD-10 - J30.1) 05/17/2024 Allergic rhinitis due to pollen (ICD-10 - J30.1) 04/19/2024 Flushing (ICD-10 - R23.2) As above, facial flushing noted with every Dupixent injection, typically hrs to days later but still occurring -wants to continue despite this SE -lately feels this is due to side effects of his BP meds over Dupixent. Speak to doctor. He recently decreased dosing due dizziness/low BP. They are also spacing meds out. -Will check labs and urine studies 04/19/2024 Eosinophilic esophagitis (ICD-10 - K20.0) Recurrent food sticking and GERD symptoms x 30 years with recurrent dilations. Biopsy from Dr. Cortes obtained showed a reduction of eosinophils from 60 hpf to 15 hpf with change of PPI from Prilosec to Pantoprazole in 05/2020. Continues to have symptoms and dilations every 6-10 months. Started Dupixent for EoE in 10/2021. Last scope in11/2022. Admits to no interval food sticking and dysphagia. He is very pleased with his progress. -At initial consultation I discussed the role of aeroallergens, utility of swallowed steroids/PPI, and food elimination diets. His food testing was positive to a few foods. However, ImmunoCaps were undectable. We mutually agreed to start with immunotherapy and consider swallowed steroids as he likely is PPI responsive. Understands that milk is the most commonly implicated food. Also discussed empirical 2-, 4-, and 6-food elimination diets. These have not been needed -He did not tolerate MDI if swallowed steroids are considered recommend a slurry of Budesnoide. This also has not been needed -Ron continues weekly dosing of Dupixent. He is doing very well. -No issues with the dosing except he is noting facial flushing, self-limited, several hrs and occasionally days after his weekly dosing. No other cutaneous, respiratory, or GI symptoms. He would like to continue the drug and will take pictures of the flushing. This seems to have improved. -Dupixent log reviewed. Continue weekly dosing and reporting adverse reaction -Return in 6 months for E&M. AIE updated 03/22/2024 Allergic rhinitis due to pollen (ICD-10 - J30.1) 02/23/2024 Allergic rhinitis due to pollen (ICD-10 - J30.1) 01/26/2024 Allergic rhinitis due to pollen (ICD-10 - J30.1) 12/01/2023 Flushing (ICD-10 - R23.2) As above, facial flushing noted with every Dupixent injection, typically hrs to days later but still occurring -wants to continue despite this SE -lately feels this is due to side effects of his BP meds over Dupixent. Speak to doctor. He recently decreased dosing due dizziness/low BP 10/26/2023 Allergic rhinitis due to pollen (ICD-10 - J30.1) 12/01/2023 Eosinophilic esophagitis (ICD-10 - K20.0) Recurrent food sticking and GERD symptoms x 30 years with recurrent dilations. Biopsy from Dr. Cortes obtained showed a reduction of eosinophils from 60 hpf to 15 hpf with change of PPI from Prilosec to Pantoprazole in 05/2020. Continues to have symptoms and dilations every 6-10 months. Started Dupixent for EoE in 10/2021. Last scope in11/2022. Admits to significantly less food sticking and dysphagia. -At initial consultation I discussed the role of aeroallergens, utility of swallowed steroids/PPI, and food elimination diets. His food testing was positive to a few foods. However, ImmunoCaps were undectable. We mutually agreed to start with immunotherapy and consider swallowed steroids as he likely is PPI responsive. Understands that milk is the most commonly implicated food. Also discussed empirical 2-, 4-, and 6-food elimination diets. I will request his last scope to see if additional food elimination is needed. -He did not tolerate MDI if swallowed steroids are considered recommend a slurry of Budesnoide. -Ron opted to start Dupixent after our prior discussion. He is doing very well. -No issues with the dosing except he is noting facial flushing, self-limited, several hrs and occasionally days after his weekly dosing. No other cutaneous, respiratory, or GI symptoms. He would like to continue the drug and will take pictures of the flushing. This seems to have improved. -Dupixent log reviewed. Continue weekly dosing and reporting adverse reaction -Return in 3-4 months for E&M. AIE updated 10/26/2023 Allergic rhinitis due to animal (cat) (dog) hair and dander (ICD-10 - J30.81) 12/01/2023 Allergic rhinitis due to pollen (ICD-10 - J30.1) Ron clearly suffers from atopic disease based upon our prior skin testing. Accordingly, we have introduced a new, aggressive medication regimen, discussed nasal washes and allergy-specific avoidance measures. He has not had any recent issues with dosing. He has doing wonderful this Spring. Continue triple pre-medication. Increase dosing in peak seasons PRN -Seen in March for urgent visit for facial flushing, dizziness and nausea 30 minutes after SCIT. Treated with additional antihistamines and prednisone. Dosing reduced and is back up feeling well 01/26/2024 Allergic rhinitis due to animal (cat) (dog) hair and dander (ICD-10 - J30.81) 02/23/2024 Allergic rhinitis due to animal (cat) (dog) hair and dander (ICD-10 - J30.81) 03/22/2024 Allergic rhinitis due to animal (cat) (dog) hair and dander (ICD-10 - J30.81) 04/19/2024 Allergic rhinitis due to pollen (ICD-10 - J30.1) Ron clearly suffers from atopic disease based upon our prior skin testing. Accordingly, we have introduced a new, aggressive medication regimen, discussed nasal washes and allergy-specific avoidance measures. He has not had any recent issues with dosing. He has doing wonderful this Spring. Continue triple pre-medication. Increase dosing in peak seasons PRN -Seen in March 2023 for urgent visit for facial flushing, dizziness and nausea 30 minutes after SCIT. Treated with additional antihistamines and prednisone. Dosing reduced and is back up feeling well 05/17/2024 Allergic rhinitis due to animal (cat) (dog) hair and dander (ICD-10 - J30.81) 07/12/2024 Allergic rhinitis due to animal (cat) (dog) hair and dander (ICD-10 - J30.81) 09/06/2024 Allergic rhinitis due to animal (cat) (dog) hair and dander (ICD-10 - J30.81) 08/09/2024 Allergic rhinitis due to animal (cat) (dog) hair and dander (ICD-10 - J30.81) 06/19/2024 Allergic rhinitis due to animal (cat) (dog) hair and dander (ICD-10 - J30.81) 02/06/2024 Allergic rhinitis due to animal (cat) (dog) hair and dander (ICD-10 - J30.81) 02/02/2024 Allergic rhinitis due to animal (cat) (dog) hair and dander (ICD-10 - J30.81) 12/29/2023 Allergic rhinitis due to animal (cat) (dog) hair and dander (ICD-10 - J30.81) 12/29/2023 Other allergic rhinitis (ICD-10 - J30.89) 02/02/2024 Other allergic rhinitis (ICD-10 - J30.89) 02/06/2024 Other allergic rhinitis (ICD-10 - J30.89) 06/19/2024 Other allergic rhinitis (ICD-10 - J30.89) 08/09/2024 Other allergic rhinitis (ICD-10 - J30.89) 09/06/2024 Other allergic rhinitis (ICD-10 - J30.89) 07/12/2024 Other allergic rhinitis (ICD-10 - J30.89) 05/17/2024 Other allergic rhinitis (ICD-10 - J30.89) 04/19/2024 Allergic rhinitis due to animal (cat) (dog) hair and dander (ICD-10 - J30.81) Follow allergen avoidance, meds and continue SCIT as an adjunctive treatment to current regimen 03/22/2024 Other allergic rhinitis (ICD-10 - J30.89) 02/23/2024 Other allergic rhinitis (ICD-10 - J30.89) 01/26/2024 Other allergic rhinitis (ICD-10 - J30.89) 12/01/2023 Allergic rhinitis due to animal (cat) (dog) hair and dander (ICD-10 - J30.81) Follow allergen avoidance, meds and continue SCIT as an adjunctive treatment to current regimen 10/26/2023 Other allergic rhinitis (ICD-10 - J30.89) 12/01/2023 Other allergic rhinitis (ICD-10 - J30.89) Follow allergen avoidance, meds and continue SCIT as an adjunctive treatment to current regimen 10/26/2023 Other chronic allergic conjunctivitis (ICD-10 - H10.45) 01/26/2024 Other chronic allergic conjunctivitis (ICD-10 - H10.45) 02/23/2024 Other chronic allergic conjunctivitis (ICD-10 - H10.45) 03/22/2024 Other chronic allergic conjunctivitis (ICD-10 - H10.45) 04/19/2024 Other allergic rhinitis (ICD-10 - J30.89) Follow allergen avoidance, meds and continue SCIT as an adjunctive treatment to current regimen 05/17/2024 Other chronic allergic conjunctivitis (ICD-10 - H10.45) 07/12/2024 Other chronic allergic conjunctivitis (ICD-10 - H10.45) 12/29/2023 Other chronic allergic conjunctivitis (ICD-10 - H10.45) 09/06/2024 Other chronic allergic conjunctivitis (ICD-10 - H10.45) 08/09/2024 Other chronic allergic conjunctivitis (ICD-10 - H10.45) 06/19/2024 Other chronic allergic conjunctivitis (ICD-10 - H10.45) 02/06/2024 Other chronic allergic conjunctivitis (ICD-10 - H10.45) 02/02/2024 Other chronic allergic conjunctivitis (ICD-10 - H10.45) 04/19/2024 Other chronic allergic conjunctivitis (ICD-10 - H10.45) Given ocular signs and symptoms I encouraged allergy avoidance measures and meds as above. If symptoms persist, consider adding additional medications including intraocular antihistamine/mast cell stabilizer, PRN and continue SCIT as an adjunctive measure 12/01/2023 Other chronic allergic conjunctivitis (ICD-10 - H10.45) Given ocular signs and symptoms I encouraged allergy avoidance measures and meds as above. If symptoms persist, consider adding additional medications including intraocular antihistamine/mast cell stabilizer, PRN and continue SCIT as an adjunctive measure 12/01/2023 Essential (primary) hypertension (ICD-10 - I10) We discussed the difficulty in treating systemic reactions in patients taking beta blockers. He was instructed to hold the beta butch the morning of immunotherapy and take the medication 2 hours after leaving the office 04/19/2024 Essential (primary) hypertension (ICD-10 - I10) We discussed the difficulty in treating systemic reactions in patients taking beta blockers. He was instructed to hold the beta butch the morning of immunotherapy and take the medication 2 hours after leaving the office 04/19/2024 Migraine without aura, intractable, with status migrainosus (ICD-10 - G43.011) Seen by Dr. Villalpando, thought to be related to prior COVID vaccine -doing better 12/01/2023 Migraine without aura, intractable, with status migrainosus (ICD-10 - G43.011) Seen by Dr. Villalpando, thought to be related to recent COVID vaccine -doing better Plan Of Treatment Pending Test Test Name Order Date EGG WHITE (F1) IGE 08/07/2020 MILK (F2) IGE 08/07/2020 WHEAT (F4) IGE 08/07/2020 MAIZE/CORN (F8) IGE 08/07/2020 PEANUT (F13) IGE 08/07/2020 SOYBEAN (F14) IGE 08/07/2020 BEEF (F27) IGE 08/07/2020 CHICKEN MEAT (F83) IGE 08/07/2020 IMMUNOGLOBULIN E 08/07/2020 LEUKOTRIENE E4, URINE 04/19/2024 Next Appt Details Provider Name:Willie Nelson , 10/04/2024 10:30:00 AM, [address] [facility], [address], [address], Provider Name:Shanae Munson , 11/01/2024 10:30:00 AM, [address] [facility], [address], [place], [address], Insurance Providers Payer Name Payer Address Payer Phone Subscriber Number Group Number Insured Name Patient Relationship to Insured Coverage Start Date Coverage End Date [employer] (Medicare) Attention Claims [address] [place] [address] [id number] Ron Gutierrez Self - patient is the insured 4 [facility] [address] [place] [address] [id number] Ron Gutierrez Self - patient is the insured Medical (General) History Medical History History ICD Code Essential (primary) hypertension I10 Pure hypercholesterolemia, unspecified E 78.00 Benign prostatic hyperplasia without low er urinary tract symptoms N40.0 Allergic rhinitis due to pollen J30.1 Allergic rhinitis due to animal (cat) (d og) hair and dander J30.81 Other allergic rhinitis J30.89 Other chronic allergic conjunctivitis H1 0.45 Eosinophilic esophagitis K20.0 Migraine Surgical History Surgery Date(Month/Year) deviated septum surgery 07/18/1974 deviated septum surgery 07/20/1983 Hospitalization History Reason Date(Month/Year) GI Bleed 02/26/2009
[2024-09-28 12:55] LABS: Hematocrit 43.5 % (42.0-52.0); Hemoglobin 14.4 g/dL (14.0-18.0); Immature Granulocyte Percent A 0.2 % (0-0.5); Lymphocytes Absolute Auto 1.40 K/mm3 (0.9-3.2); Mean Corpuscular HGB Conc 33.1 g/dl (32-36); Mean Corpuscular Hemoglobin 30.4 pg (26-34); Mean Corpuscular Volume 91.8 fl (80-100); Nucleated Red Blood Cells Absolute Auto 0.000 K/mm3 (0.0-0.012); Nucleated Red Blood Cells Perc 0.0 % (0.0-0.2); Platelet Count Result 169 k/mm3 (150-375); Red Blood Count 4.74 M/mm3 (4.6-6.20); White Blood Count 6.1 K/mm3 (4.5-10.0)
[2024-09-28 13:23] LABS: Alanine Aminotransferase 33 U/L (6-50); Albumin Level 3.9 g/dL (3.5-5.1); Alkaline Phosphatase 64 U/L (38-126); Anion Gap 5 mmol/L (4-12); Aspartate Amino Transferase 54 U/L (17-59); Bilirubin,Total 1.0 mg/dL (0.2-1.3); Blood Urea Nitrogen 22 mg/dL (9-20); Calcium 9.5 mg/dL (8.4-10.2); Carbon Dioxide 29 mmol/L (22-30); Chloride 105 mmol/L (98-107); Cholesterol 114 mg/dL (0-200); Estimated Glomerular Filt Rate > 60; Glucose 86 mg/dL (65-110); HDL Direct 32 mg/dL; Potassium 4.6 mmol/L (3.4-5.0); Sodium 139 mmol/L (137-145); Total Protein 7.2 g/dL (6.3-8.2); Triglycerides 67 mg/dL (<150)
[2024-09-28 14:50] LABS: Hemoglobin A1C 5.8 % (<5.7)
== END 2024-09-28 08:38 | disposition home or self-care (01) ==
PROVIDERS: PCP Internal Medicine; Visit Provider Internal Medicine
DX: R73.03 Prediabetes (principal); E55.9 Vitamin D deficiency, unspecified; I10 Essential (primary) hypertension; E78.5 Hyperlipidemia, unspecified
CPT/HCPCS: 36415; 80053; 80061; 82306; 83036; 85025

== ENCOUNTER 2024-10-03 10:47 | Outpatient (CLI) | payer MEDICARE, SELFPAY ==
--- OUTSIDE RECORDS SUMMARY | 2024-10-03 11:23 | XMS_ITS | Patient Health Record ---
Author Organization [employer] [place] ([address]) Address [address] [facility] [address] [place] [address] Care Team Providers Care Regional Retail Sales Manager Name Role Phone Geo Matos Primary Care Provider Shanae Yap Unavailable [phone] Willie Nelson Unavailable [phone] Allergies No Known Allergies Results Component Value Reference Range Notes LEUKOTRIENE E4, 24 HOUR, URI NE Reviewed date:05/19/2024 02:45:14 PM Interpretation:Normal Performing Lab:MYM, [facility], [address] [place], [place], [address] Kaushik Ayers M.D. Ph.D. Notes/Report: URINE VOLUME: 850/24 NON-FASTING; NON-FASTING LEUKOTRIENE E4, 24 HR, U 44 <=104 pg/mg Cr ADDITIONAL INFORMATION - This test was developed and its performance characteristics determined by [facility] in a manner consistent with CLIA requirements. This test has not been cleared or approved by the U.S. Food and Drug Administration. CREATININE, 24 HOUR, U 2083 930 - 2955 mg/24 h COLLECTION DURATION 24 URINE VOLUME 850 CREATININE CONC, 24 HR, U 245 N METHYLHISTAMINE, 24 HOUR, URINE Reviewed date:05/19/2024 02:45:24 PM Interpretation:Normal Performing Lab:EO, [facility], [address] [place], [address] Kaushik Ayers M.D. Ph.D., Director - [address] [place] [address] [facility] Notes/Report: NON-FASTING; NON-FASTING URINE VOLUME: 850/24 N METHYLHISTAMINE, 24HR,U 118 30-200 mcg/g Cr ADDITIONAL INFORMATION - This test was developed and its performance characteristics determined by [facility] in a manner consistent with CLIA requirements. This test has not been cleared or approved by the U.S. Food and Drug Administration. CREATININE, 24 HOUR, U 2057 930 - 2955 mg/24 h COLLECTION DURATION (h) 24 URINE VOLUME (mL) 850 CREATININE CONCENTRATION 24 HR, U 242 HISTAMINE, 24 HOUR URINE Reviewed date:05/15/2024 03:17:31 PM Interpretation:Normal Performing Lab:[facility], [facility],, [address] [place], [address] Evelia Allison MD,PhD,KJ Notes/Report: URINE VOLUME: 850/24 NON-FASTING; NON-FASTING; NON-FASTING TOTAL VOLUME 850 HISTAMINE, 24 HR URINE 0.038 0.006-0.131 mg/24 h This test was performed using a kit that has not been cleared or approved by the FDA. The analytical performance characteristics of this test have been determined by [facility]. This test should not be used for diagnosis without confirmation by other medically established means. 5-HIAA, 24-HOUR URINE Reviewed date:05/16/2024 11:05:24 AM Interpretation:Normal Performing Lab:[facility], [facility],, [address] [place], [address] Evelia Allison MD,PhD,KJ Notes/Report: URINE VOLUME: 850/24 NON-FASTING; NON-FASTING; NON-FASTING; NON-FASTING TOTAL VOLUME 850 5-HIAA, URINE 4.0 < OR = 6.0 mg/24 h This test was developed and its analytical performance characteristics have been determined by [facility]. It has not been cleared or approved by the FDA. This assay has been validated pursuant to the CLIA regulations and is used for clinical purposes. CREATININE, URINE 1.84 0.50-2.15 g/24 h HOMOVANILLIC ACID, 24-HR URI NE Reviewed date:05/16/2024 11:05:56 AM Interpretation:Normal Performing Lab:EZ, [facility],, [address] [place], [address] Evelia Allison MD,PhD,KJ Notes/Report: NON-FASTING; NON-FASTING; NON-FASTING; NON-FASTING URINE VOLUME: 850/24 TOTAL VOLUME 850 HOMOVANILLIC ACID, 24 HOUR URINE 4.7 1.6-7.5 mg/24 h This test was developed and its analytical performance characteristics have been determined by [facility]. It has not been cleared or approved by the FDA. This assay has been validated pursuant to the CLIA regulations and is used for clinical purposes. CREATININE, 24 HOUR URINE 1.85 0.50-2.15 g/24 h VMA, 24-HOUR URINE Reviewed date:05/19/2024 02:45:38 PM Interpretation:Abnormal Performing Lab:EZ, [facility],, [address] [place], [address] Evelia Allison MD,PhD,KJ Notes/Report: NON-FASTING; NON-FASTING; NON-FASTING; NON-FASTING URINE VOLUME: 850/24 TOTAL VOLUME 850 VMA, 24 HR URINE 6.2 6 OR LESS mg/24 h This test was developed and its analytical performance characteristics have been determined by [facility]. It has not been cleared or approved by the FDA. This assay has been validated pursuant to the CLIA regulations and is used for clinical purposes. CREATININE, URINE 1.84 0.50-2.15 g/24 h TRYPTASE Reviewed date:05/15/2024 03:17:40 PM Interpretation:Normal Performing Lab:DEAN, [facility], [address], [place], [address] Willie Bonds M.D.,PhD Notes/Report: NON-FASTING; NON-FASTING; NON-FASTING URINE VOLUME: 850/24 TRYPTASE 7.5 <11.0 mcg/L The Tryptase test, fluorescent enzyme immunoassay (FEIA), measures both the Alpha and Beta forms of Tryptase. Measuring both forms of Tryptase increases sensitivity for the diagnosis of mastocytosis, and mast cell degranulation as a cause of anaphylaxis. METANEPHRINES, FRACT, FREE, LC/MS/MS, PLASMA Reviewed date:05/15/2024 03:17:54 PM Interpretation:Normal Performing Lab:DEAN, [facility], [address], [place], [address] Willie Bonds M.D.,PhD Notes/Report: NON-FASTING; NON-FASTING; NON-FASTING URINE VOLUME: 850/24 METANEPHRINE, FREE <25 <=57 pg/mL This test was developed and its analytical performance characteristics have been determined by [facility] [place] [place]. It has not been cleared or approved by the U.S. Food and Drug Administration. This assay has been validated pursuant to the CLIA regulations and is used for clinical purposes. NORMETANEPHRINE, FREE 92 <=148 pg/mL This test was developed and its analytical performance characteristics have been determined by [facility] [place] [place]. It has not been cleared or approved by the U.S. Food and Drug Administration. This assay has been validated pursuant to the CLIA regulations and is used for clinical purposes. TOTAL, FREE (MN+NMN) 92 <=205 pg/mL For additional information, please refer to http://education.[employer]/faq/[employer] (This link is being provided for informational/educatio [...] analytical performance characteristics have been determined by [facility] [place] [place]. It has not been cleared or approved by the U.S. Food and Drug Administration. This assay has been validated pursuant to the CLIA regulations and is used for clinical purposes. METANEPHRINES, FRACT. LC/MS/ MS, 24 HR URINE Reviewed date:05/16/2024 11:06:08 AM Interpretation:Normal Performing Lab:DEAN, [facility], [address], [place], [address] Willie Bonds M.D.,PhD Notes/Report: NON-FASTING; NON-FASTING; NON-FASTING; NON-FASTING URINE VOLUME: 850/24 TOTAL VOLUME 850 METANEPHRINE 152 90-315 mcg/24 h This test was developed and its analytical performance characteristics have been determined by [facility] [place] [place]. It has not been cleared or approved by the U.S. Food and Drug Administration. This assay has been validated pursuant to the CLIA regulations and is used for clinical purposes. NORMETANEPHRINE 485 122-676 mcg/24 h This test was developed and its analytical performance characteristics have been determined by [facility] [place] [place]. It has not been cleared or [...] Vaccine Route Administration Date Status Comme nts Allergy Immunotherapy Weekly Unknown 07/21/1972 Administered Portal Informati on Influenza Unknown 11/21/2019 Administered Portal Infor mation Shingrix Unknown 05/15/2017 Administered Shingrix Unknown 07/23/2017 Administered Covid 19 (Pfizer) Unknown 02/05/2020 Administered Covid 19 (Pfizer) Unknown 02/26/2020 Administered Covid 19 (Pfizer) Unknown 02/26/2020 Administered Covid 19 (Pfizer) Unknown 11/16/2020 Administered Social History Tobacco Use: Social History [...] Problem Chronic migraine without aura, non-refractory (disorder) (460215313945726) Migraine without aura, not intractable, without status migrainosus (G43.009) Active confirmed Problem Refractory migraine without aura (235268849) Migraine without aura, intractable, with status migrainosus (G43.011) Active confirmed Problem Migraine with aura (0243746) Migraine with aura, not intractable, without status migrainosus (G43.109) Active confirmed Problem Chronic migraine without aura, non-intractable (377371492512584) Chronic migraine without aura, not intractable, without status migrainosus (G43.709) Active confirmed Problem Tension-type headach e (689322110) Tension-type headache, unspecified, not intractable (G44.209) Active confirmed Problem New daily persistent headache (819364508924866) New daily persistent headache (NDPH) (G44.52) Active confirmed Problem Chronic allergic conjunctivitis (19071821) Other chronic allergic conjunctivitis (H10.45) Active confirmed Problem Essential hypertensi on (91543402) Essential (primary) hypertension (I10) Active confirmed Problem Allergic rhinitis (23690190) Other allergic rhinitis (J30.89) Active confirmed Problem Flushing (75504051) Flushing (R23.2) Active con firmed Problem Adverse reaction caused by drug (disorder) (45744508) Adverse effect of unspecified drugs, medicaments and biological substances, initial encounter (T50.905A) Active confirmed Problem Adverse reaction caused by drug (85691539) Adverse effect of other drugs, medicaments and biological substances, initial encounter (T50.995A) Active confirmed Problem Allergic rhinitis caused by pollen (disorder) (40159292) Allergic rhinitis due to pollen (J30.1) Active confirmed Problem Allergic rhinitis caused by animal hair and dander (261844554926849) Allergic rhinitis due to animal (cat) (dog) hair and dander (J30.81) Active confirmed Problem Eosinophilic esophagitis (554229733) Eosinophilic esophagitis (K20.0) Active confirmed Problem Pure hypercholesterolemia (625210666) Pure hypercholesterol emia, unspecified (E78.00) Active confirmed Problem Benign prostatic hypertrophy without outflow obstruction (117605611) Benign prostatic hyperplasia without lower urinary tract symptoms (N40.0) Active confirmed Vital Signs Respiratory Rate 18 /min 04/19/2024 Blood pressure diastolic 78 mm Hg 04/19/2024 Oximetry 97 % 04/19/2024 Height 72 in 04/19/2024 Blood pressure systolic 132 mm Hg 04/19/2024 Weight 304.8 lbs 04/19/2024 BMI 41.33 kg/m2 04/19/2024 Encounters Encounter Location Date Provider Diagnosis [facility] [address] [place] [address] 05/17/2024 Willie Nelson Allergic rhinitis du e to pollen J30.1 ; Allergic rhinitis due to animal (cat) (dog) hair and dander J30.81 ; Other allergic rhinitis J30.89 and Other chronic allergic conjunctivitis H10.45 [facility] [address] [place] [address] 03/22/2024 Willie Nelson Allergic rhinitis du e to pollen J30.1 ; Allergic rhinitis due to animal (cat) (dog) hair and dander J30.81 ; Other allergic rhinitis J30.89 and Other chronic allergic conjunctivitis H10.45 [facility] [address] [place] [address] 02/23/2024 Willie Nelson Allergic rhinitis du e to pollen J30.1 ; Allergic rhinitis due to animal (cat) (dog) hair and dander J30.81 ; Other allergic rhinitis J30.89 and Other chronic allergic conjunctivitis H10.45 [facility] [address] [place] [address] 02/06/2024 Willie Nelson Allergic rhinitis du e to pollen J30.1 ; Allergic rhinitis due to animal (cat) (dog) hair and dander J30.81 ; Other allergic rhinitis J30.89 and Other chronic allergic conjunctivitis H10.45 [facility] [address] [place] [address] 02/02/2024 Willie Nelson Allergic rhinitis du e to pollen J30.1 ; Allergic rhinitis due to animal (cat) (dog) hair and dander J30.81 ; Other allergic rhinitis J30.89 and Other chronic allergic conjunctivitis H10.45 [facility] [address] [place] [address] 01/26/2024 Willie Nelson Allergic rhinitis du e to pollen J30.1 ; Allergic rhinitis due to animal (cat) (dog) hair and dander J30.81 ; Other allergic rhinitis J30.89 and Other chronic allergic conjunctivitis H10.45 [facility] [address] [place] [address] 12/29/2023 Willie Omar Allergic rhinitis du e to pollen J30.1 ; Allergic rhinitis due to animal (cat) (dog) hair and dander J30.81 ; Other allergic rhinitis J30.89 and Other chronic allergic conjunctivitis H10.45 [facility] [address] [place] [address] 10/26/2023 Willie Nelson Allergic rhinitis du e to pollen J30.1 ; Allergic rhinitis due to animal (cat) (dog) hair and dander J30.81 ; Other allergic rhinitis J30.89 and Other chronic allergic conjunctivitis H10.45 [facility] [address] [place] [address] 09/06/2024 Willie Nelson Allergic rhinitis du e to pollen J30.1 ; Allergic rhinitis due to animal (cat) (dog) hair and dander J30.81 ; Other allergic rhinitis J30.89 and Other chronic allergic conjunctivitis H10.45 [facility] [address] [place] [address] 08/09/2024 Willie Nelson Allergic rhinitis du e to pollen J30.1 ; Allergic rhinitis due to animal (cat) (dog) hair and dander J30.81 ; Other allergic rhinitis J30.89 and Other chronic allergic conjunctivitis H10.45 [facility] [address] [place] [address] 07/12/2024 Willie Nelson Allergic rhinitis du e to pollen J30.1 ; Allergic rhinitis due to animal (cat) (dog) hair and dander J30.81 ; Other allergic rhinitis J30.89 and Other chronic allergic conjunctivitis H10.45 [facility] [address] [place] [phone] 04/19/2024 Shanae Munson Eosinophilic esophag itis K20.0 ; Flushing R23.2 ; Allergic rhinitis due to pollen J30.1 ; Allergic rhinitis due to animal (cat) (dog) hair and dander J30.81 ; Other allergic rhinitis J30.89 ; Other chronic allergic conjunctivitis H10.45 ; Essential (primary) hypertension I10 and Migraine without aura, intractable, with status migrainosus G43.011 [facility] [address] [place] [phone] 12/01/2023 Shanae Munson Eosinophilic esophag itis K20.0 ; Flushing R23.2 ; Allergic rhinitis due to pollen J30.1 ; Allergic rhinitis due to animal (cat) (dog) hair and dander J30.81 ; Other allergic rhinitis J30.89 ; Other chronic allergic conjunctivitis H10.45 ; Essential (primary) hypertension I10 and Migraine without aura, intractable, with status migrainosus G43.011 [facility] [address] [place] [address] 06/19/2024 Willie Nelson Allergic rhinitis du e to pollen J30.1 ; Allergic rhinitis due to animal (cat) (dog) hair and dander J30.81 ; Other allergic rhinitis J30.89 and Other chronic allergic conjunctivitis H10.45 [facility] [address] [place] [address] 07/23/2024 Shanae Munson [facility] [address] [place] [address] 12/01/2023 Shanae Munson Assessments Encounter Date Diagnosis (ICD Code) Assessment Notes Treatment Notes Treatment Clinical Notes Section Notes 10/26/2023 Allergic rhinitis due to pollen (ICD-10 - J30.1) 12/01/2023 Flushing (ICD-10 - R23.2) As above, facial flushing noted with every Dupixent injection, typically hrs to days later but still occurring -wants to continue despite this SE -lately feels this is due to side effects of his BP meds over Dupixent. Speak to doctor. He recently decreased dosing due dizziness/low BP 12/29/2023 Allergic rhinitis due to pollen (ICD-10 - J30.1) 01/26/2024 Allergic rhinitis due to pollen (ICD-10 - J30.1) 02/02/2024 Allergic rhinitis due to pollen (ICD-10 - J30.1) 02/06/2024 Allergic rhinitis due to pollen (ICD-10 - J30.1) 02/23/2024 Allergic rhinitis due to pollen (ICD-10 - J30.1) 03/22/2024 Allergic rhinitis due to pollen (ICD-10 [...] in 3-4 months for E&M. AIE updated 04/19/2024 Flushing (ICD-10 - R23.2) As above, [...] in 6 months for E&M. AIE updated 05/17/2024 Allergic rhinitis due to pollen (ICD-10 - J30.1) 06/19/2024 Allergic rhinitis due to pollen (ICD-10 - J30.1) 07/12/2024 Allergic rhinitis due to pollen (ICD-10 - J30.1) 08/09/2024 Allergic rhinitis due to pollen (ICD-10 - J30.1) 09/06/2024 Allergic rhinitis due to pollen (ICD-10 - J30.1) 09/06/2024 Allergic rhinitis due to animal (cat) (dog) hair and dander (ICD-10 - J30.81) 08/09/2024 Allergic rhinitis due to animal (cat) (dog) hair and dander (ICD-10 - J30.81) 07/12/2024 Allergic rhinitis due to animal (cat) (dog) hair and dander (ICD-10 - J30.81) 06/19/2024 Allergic rhinitis due to animal (cat) (dog) hair and dander (ICD-10 - J30.81) 05/17/2024 Allergic rhinitis due to animal (cat) [...] reduced and is back up feeling well 03/22/2024 Allergic rhinitis due to animal (cat) (dog) hair and dander (ICD-10 - J30.81) 02/23/2024 Allergic rhinitis due to animal (cat) (dog) hair and dander (ICD-10 - J30.81) 02/06/2024 Allergic rhinitis due to animal (cat) (dog) hair and dander (ICD-10 - J30.81) 02/02/2024 Allergic rhinitis due to animal (cat) (dog) hair and dander (ICD-10 - J30.81) 01/26/2024 Allergic rhinitis due to animal (cat) [...] reduced and is back up feeling well 10/26/2023 Allergic rhinitis due to animal (cat) (dog) hair and dander (ICD-10 - J30.81) 10/26/2023 Other allergic rhinitis (ICD-10 - J30.89) 12/01/2023 Allergic rhinitis due to animal (cat) (dog) hair and dander (ICD-10 - J30.81) Follow allergen avoidance, meds and continue SCIT as an adjunctive treatment to current regimen 12/29/2023 Other allergic rhinitis (ICD-10 - J30.89) 01/26/2024 Other allergic rhinitis (ICD-10 - J30.89) 02/02/2024 Other allergic rhinitis (ICD-10 - J30.89) 02/06/2024 Other allergic rhinitis (ICD-10 - J30.89) 02/23/2024 Other allergic rhinitis (ICD-10 - J30.89) 03/22/2024 Other allergic rhinitis (ICD-10 - J30.89) 04/19/2024 Allergic rhinitis due to animal (cat) (dog) hair and dander (ICD-10 - J30.81) Follow allergen avoidance, meds and continue SCIT as an adjunctive treatment to current regimen 05/17/2024 Other allergic rhinitis (ICD-10 - J30.89) 06/19/2024 Other allergic rhinitis (ICD-10 - J30.89) 07/12/2024 Other allergic rhinitis (ICD-10 - J30.89) 08/09/2024 Other allergic rhinitis (ICD-10 - J30.89) 09/06/2024 Other allergic rhinitis (ICD-10 - J30.89) 04/19/2024 Other allergic rhinitis (ICD-10 - J30.89) Follow allergen avoidance, meds and continue SCIT as an adjunctive treatment to current regimen 09/06/2024 Other chronic allergic conjunctivitis (ICD-10 - H10.45) 08/09/2024 Other chronic allergic conjunctivitis (ICD-10 - H10.45) 07/12/2024 Other chronic allergic conjunctivitis (ICD-10 - H10.45) 06/19/2024 Other chronic allergic conjunctivitis (ICD-10 - H10.45) 05/17/2024 Other chronic allergic conjunctivitis (ICD-10 - H10.45) 12/29/2023 Other chronic allergic conjunctivitis (ICD-10 - H10.45) 03/22/2024 Other chronic allergic conjunctivitis (ICD-10 - H10.45) 02/23/2024 Other chronic allergic conjunctivitis (ICD-10 - H10.45) 02/06/2024 Other chronic allergic conjunctivitis (ICD-10 - H10.45) 02/02/2024 Other chronic allergic conjunctivitis (ICD-10 - H10.45) 01/26/2024 Other chronic allergic conjunctivitis (ICD-10 - H10.45) 12/01/2023 Other allergic rhinitis (ICD-10 - J30.89) Follow allergen avoidance, meds and continue SCIT as an adjunctive treatment to current regimen 10/26/2023 Other chronic allergic conjunctivitis (ICD-10 - H10.45) 12/01/2023 Other chronic allergic conjunctivitis (ICD-10 - H10.45) Given ocular signs and symptoms I encouraged allergy avoidance measures and meds as above. If symptoms persist, consider adding additional medications including intraocular antihistamine/mast cell stabilizer, PRN and continue SCIT as an adjunctive measure 04/19/2024 Other chronic allergic conjunctivitis (ICD-10 - H10.45) Given ocular signs and symptoms I encouraged allergy avoidance measures and meds as above. If symptoms persist, consider adding additional medications including intraocular antihistamine/mast cell stabilizer, PRN and continue SCIT as an adjunctive measure 04/19/2024 Essential (primary) hypertension (ICD-10 - I10) We discussed the difficulty in treating systemic reactions in patients taking beta blockers. He was instructed to hold the beta butch the morning of immunotherapy and take the medication 2 hours after leaving the office 12/01/2023 Essential (primary) hypertension (ICD-10 - I10) We discussed the difficulty in treating systemic reactions in patients taking beta blockers. He was instructed to hold the beta butch the morning of immunotherapy and take the medication 2 hours after leaving the office 12/01/2023 Migraine without aura, intractable, with status migrainosus (ICD-10 - G43.011) Seen by Dr. Villalpando, thought to be related to recent COVID vaccine -doing better 04/19/2024 Migraine without aura, intractable, with status migrainosus (ICD-10 - G43.011) Seen by Dr. Villalpando, thought to be related to prior COVID vaccine -doing better Plan Of Treatment [...] Name:Willie Nelson , 10/04/2024 10:30:00 AM, [address], [address], [place], [address], Provider Name:Shanae Munson , 11/01/2024 10:30:00 AM, [address], [address], [place], [address], Insurance Providers Payer Name Payer Address Payer Phone Subscriber Number Group Number Insured Name Patient Relationship to Insured Coverage Start Date Coverage End Date [employer] (Medicare) Attention Claims [address] [place] [address] [id number] Ron Gutierrez Self - patient is the insured 4 [facility] [address] [place] [address] [id number] Ron Gutierrez Self - patient is the [...]
--- OUTSIDE RECORDS SUMMARY | 2024-10-03 11:23 | XMS_ITS | Clinical Summary ---
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
--- OUTSIDE RECORDS SUMMARY | 2024-10-03 11:23 | XMS_ITS | Clinical Summary ---
Author Organization [facility] [address] Address [address] [place] [address] Care Team Providers Care Cnc Router Operator Name Role Phone Geo Matos DO Primary Care Provider [phone] Allergies No known active allergies Medications tadalafiL [...] Type Department Care Team Description 09/26/2024 Telephone [facility] Medicine Otolaryngology [address] [phone] Emilia Garcia MS 09/19/2024 11:15 AM CDT Office Visit [facility] Medical Group Cardiology [address] [place] [address] Pawan Wolf MD Essential hypertension (Primary Dx); PVC (premature ventricular contraction); Mild aortic regurgitation; Severe obesity (BMI 35.0-39.9) with comorbidity (HCC); SAMIA on CPAP; Lipid screening 08/03/2024 Telephone [facility] Medical [facility] Cardiology [address] [place] [address] Laurel Woody MA from Last [...] on file 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
[2024-10-03 14:00] LABS: Free T4 Free Thyroxine 0.83 ng/dL (0.78-2.19)
[2024-10-03 15:02] LABS: Thyroid Stimulating Hormone 2.400 uIU/mL (0.465-4.680)
[2024-10-03 15:37] LABS: Vitamin B12 620.0 pg/mL (239-931)
== END 2024-10-03 10:48 | disposition home or self-care (01) ==
LOC: ANHGOSHLAB 10:49
PROVIDERS: PCP Internal Medicine; Visit Provider Internal Medicine
DX: R41.3 Other amnesia (principal)
CPT/HCPCS: 36415; 82607; 82746; 84439; 84443